=== PATIENT | male | born 1940 | race Caucasian/White ===

== ENCOUNTER 2019-10-05 10:28 | Outpatient (CLI) | payer MEDICARE, SELFPAY ==
--- NOTE | ~2019-10-05 | CT_ITS ---
EXAMINATION: CT soft tissue neck w con DATE: 10/05/2019 11:12 INDICATION: Sialoadenitis and acute pharyngitis. TECHNIQUE: Computed tomography (CT) of the neck was performed with 75 mL Omnipaque-350 intravenous co ntrast. Automated exposure control and iterative reconstruction technique were employed. The dose-ivan gth product was 602.58 mGy-cm. COMPARISON: None FINDINGS: Thyroid gland is unremarkable. There is a small lobule of the right parotid which extends anteriorly over the right masseter muscle which is unchanged since brain MR dated 12/23/2008. Submandibular and p arotid glands are otherwise symmetric. The deep spaces of the neck including the parapharyngeal soft tissues appear normal and symmetric. No abscess. There are scattered normal-sized lymph nodes in the neck, no lymphadenopathy. No masses identified. Atherosclerotic calcifications without hemodynamical ly significant stenosis at the left carotid bulb. Left internal carotid arteries are tortuous. Left v ertebral artery is dominant. Mastoid air cells and visualized paranasal sinuses are clear. Airway is unremarkable. Calcified pleural plaques along small portions of the visualized posterior left hemitho rax. Ectatic ascending thoracic aorta measuring up to 4.4 x 4.3 cm. Visualized superior mediastinum i s otherwise unremarkable. Severe cervical spondylosis. Partially visualized thoracic dextroscoliosis. IMPRESSION: 1. The salivary glands, prior pharyngeal soft tissues and other deep spaces of the neck are unremarka ble. No abscess. Reviewed, dictated and finalized at location A. IMPRESSION: 1. The salivary glands, prior pharyngeal soft tissues and other deep spaces of the neck are unremarkable. No abscess.
[2019-10-05 11:04] LABS: Estimated Glomerular Filt Rate > 60
[2019-10-05 11:38] LABS: Hemoglobin A1C 5.3 % (<5.7)
[2019-10-05 11:40] LABS: Blood Urea Nitrogen 13 mg/dL (9-20); Calcium 8.7 mg/dL (8.4-10.2); Carbon Dioxide 28 mmol/L (22-30); Chloride 105 mmol/L (98-107); Cholesterol 117 mg/dL (0-200); Estimated Glomerular Filt Rate > 60; Glucose 96 mg/dL (75-110); HDL Direct 46 mg/dL; Potassium 4.6 mmol/L (3.4-5.0); Sodium 135 mmol/L (137-145); Triglycerides 71 mg/dL (<150)
[2019-10-05 11:51] LABS: LDL Cholesterol Direct 57 mg/dL
[2019-10-05 12:00] LABS: Basophils Absolute Auto 0.1 K/mm3 (0.0-0.1); Basophils Percent Auto 1.2 % (0.2-1.2); Eosinophils Absolute Auto 0.3 K/mm3 (0-0.3); Eosinophils Percent Auto 3.6 % (0-4.4); Hematocrit 37.6 % (42.0-52.0); Hemoglobin 12.4 g/dL (14.0-18.0); Immature Granulocyte Absolute 0.02 K/mm3 (0.00-0.031); Immature Granulocyte Percent A 0.3 % (0-0.5); Lymphocytes Absolute Auto 1.27 K/mm3 (0.9-3.2); Lymphocytes Percent Auto 16.9 % (18.3-44.2); Mean Corpuscular Hemoglobin 32.1 pg (26-34); Mean Corpuscular Volume 97.4 fl (80-100); Mean Platelet Volume 12.2 fl (7.4-10.4); Monocytes Absolute Auto 0.9 K/mm3 (0.1-0.6); Monocytes Percent Auto 12.5 % (2.6-8.5); Neutrophils Absolute Auto 4.9 K/mm3 (1.3-6.7); Neutrophils Percent Auto 65.5 % (45.5-73.1); Platelet Count Result 128 k/mm3 (150-375); Red Blood Count 3.86 M/mm3 (4.6-6.20); Red Cell Distribution Width 12.8 % (11.5-14.5); White Blood Count 7.5 K/mm3 (4.5-10.0)
[2019-10-06 18:34] LABS: Homocysteine 8.6 umol/L (<11.4)
== END 2019-10-05 10:29 | disposition home or self-care (01) ==
PROVIDERS: PCP Internal Medicine; Visit Provider Internal Medicine
DX: J02.9 Acute pharyngitis, unspecified (principal); K11.20 Sialoadenitis, unspecified; Z79.899 Other long term (current) drug therapy; R79.89 Other specified abnormal findings of blood chemistry; E78.2 Mixed hyperlipidemia
CPT/HCPCS: 36415; 70491; 80048; 80061; 83036; 83090; 85025; Q9967

== ENCOUNTER → 2020-02-23 10:45 | Outpatient (CLI) | payer MEDICARE, SELFPAY ==
--- NOTE | ~2020-02-23 | MR_ITS ---
EXAMINATION: MR lumbar spine wo con DATE: 02/23/2020 11:40 INDICATION: Low back pain. TECHNIQUE: Magnetic resonance imaging (MRI) of the lumbar spine was performed without intravenous con trast. Sequences included sagittal T2-weighted FSE, sagittal T2-weighted FS FSE, sagittal T1-weighted FSE, and axial T2-weighted FSE. COMPARISON: Lumbar spine MRI 09/01/2018 FINDINGS: There is 11 degrees dextroscoliosis of thoracolumbar spine. There is a chronic burst fractu re of L3 with 2/5 loss of height and retropulsion of bone 2 mm into central spinal canal. Interverteb ral disc heights are normal. The distal spinal cord signal intensity is normal. The conus medullaris is at L1. There are cysts in the kidneys measuring up to 3.4 cm on the right. The following disc leve ls are specifically discussed: L1-L2: The disc is bulging. There is severe bilateral facet joint osteoarthritis. There is mild later al neural foraminal stenosis. There is mild central canal stenosis. L2-L3: The disc is bulging. There is severe bilateral facet joint osteoarthritis. There is hypertroph y of the ligamentum flavum. There is mild bilateral neural foraminal stenosis. There is mild central canal stenosis. L3-L4: The disc is bulging. There is severe bilateral facet joint osteoarthritis. There is hypertroph y of the ligamentum flavum. There is mild bilateral neural foraminal stenosis. There is mild central canal stenosis. L4-L5: The disc is bulging and has an annular fissure. There is severe bilateral facet joint osteoart hritis. There is hypertrophy of the ligamentum flavum. There is mild bilateral neural foraminal steno sis. There is mild central canal stenosis. L5-S1: The disc is bulging and has an annular fissure. There is severe right and moderate left facet joint osteoarthritis. There is mild right neural foraminal stenosis. There is mild central canal sten osis. IMPRESSION: 1. Mild lumbar spondylosis, stable from 09/01/2018. 2. Thoracolumbar dextroscoliosis. Reviewed, dictated and finalized at location B.
== END ==
PROVIDERS: PCP Internal Medicine; Visit Provider Nurse Practitioner Family
DX: M47.896 Other spondylosis, lumbar region (principal)
CPT/HCPCS: 72148

== ENCOUNTER 2020-05-03 12:19 | Outpatient (CLI) | payer MEDICARE, SELFPAY ==
--- NOTE | ~2020-05-03 | XR_ITS ---
EXAMINATION: XR shoulder RT min 2V DATE: 05/03/2020 13:29 INDICATION: Right shoulder pain. TECHNIQUE: 4 views of right shoulder were obtained. COMPARISON: Right shoulder radiographs 07/08/2014 FINDINGS: Bone alignment is normal. No fracture. There is mild osteoarthritis of glenohumeral joint a nd moderate osteoarthritis of acromioclavicular joint. There are changes of heart valve replacement. IMPRESSION: 1. Polyarticular osteoarthritis. Reviewed, dictated and finalized at location A.
[2020-05-03 14:04] LABS: Basophils Absolute Auto 0.1 K/mm3 (0.0-0.1); Basophils Percent Auto 0.6 % (0.2-1.2); Eosinophils Percent Auto 0.4 % (0-4.4); Hematocrit 41.1 % (42.0-52.0); Hemoglobin 13.7 g/dL (14.0-18.0); Immature Granulocyte Absolute 0.04 K/mm3 (0.00-0.031); Immature Granulocyte Percent A 0.4 % (0-0.5); Lymphocytes Absolute Auto 1.12 K/mm3 (0.9-3.2); Lymphocytes Percent Auto 11.2 % (18.3-44.2); Mean Corpuscular HGB Conc 33.3 g/dl (32-36); Mean Corpuscular Hemoglobin 32.9 pg (26-34); Mean Corpuscular Volume 98.8 fl (80-100); Mean Platelet Volume 11.6 fl (7.4-10.4); Monocytes Absolute Auto 1.2 K/mm3 (0.1-0.6); Neutrophils Absolute Auto 7.5 K/mm3 (1.3-6.7); Neutrophils Percent Auto 75.4 % (45.5-73.1); Platelet Count Result 203 k/mm3 (150-375); Red Blood Count 4.16 M/mm3 (4.6-6.20); Red Cell Distribution Width 12.8 % (11.5-14.5)
[2020-05-03 14:05] LABS: Alanine Aminotransferase 9 U/L (4-50); Alkaline Phosphatase 99 U/L (38-126); Anion Gap 5 mmol/L (8-16); Aspartate Amino Transferase 21 U/L (17-59); Bilirubin,Total 2.1 mg/dL (0.2-1.3); Blood Urea Nitrogen 14 mg/dL (9-20); Carbon Dioxide 31 mmol/L (22-30); Chloride 104 mmol/L (98-107); Estimated Glomerular Filt Rate > 60; Glucose 103 mg/dL (75-110); Lactate Dehydrogenase 477 U/L (313-618); Potassium 5.3 mmol/L (3.4-5.0); Sodium 140 mmol/L (137-145)
[2020-05-03 14:08] LABS: Add Urine Microscopic? YES; Appearance Urine Clear (Clear); Bacteria Urine Trace /hpf; Bilirubin Urine Negative (Negative); Blood Urine Negative (Negative); Color Urine Yellow (Yellow); Glucose Urine UA Negative (Negative); Ketones Urine Trace mg/dL (Negative); Leukocyte Esterase Ur Negative LEU/UL (NEGATIVE); Mucus Urine Few /lpf; Nitrate Urine Negative (Negative); Protein Urine Negative (Negative); RBC Urine 0-2 /hpf (0-2); Specific Grav Ur 1.021 (1.001-1.035); WBC Urine 0-3 /hpf (0-3)
[2020-05-03 14:39] LABS: Free T4 Free Thyroxine 1.05 ng/mL (0.78-2.19)
[2020-05-03 14:46] LABS: Influenza Control Positive
== END 2020-05-03 12:20 | disposition home or self-care (01) ==
PROVIDERS: PCP Internal Medicine; Visit Provider Internal Medicine
DX: R53.83 Other fatigue (principal); R61 Generalized hyperhidrosis; R69 Illness, unspecified; M25.50 Pain in unspecified joint; M25.519 Pain in unspecified shoulder
CPT/HCPCS: 73030; 80053; 81001; 83615; 84439; 84443; 85025; 87086; 87804

== ENCOUNTER 2020-05-05 09:22 | Outpatient (CLI) | payer MEDICARE, SELFPAY ==
[2020-05-05 10:06] LABS: CRP 1.7 mg/dL (<1.0)
[2020-05-05 10:54] LABS: Erythrocyte Sedimentation Rate 23 mm/hr (0-20)
== END 2020-05-05 09:23 | disposition home or self-care (01) ==
PROVIDERS: PCP Internal Medicine; Visit Provider Internal Medicine
DX: M25.50 Pain in unspecified joint (principal)
CPT/HCPCS: 36415; 85652; 86140

== ENCOUNTER 2020-05-10 14:20 | Outpatient (CLI) | payer MEDICARE, SELFPAY ==
--- NOTE | ~2020-05-10 | CT_ITS ---
EXAMINATION: CT chest abdomen pelvis w con DATE: 05/10/2020 16:09 CDT INDICATION: Abnormal weight loss. TECHNIQUE: Computed tomography (CT) of the chest, abdomen, and pelvis was performed with 100 cc Omnip aque 350 intravenous contrast. The dose-length product was 761.07 mGy-cm. Automated exposure control and iterative reconstruction technique were employed. COMPARISON: CT dated 07/03/2018 FINDINGS: CHEST CT: Status post median sternotomy for CABG. Prosthetic aortic valve present. Cardiomegaly. No significant pleural or pericardial effusion. There is fusiform ascending thoracic aortic aneurysm measuring 4 cm . There is atherosclerosis of the aorta and coronary arteries. No thoracic lymphadenopathy. No endobr onchial lesions. No focal airspace consolidation. No suspicious pulmonary nodules or masses. ABDOMEN/PELVIS CT: Status post cholecystectomy with expected prominence of the bile ducts. There are calcified granuloma s in the spleen. There is mild pancreatic ductal dilation. The adrenal glands are unremarkable. There are bilateral renal cysts. There is bilateral renal cortical thinning. No evidence for abdominal aor tic aneurysm. No lymphadenopathy. No free air or free fluid. Nonobstructive bowel gas pattern. There is a surgical anastomotic site in the distal colon. Mild prostate enlargement. Stable sclerotic lesio n left ilium, likely bone islands. There are vertebroplasty changes at L3. Moderate thoracic spondylo sis. IMPRESSION: 1. Fusiform ascending thoracic aortic aneurysm measuring 4 cm. 2: Cardiomegaly. Status post median sternotomy for CABG. Prosthetic aortic valve present. 3: Status post cholecystectomy with expected prominence of the bile ducts and pancreatic duct. Reviewed, dictated and finalized at location A. IMPRESSION: 1. Fusiform ascending thoracic aortic aneurysm measuring 4 cm. 2: Cardiomegaly. Status post median sternotomy for CABG. Prosthetic aortic valv e present. 3: Status post cholecystectomy with expected prominence of the bile ducts and p ancreatic duct.
== END 2020-05-10 14:21 | disposition home or self-care (01) ==
PROVIDERS: PCP Internal Medicine; Visit Provider Internal Medicine
DX: R63.4 Abnormal weight loss (principal); I71.2 Thoracic aortic aneurysm, without rupture; Z90.49 Acquired absence of other specified parts of digestive tract; I51.7 Cardiomegaly
CPT/HCPCS: 71260; 74177; Q9967

== ENCOUNTER 2020-06-30 08:15 | Outpatient (CLI) | payer MEDICARE, SELFPAY ==
[2020-06-30 08:36] LABS: Basophils Absolute Auto 0.1 K/mm3 (0.0-0.1); Basophils Percent Auto 0.4 % (0.2-1.2); Eosinophils Absolute Auto 0.1 K/mm3 (0-0.3); Eosinophils Percent Auto 0.9 % (0-4.4); Hemoglobin 13.5 g/dL (14.0-18.0); Immature Granulocyte Percent A 2.1 % (0-0.5); Immature Platelet Fraction Pct 4.7 % (0.9-11.2); Lymphocytes Percent Auto 3.6 % (18.3-44.2); Mean Corpuscular HGB Conc 33.8 g/dl (32-36); Mean Corpuscular Hemoglobin 34.4 pg (26-34); Mean Platelet Volume 10.5 fl (7.4-10.4); Monocytes Absolute Auto 1.3 K/mm3 (0.1-0.6); Monocytes Percent Auto 9.1 % (2.6-8.5); Neutrophils Absolute Auto 11.8 K/mm3 (1.3-6.7); Neutrophils Percent Auto 83.9 % (45.5-73.1); Platelet Count Result 139 k/mm3 (150-375); Red Blood Count 3.92 M/mm3 (4.6-6.20); Red Cell Distribution Width 15.1 % (11.5-14.5)
[2020-06-30 08:47] LABS: Alanine Aminotransferase 17 U/L (4-50); Albumin Level 3.3 g/dL (3.5-5.1); Alkaline Phosphatase 57 U/L (38-126); Anion Gap 3 mmol/L (8-16); Aspartate Amino Transferase 24 U/L (17-59); Bilirubin,Total 1.8 mg/dL (0.2-1.3); Blood Urea Nitrogen 19 mg/dL (9-20); CRP 1.2 mg/dL (<1.0); Calcium 8.8 mg/dL (8.4-10.2); Carbon Dioxide 31 mmol/L (22-30); Chloride 101 mmol/L (98-107); Cholesterol 161 mg/dL (0-200); Estimated Glomerular Filt Rate > 60; Glucose 96 mg/dL (75-110); HDL Direct 73 mg/dL; Potassium 4.5 mmol/L (3.4-5.0); Sodium 135 mmol/L (137-145); Triglycerides 105 mg/dL (<150)
[2020-06-30 08:56] LABS: LDL Cholesterol Direct 64 mg/dL
[2020-06-30 09:16] LABS: Erythrocyte Sedimentation Rate 6 mm/hr (0-20)
[2020-06-30 09:19] LABS: Free T4 Free Thyroxine 0.95 ng/mL (0.78-2.19)
[2020-06-30 09:55] LABS: Folic Acid > 20.0 ng/mL (2.76->20)
== END 2020-06-30 08:16 | disposition home or self-care (01) ==
PROVIDERS: PCP Internal Medicine; Visit Provider Internal Medicine
DX: M35.3 Polymyalgia rheumatica (principal); Z79.899 Other long term (current) drug therapy; E53.8 Deficiency of other specified B group vitamins; E78.2 Mixed hyperlipidemia
CPT/HCPCS: 36415; 80053; 80061; 82607; 82746; 84439; 84443; 85025; 85055; 85652; 86140

== ENCOUNTER 2020-07-17 09:13 | Emergency (ER) | payer MEDICARE, SELFPAY ==
--- NOTE | ~2020-07-17 | XR_ITS ---
XR lumbar spine min 4V 07/17/2020 10:48 Indication: Low back pain after fall Procedure: 5 views lumbar spine Comparison: 09/01/2018 Findings: There is a chronic superior plate compression fracture treated with vertebroplasty. There i s extruded methacrylate in the disc space at L2-3. There is disc narrowing at the remainder of the clem mbar levels. There is moderate multilevel facet hypertrophy. No acute fracture or traumatic malalignm ent. Pedicles intact. There is dextrocurvature of the thoracolumbar spine. Impression: 1: Moderate lumbar spondylosis with dextrocurvature of the thoracolumbar spine. Reviewed, dictated and finalized at location A. [employer] Impression: 1: Moderate lumbar spondylosis with dextrocurvature of the thoracolumbar spine.
[2020-07-17 09:22] VITALS: BP 144/73; PULSE 74; RESP 18; TEMP 36.3; O2SAT 100
--- NOTE | 2020-07-17 10:02 | ED.FALL ---
HPI - Fall General Chief Complaint: Fall Stated Complaint: Fall - LEFT side pain Time Seen by Provider: 07/17/20 09:52 History of Present Illness HPI Narrative: Patient is a 79-year-old male with history of chronic low back pain who comes emergency room today complaining of worsening low back pain after a fall. Patient reports that he was just coming home from walking his dog when it felt like his left leg gave out and he fell down. He landed on his left knee and then caught himself with his hands. He did not hit his head or hit his abdomen or hit his back. reports that this made his back pain worse. Reports similar history of back pain in the past but not quite this severe. The pain is nonradiating. There is no numbness or tingling. No bowel or bladder incontinence. No fevers. Pain seems to be worse when he lies down. Able to ambulate without assistance which does not exacerbate his pain. He is already on Jeff and prednisone and meloxicam at home for his chronic back pain. He also gets injections for his chronic pain. Related Data Home Medications Medication Instructions Recorded Confirmed aspirin 81 mg tablet,delayed 81 mg PO DAILY 06/04/19 07/03/20 release carvedilol 3.125 mg tablet 3.125 mg PO Q12H 06/04/19 07/03/20 hydrocodone 5 mg-acetaminophen 325 1 tablet PO Q6H PRN 06/04/19 07/03/20 mg tablet niacin 500 mg tablet 500 mg PO DAILY 06/04/19 07/03/20 spironolactone 25 mg tablet 25 mg PO DAILY 06/04/19 07/03/20 lisinopril 2.5 mg tablet 2.5 mg PO DAILY 10/06/19 07/03/20 Allergies Allergy/AdvReac Type Severity Reaction Status Date / Time No Known Allergies Allergy Verified 07/17/20 09:25 Review of Systems Review of Systems: All systems reviewed & are unremarkable except as noted in HPI and below [facility] Past Medical History Medical History (Updated 07/17/20 @ 11:45 by Bebeto Mcgovern PA-C) AB (asthmatic bronchitis) ASHD (arteriosclerotic heart disease) BMI 22.0-22.9, adult BMI 23.0-23.9, adult BMI 24.0-24.9, adult Bradycardia Bronchitis CAD (coronary artery disease) Chronic low back pain Cognitive dysfunction Depressed mood Elevated homocysteine Encounter for Medicare annual wellness exam Encounter for routine adult health examination without abnormal findings GERD (gastroesophageal reflux disease) Hearing loss History of hemochromatosis Hyperlipidemia Illness Multiple joint pain On group home drug therapy Parotiditis Pulmonary granuloma Sore throat Unexplained weight loss URI (upper respiratory infection) Ventricular bigeminy Surgical History Surgical History History of colon resection S/P AVR (aortic valve replacement) Family History Family History Sibling Hypertension Family history of malignant neoplasm of bone Father Family history of emphysema Family history of tuberculosis Family history of malignant neoplasm Mother Hypertension Family history of Parkinson's disease Social History Social History Smoking status: Never smoker Alcohol intake: never Exam Const: General: no acute distress and alert Orientation/consciousness: patient oriented x3 Other: Pleasant, no distress, cooperative HENMT: Head: normal to inspection Eyes: Conjunctivae: conjunctivae normal Pupils: Equal, round and reactive pupils present Neck: Neck: normal visual inspection Chest: Chest palpation & inspection: normal inspection of the chest Resp: Effort & Inspection: normal respiratory effort Auscultation: clear to auscultation bilaterally Cardio: Rate: regular rate Rhythm: regular rhythm GI: Inspection: non-distended GI Palp: Yes Soft to palpation and No Tenderness to palpation present (GI) Back/Spine/Pelvis: Other: Tender to palpate diffusely over lumbar spinous processes and left-sided lumbar musculature.
[2020-07-17] MEDS: oxyCODONE/ACETAMINOPHEN (*CRX) 5-325 MG TABLET 1 TABLET PO (10:32)
[2020-07-17 12:15] VITALS: BP 162/100; PULSE 63; RESP 16; O2SAT 100
== END 2020-07-17 12:20 | disposition home or self-care (01) ==
PROVIDERS: Emergency Provider Emergency Medicine; PCP Internal Medicine
DX: M54.5 Low back pain (principal); G89.29 Other chronic pain; I25.10 Atherosclerotic heart disease of native coronary artery without angina pectoris; J45.909 Unspecified asthma, uncomplicated; K21.9 Gastro-esophageal reflux disease without esophagitis; E78.5 Hyperlipidemia, unspecified; Z95.2 Presence of prosthetic heart valve; Z90.49 Acquired absence of other specified parts of digestive tract; Z79.82 Long term (current) use of aspirin
CPT/HCPCS: 72110; 99283; A9270

== ENCOUNTER 2020-07-31 09:49 | Outpatient (CLI) | payer MEDICARE, SELFPAY ==
[2020-07-31 10:00] LABS: Basophils Absolute Auto 0.1 K/mm3 (0.0-0.1); Basophils Percent Auto 0.6 % (0.2-1.2); Eosinophils Percent Auto 0.1 % (0-4.4); Hematocrit 44.4 % (42.0-52.0); Immature Granulocyte Absolute 0.35 K/mm3 (0.00-0.031); Immature Granulocyte Percent A 2.2 % (0-0.5); Lymphocytes Percent Auto 5.1 % (18.3-44.2); Mean Corpuscular HGB Conc 33.8 g/dl (32-36); Mean Corpuscular Hemoglobin 33.9 pg (26-34); Mean Corpuscular Volume 100.2 fl (80-100); Mean Platelet Volume 10.3 fl (7.4-10.4); Monocytes Absolute Auto 0.8 K/mm3 (0.1-0.6); Neutrophils Absolute Auto 13.7 K/mm3 (1.3-6.7); Platelet Count Result 166 k/mm3 (150-375); Red Blood Count 4.43 M/mm3 (4.6-6.20); Red Cell Distribution Width 13.7 % (11.5-14.5); White Blood Count 15.7 K/mm3 (4.5-10.0)
[2020-07-31 10:17] LABS: Anion Gap 2 mmol/L (8-16); Blood Urea Nitrogen 23 mg/dL (9-20); CRP < 0.5 mg/dL (<1.0); Calcium 9.5 mg/dL (8.4-10.2); Carbon Dioxide 33 mmol/L (22-30); Chloride 99 mmol/L (98-107); Estimated Glomerular Filt Rate 59; Glucose 118 mg/dL (75-110); Potassium 5.1 mmol/L (3.4-5.0); Sodium 134 mmol/L (137-145)
[2020-07-31 10:31] LABS: Erythrocyte Sedimentation Rate 1 mm/hr (0-20)
== END 2020-07-31 09:50 | disposition home or self-care (01) ==
LOC: ANHLAB 09:50
PROVIDERS: PCP Internal Medicine; Visit Provider Internal Medicine
DX: M35.3 Polymyalgia rheumatica (principal); Z79.899 Other long term (current) drug therapy
CPT/HCPCS: 36415; 80048; 85025; 85652; 86140

== ENCOUNTER 2020-09-22 10:23 | Outpatient (CLI) | payer MEDICARE, SELFPAY ==
[2020-09-22 11:00] LABS: Basophils Absolute Auto 0.1 K/mm3 (0.0-0.1); Basophils Percent Auto 0.4 % (0.2-1.2); Eosinophils Percent Auto 0.3 % (0-4.4); Hematocrit 41.4 % (42.0-52.0); Immature Granulocyte Absolute 0.11 K/mm3 (0.00-0.031); Immature Granulocyte Percent A 0.9 % (0-0.5); Lymphocytes Percent Auto 8.3 % (18.3-44.2); Mean Corpuscular HGB Conc 33.8 g/dl (32-36); Mean Corpuscular Hemoglobin 33.8 pg (26-34); Mean Platelet Volume 10.8 fl (7.4-10.4); Monocytes Absolute Auto 1.2 K/mm3 (0.1-0.6); Neutrophils Absolute Auto 9.7 K/mm3 (1.3-6.7); Neutrophils Percent Auto 80.1 % (45.5-73.1); Platelet Count Result 198 k/mm3 (150-375); Red Blood Count 4.14 M/mm3 (4.6-6.20); Red Cell Distribution Width 12.3 % (11.5-14.5); White Blood Count 12.1 K/mm3 (4.5-10.0)
[2020-09-22 11:14] LABS: Anion Gap 1 mmol/L (8-16); Blood Urea Nitrogen 16 mg/dL (9-20); CRP < 0.5 mg/dL (<1.0); Calcium 9.4 mg/dL (8.4-10.2); Carbon Dioxide 32 mmol/L (22-30); Chloride 107 mmol/L (98-107); Estimated Glomerular Filt Rate > 60; Glucose 103 mg/dL (75-110); Potassium 4.3 mmol/L (3.4-5.0); Sodium 140 mmol/L (137-145)
[2020-09-22 11:45] LABS: Erythrocyte Sedimentation Rate 6 mm/hr (0-20)
== END 2020-09-22 10:24 | disposition home or self-care (01) ==
PROVIDERS: PCP Internal Medicine; Visit Provider Internal Medicine
DX: Z79.899 Other long term (current) drug therapy (principal); M35.3 Polymyalgia rheumatica
CPT/HCPCS: 36415; 80048; 85025; 85652; 86140

== ENCOUNTER 2020-09-27 10:17 | Emergency (ER) | payer MEDICARE, SELFPAY ==
--- NOTE | ~2020-09-27 | XR_ITS ---
EXAMINATION: XR lumbar spine 2-3V DATE: 09/27/2020 12:56 INDICATION: Low back pain TECHNIQUE: Anteroposterior and lateral views of the lumbar spine, and cone-down lateral view of the l umbosacral junction were obtained. COMPARISON: Lumbar spine radiographs dated 07/17/[address] abdomen and pelvis dated 05/10/2020 FINDINGS: Mild lumbar dextrocurvature. Sagittal alignment is normal.. Again seen is a mild L3 compression fract ure with change of prior vertebroplasty with extension of some methylmethacrylate into the widened L2 -L3 disc space. Remaining lumbar vertebral body heights are normal. Mild disc height loss at L3-L4 an d L5-S1. Multilevel moderate to severe lumbar facet osteoarthritis. Cholecystectomy clips in right up per quadrant. Median sternotomy wires and changes of prior aortic valve repair. Sigmoid colon anastom otic suture line. IMPRESSION: 1. Mild lumbar dextrocurvature with moderate spondylosis. 2. Chronic mild L3 compression fracture with prior vertebroplasty. Reviewed, dictated and finalized at location B.
[2020-09-27 10:13] VITALS: BP 154/51; PULSE 47; RESP 16; TEMP 36.7; O2SAT 100
[2020-09-27] MEDS: HYDROcodone/acetaminophen (*CRX) 5-325 MG TABLET 1 TAB PO (10:58)
[2020-09-27 11:53] LABS: Basophils Absolute Auto 0.1 K/mm3 (0.0-0.1); Basophils Percent Auto 0.4 % (0.2-1.2); Eosinophils Percent Auto 0.3 % (0-4.4); Hematocrit 40.5 % (42.0-52.0); Hemoglobin 14.2 g/dL (14.0-18.0); Immature Granulocyte Absolute 0.12 K/mm3 (0.00-0.031); Immature Granulocyte Percent A 0.8 % (0-0.5); Lymphocytes Absolute Auto 0.94 K/mm3 (0.9-3.2); Lymphocytes Percent Auto 6.1 % (18.3-44.2); Mean Corpuscular HGB Conc 35.1 g/dl (32-36); Mean Corpuscular Hemoglobin 34.7 pg (26-34); Mean Platelet Volume 10.8 fl (7.4-10.4); Monocytes Absolute Auto 1.2 K/mm3 (0.1-0.6); Monocytes Percent Auto 7.9 % (2.6-8.5); Neutrophils Percent Auto 84.5 % (45.5-73.1); Platelet Count Result 156 k/mm3 (150-375); Red Blood Count 4.09 M/mm3 (4.6-6.20); Red Cell Distribution Width 12.3 % (11.5-14.5); White Blood Count 15.4 K/mm3 (4.5-10.0)
[2020-09-27 12:07] LABS: Anion Gap 4 mmol/L (8-16); Blood Urea Nitrogen 17 mg/dL (9-20); CRP 0.6 mg/dL (<1.0); Calcium 9.2 mg/dL (8.4-10.2); Carbon Dioxide 30 mmol/L (22-30); Chloride 104 mmol/L (98-107); Estimated CRCL calculation 46 ml/min; Estimated Glomerular Filt Rate 54; Glucose 102 mg/dL (75-110); Potassium 4.2 mmol/L (3.4-5.0); Sodium 138 mmol/L (137-145)
[2020-09-27 12:34] LABS: Erythrocyte Sedimentation Rate 9 mm/hr (0-20)
--- NOTE | 2020-09-27 12:54 | PC.NURSE ---
Patient walked without difficulty and in no distress up and down shirley at this time, EDP aware
--- NOTE | 2020-09-27 13:13 | ED.BACK ---
HPI - Back Pain/Injury General Chief Complaint: Back Pain/Injury Stated Complaint: BACK PAIN History of Present Illness HPI Narrative: Patient is a 79-year-old male who presents ER with low back pain ongoing for about a month. Reports he went to pain management other day and is unsure what they did. He is scheduled follow-up with his PCP tomorrow in regards to this. Reports he occasionally takes some ibuprofen to help with his pain. Denies fevers or chills or sweats. No lower extremity weakness. Reports pain sometimes goes into his thighs but no numbness or tingling in the legs or saddle anesthesia. No difficulty with urination or walking. Related Data Home Medications Medication Instructions Recorded Confirmed aspirin 81 mg tablet,delayed 81 mg PO DAILY 06/04/19 07/31/20 release carvedilol 3.125 mg tablet 3.125 mg PO Q12H 06/04/19 07/31/20 hydrocodone 5 mg-acetaminophen 325 1 tablet PO Q6H PRN 06/04/19 07/31/20 mg tablet niacin 500 mg tablet 500 mg PO DAILY 06/04/19 07/31/20 spironolactone 25 mg tablet 25 mg PO DAILY 06/04/19 07/31/20 lisinopril 2.5 mg tablet 2.5 mg PO DAILY 10/06/19 07/31/20 Allergies Allergy/AdvReac Type Severity Reaction Status Date / Time No Known Allergies Allergy Verified 09/27/20 10:19 Review of Systems Review of Systems: All systems reviewed & are unremarkable except as noted in HPI and below Constitutional: Constitutional: Denies chills, Denies fever(s) and Denies weakness Musculoskeletal: Musculoskeletal: Reports back pain and Denies muscle cramps Neurologic: Denies headache(s), Denies focal weakness and Denies numbness [facility] Past Medical History Medical History (Updated 09/27/20 @ 13:47 by Jaime Burroughs MD) AB (asthmatic bronchitis) ASHD (arteriosclerotic heart disease) BMI 22.0-22.9, adult BMI 23.0-23.9, adult BMI 24.0-24.9, adult Bradycardia Bronchitis CAD (coronary artery disease) Chronic low back pain Cognitive dysfunction Depressed mood Elevated homocysteine Encounter for Medicare annual wellness exam Encounter for routine adult health examination without abnormal findings Fall Follow up GERD (gastroesophageal reflux disease) Hearing loss History of hemochromatosis Hyperlipidemia Illness Multiple joint pain On financial systems administrator drug therapy Parotiditis Pulmonary granuloma Sore throat Unexplained weight loss URI (upper respiratory infection) Ventricular bigeminy Surgical History Surgical History (Reviewed 07/31/20 @ 09:20 by Aurora Gonsalves [facility]) History of colon resection S/P AVR (aortic valve replacement) Family History Family History (Reviewed 07/31/20 @ 09:20 by Aurora Gonsalves [facility]) Sibling Hypertension Family history of malignant neoplasm of bone Father Family history of emphysema Family history of tuberculosis Family history of malignant neoplasm Mother Hypertension Family history of Parkinson's disease Social History Social History (Reviewed 07/31/20 @ 09:20 by Aurora Gonsalves [facility]) Smoking status: Never smoker Alcohol intake: never Exam Narrative: Exam Narrative: GENERAL: Well-appearing, well-nourished, and in no acute distress. HEAD: Normocephalic, atraumatic. ENT: Mucous membranes moist. CHEST: Clear to auscultation. No respiratory distress. HEART: Regular rate and rhythm. Normal peripheral pulses. ABDOMEN: Soft, nontender, nondistended. Back: No midline tenderness of thoracic or lumbar spine. Patient reports modest discomfort in the sacral region over the glutes. No visual evidence of trauma. EXTREMITIES: Normal range of motion. Ambulates with a steady gait. No edema. SKIN: Warm, dry, no rash. NEURO: Alert and oriented x3. Course Course Emergency Course: Patient's pain improved with Levan. Ambulates with a steady gait. Has close follow-up with PCP. Discharge home. Vital Signs Vital signs: Vital Signs Temperature 98.0 F 09/27/20 10:13 Pulse Rate 47 L 09/27/20 10:13 Respiratory Rate 16
[2020-09-27 14:01] VITALS: BP 148/76; PULSE 52; RESP 18; O2SAT 100
== END 2020-09-27 14:02 | disposition home or self-care (01) ==
PROVIDERS: Emergency Provider Emergency Medicine; PCP Internal Medicine
DX: M54.5 Low back pain (principal); G89.29 Other chronic pain; Z79.82 Long term (current) use of aspirin; J45.909 Unspecified asthma, uncomplicated; I25.10 Atherosclerotic heart disease of native coronary artery without angina pectoris; K21.9 Gastro-esophageal reflux disease without esophagitis; E78.5 Hyperlipidemia, unspecified; Z90.49 Acquired absence of other specified parts of digestive tract; Z95.2 Presence of prosthetic heart valve; M47.816 Spondylosis without myelopathy or radiculopathy, lumbar region
CPT/HCPCS: 36415; 72100; 80048; 85025; 85652; 86140; 99283; A9270

== ENCOUNTER 2020-10-23 13:17 | Outpatient (CLI) | payer MEDICARE, SELFPAY | END 2020-10-23 13:18 | disposition home or self-care (01) | LOC: ANHCOVIDVC 13:17 | PROVIDERS: PCP Internal Medicine | DX: Z23 Encounter for immunization (principal) | CPT/HCPCS: 0001A; 91300 ==

== ENCOUNTER 2020-11-02 10:00 | Outpatient (RCR) | payer MEDICARE, SELFPAY ==
--- NOTE | 2020-10-11 14:55 | PTOPEVAL ---
PHYSICAL THERAPY EVALUATION AND PLAN OF CARE 10-11-20 Thank you for referring Marcel Awad to [facility].? He is scheduled to be seen for therapy? 2 x/week for 3 weeks. Please review, sign, date and return this plan of care GUILHERME. I agree with and certify that the following plan of care is medically necessary. Referring Physician Date Referring Provider: Marcus Childs MD PT Outpatient Evaluation Document 10/11/20 13:50 FIDEL (Rec: 10/11/20 14:55 FIDEL [id number]) Outpatient Past Medical History Past Medical History Source of Past Medical History Recalled from Previous Visit, Confirmed with Patient/Family Neurological History Hx Neurological Disorders No Significant History Cardiovascular History Hx Cardiac Surgery Yes: valve replacement Hx Chest Pain Yes Hx Hypertension Yes: meds Respiratory History Hx Respiratory Disorders No Significant History Gastrointestinal History Hx Gastrointestinal Disorders No Significant History Musculoskeletal History Hx Back Injury Yes: knee and back pain s/p fall Hx Back Pain Yes: follow with pain managment for LBP Endocrine History Hx Endocrine Disorders No Significant History HEENT History Hx HEENT Disorders No Significant History Other History Hx Other Medical Conditions Yes: dementia Evaluation Information Problem Diagnosis decreased mobility Onset Aug 14, 2020 Subjective Information fell in Fe, walked into home, Query Text:As Reported By Patient/ after taking dog for walk, Family knee gave out, fell forward and landed onto L knee; back and L knee pain; went to ER; had PT at another facility for back pain; to ER about 2 weeks ago due to increased pain in back, unable to get out of shower seat with bathing, had to call ambulance; x rays negative; Previous Treatments Previous Treatments For This Problem recently at another facility for LBP; no PT for balance/ walking Prior Level of Function Activity Level (Last 3 Months) Occupation retired Activity of Daily Living Ability Independent Indoor/Home Mobility Independent Community Mobility Independent Stairs Ability Independent Functional Cognition (Planning, Shopping Independent , Taking Medications) Cooking
--- NOTE | 2020-10-24 13:38 | PCPTNOTE ---
Patient called & cancelled scheduled appointment this date due to not feeling well.
--- NOTE | 2020-11-02 10:19 | PTOPEVAL ---
PHYSICAL THERAPY DISCHARGE 11-02-20 Refer to the clinical summary below for his status today, compared to the initial evaluation. He achieved all of the goals, except he is not able to perform sit/stand transfer without use of UE's. Thank you for referring Marcel wAad to [facility] Please review, sign, date and return this Discharge GUILHERME. I agree with and certify that the following plan of care is medically necessary. Referring Physician Date Referring Provider: Marcus Childs MD Document 11/02/20 09:50 FIDEL (Rec: 11/02/20 10:19 FIDEL [id number]) Assessment Status Discharge Subjective Information Marcel reports: balance is Query Text:As Reported By Patient/ sometime shaky due to bad Family back; is walking is dog without any problems, about 25 -30 min, 2x/day; is doing yard work and home chores; take breaks when back hurts; doing exercises from therapy at home; agree to discharge from PT services. Pain Assessment Timing of Pain Assessment Timing of Pain Assessment Assessment Pain Scale Pain Scale Used Numeric (1 - 10) Self Report Pain Assessment Bilateral Back Reported Pain Level 5 Pain Frequency Chronic Other Pain Description stiff and hurting this morning Pain Score Pain Score 5: Self Report Interventions Used Interventions Used By Clinicians Education Lower Extremity Muscle Strength Testing General Lower Extremity Strength Gross Lower Extremity Strength functional strength testing: supine SLR R 13/ L 14 reps; bridge 23 reps; side lying hip abduction R 20/ L 20 reps Transfer Assessment Chair Transfer Assessment Sit to Stand Chair Transfer Ability Independent Stand to Sit Chair Transfer Ability Independent Chair Transfer Comments sit to stand requires use of 1 UE from 18 seat Balance Assessment Time Up Go (TUG) Timed Up and Go Test (TUG) (Seconds) 8 Assistive Devices None 5 Time Sit to Stand Time in Seconds 16 5 Time Sit to Stand Comments use of B UEs Query Text:Normative Data: If Greater Than 15 Seconds, 74% Increase Risk for Recurrent Falls Gait Assessment 2 Minute Walk Total Distance Walked (feet) 525 2 Minute Walk Gait Speed Score (feet/ 4.37 second) Number of Breaks Required 0 Rehab Teaching Rehab Teaching Teaching Topic Rehab Teaching Topic Components Home Program As Pertains To Plan of Care Discussion
== END 2020-11-03 10:33 | disposition home or self-care (01) ==
LOC: ANHPT 10:00
PROVIDERS: PCP Internal Medicine; Referring Provider Internal Medicine; Visit Provider Internal Medicine
DX: M35.3 Polymyalgia rheumatica (principal); R53.81 Other malaise; Z74.09 Other reduced mobility
CPT/HCPCS: 97110; 97112; 97161

== ENCOUNTER 2020-11-13 13:05 | Outpatient (CLI) | payer MEDICARE, SELFPAY | END 2020-11-13 13:06 | disposition home or self-care (01) | LOC: ANHCOVIDVC 13:05 | PROVIDERS: PCP Internal Medicine | DX: Z23 Encounter for immunization (principal) | CPT/HCPCS: 0002A; 91300 ==

== ENCOUNTER 2020-12-08 11:17 | Outpatient (CLI) | payer MEDICARE, SELFPAY ==
[2020-12-08 12:28] LABS: Basophils Absolute Auto 0.1 K/mm3 (0.0-0.1); Basophils Percent Auto 0.8 % (0.2-1.2); Eosinophils Absolute Auto 0.1 K/mm3 (0-0.3); Eosinophils Percent Auto 1.1 % (0-4.4); Hematocrit 37.8 % (42.0-52.0); Hemoglobin 12.4 g/dL (14.0-18.0); Immature Granulocyte Absolute 0.03 K/mm3 (0.00-0.031); Immature Granulocyte Percent A 0.3 % (0-0.5); Lymphocytes Absolute Auto 1.18 K/mm3 (0.9-3.2); Lymphocytes Percent Auto 13.4 % (18.3-44.2); Mean Corpuscular HGB Conc 32.8 g/dl (32-36); Mean Corpuscular Hemoglobin 32.8 pg (26-34); Mean Platelet Volume 11.3 fl (7.4-10.4); Monocytes Absolute Auto 1.1 K/mm3 (0.1-0.6); Monocytes Percent Auto 12.3 % (2.6-8.5); Neutrophils Absolute Auto 6.4 K/mm3 (1.3-6.7); Neutrophils Percent Auto 72.1 % (45.5-73.1); Platelet Count Result 179 k/mm3 (150-375); Red Blood Count 3.78 M/mm3 (4.6-6.20); Red Cell Distribution Width 12.6 % (11.5-14.5); White Blood Count 8.8 K/mm3 (4.5-10.0)
[2020-12-08 12:37] LABS: Alanine Aminotransferase 8 U/L (4-50); Albumin Level 3.6 g/dL (3.5-5.1); Alkaline Phosphatase 85 U/L (38-126); Anion Gap 4 mmol/L (8-16); Aspartate Amino Transferase 21 U/L (17-59); Bilirubin,Total 1.2 mg/dL (0.2-1.3); Blood Urea Nitrogen 15 mg/dL (9-20); CRP 0.8 mg/dL (<1.0); Calcium 9.3 mg/dL (8.4-10.2); Carbon Dioxide 29 mmol/L (22-30); Chloride 106 mmol/L (98-107); Cholesterol 129 mg/dL (0-200); Estimated Glomerular Filt Rate > 60; Glucose 93 mg/dL (75-110); HDL Direct 56 mg/dL; Potassium 4.3 mmol/L (3.4-5.0); Sodium 139 mmol/L (137-145); Triglycerides 52 mg/dL (<150)
[2020-12-08 12:48] LABS: LDL Cholesterol Direct 48 mg/dL
[2020-12-08 13:07] LABS: Erythrocyte Sedimentation Rate 16 mm/hr (0-20)
[2020-12-12 12:01] LABS: Vitamin D 1,25 (OH)2 Total 36 pg/mL (18-72); Vitamin D2 1,25 (OH)2 <8 pg/mL; Vitamin D3 1,25 (OH)2 36 pg/mL
== END 2020-12-08 11:18 | disposition home or self-care (01) ==
PROVIDERS: PCP Internal Medicine; Visit Provider Internal Medicine
DX: M35.3 Polymyalgia rheumatica (principal); Z79.899 Other long term (current) drug therapy; E78.2 Mixed hyperlipidemia; E55.9 Vitamin D deficiency, unspecified
CPT/HCPCS: 36415; 80053; 80061; 82652; 85025; 85652; 86140

== ENCOUNTER 2020-12-15 08:13 | Outpatient (CLI) | payer MEDICARE, SELFPAY ==
[2020-12-15 09:24] LABS: Iron 106 ug/dL (49-181)
[2020-12-15 09:35] LABS: Percent Iron Saturation 49 % (20-50)
== END 2020-12-15 08:14 | disposition home or self-care (01) ==
PROVIDERS: PCP Internal Medicine; Visit Provider Internal Medicine
DX: D64.9 Anemia, unspecified (principal)
CPT/HCPCS: 36415; 82728; 83540; 83550

== ENCOUNTER 2020-12-19 11:15 | Emergency (ER) | payer MEDICARE, SELFPAY ==
[2020-12-19] VITALS (11 sets, daily range): BP systolic 123–175; BP diastolic 84–114; PULSE 72–102; RESP 18; O2SAT 98
--- NOTE | ~2020-12-19 | XR_ITS ---
EXAMINATION: XR chest 2V EXAM DATE: 12/19/2020 12:01 INDICATION: Fell, near syncope. TECHNIQUE: Frontal and lateral projections of the chest obtained and reviewed. Comparison is made to prior examination from 05/03/2011. FINDINGS: Sternotomy wires are present without findings to suggest sternal dehiscence. Some chronic h yperinflation. Aortic valve replacement. Cardiomediastinal silhouette is normal. No confluent consoli dation, pneumothorax or pleural effusion suspected. Patient has diffuse idiopathic skeletal hyperosto sis (DISH). IMPRESSION: No acute cardiopulmonary findings. Reviewed, dictated and finalized at location A.
--- NOTE | 2020-12-19 11:25 | ECG_ITS ---
Measurements Intervals [place] Rate: 70 P: OR: 0 QRS: -27 QRSD: 93 T: 16 QT: 416 QTc: 451 Interpretive Statements SINUS RHYTHM VENTRICULAR PREMATURE COMPLEXES AND FREQUENT ATRIAL PREMATURE COMPLEXES DELAYED PRECORDIAL R/S TRANSITION VOLTAGE CRITERIA FOR LVH BASELINE ARTIFACT- II, III, AVR, AVF, V3-V6 ABNORMAL ECG Electronically Signed On 12-19-2020 12:11:06 CDT by Aldo Linton D.O.
[2020-12-19] MEDS: SODIUM CHLORIDE 0.9% IV 1,000 ML 999 ML IV CONT (11:38)
[2020-12-19 11:55] LABS: Basophils Absolute Auto 0.1 K/mm3 (0.0-0.1); Basophils Percent Auto 0.4 % (0.2-1.2); Eosinophils Percent Auto 0.2 % (0-4.4); Hematocrit 41.2 % (42.0-52.0); Hemoglobin 13.6 g/dL (14.0-18.0); Immature Granulocyte Absolute 0.05 K/mm3 (0.00-0.031); Immature Granulocyte Percent A 0.4 % (0-0.5); Lymphocytes Absolute Auto 0.65 K/mm3 (0.9-3.2); Lymphocytes Percent Auto 5.4 % (18.3-44.2); Mean Corpuscular Hemoglobin 32.9 pg (26-34); Mean Corpuscular Volume 99.5 fl (80-100); Mean Platelet Volume 10.9 fl (7.4-10.4); Monocytes Absolute Auto 1.5 K/mm3 (0.1-0.6); Monocytes Percent Auto 12.5 % (2.6-8.5); Neutrophils Absolute Auto 9.8 K/mm3 (1.3-6.7); Neutrophils Percent Auto 81.1 % (45.5-73.1); Platelet Count Result 174 k/mm3 (150-375); Red Blood Count 4.14 M/mm3 (4.6-6.20); Red Cell Distribution Width 12.7 % (11.5-14.5)
[2020-12-19 12:06] LABS: Anion Gap 6 mmol/L (8-16); Blood Urea Nitrogen 12 mg/dL (9-20); Calcium 9.5 mg/dL (8.4-10.2); Carbon Dioxide 28 mmol/L (22-30); Chloride 102 mmol/L (98-107); Estimated CRCL calculation 55 ml/min; Estimated Glomerular Filt Rate > 60; Glucose 111 mg/dL (75-110); Potassium 4.6 mmol/L (3.4-5.0); Sodium 136 mmol/L (137-145)
[2020-12-19 12:06] LABS: Add Urine Microscopic? YES; Appearance Urine Clear (Clear); Bilirubin Urine Negative (Negative); Blood Urine Negative (Negative); Color Urine Yellow (Yellow); Glucose Urine UA Negative (Negative); Ketones Urine Negative (Negative); Leukocyte Esterase Ur Negative LEU/UL (Negative); Mucus Urine Rare /lpf; Nitrate Urine Negative (Negative); Protein Urine 2+ mg/dL (Negative); RBC Urine 0-2 /hpf (0-2); Specific Grav Ur 1.019 (1.001-1.035); WBC Urine 0-3 /hpf
[2020-12-19 12:17] LABS: Troponin I < 0.012 ng/mL (0.000-0.034)
--- NOTE | 2020-12-19 14:01 | ED.GENADULT ---
HPI - General Adult General Chief complaint: Syncope Stated complaint: Dizzy, nausea, near syncope Time Seen by Provider: 12/19/20 11:27 History of Present Illness HPI narrative: Patient is a 79-year-old male who presents ER with near syncope. Patient was getting his haircut when he began to feel nauseated. She then started having abdominal cramping and felt he needed use restroom. He stood up he got lightheaded and he was eased to the ground by the doty and his . He had no actual loss consciousness. No chest pain or chest pressure. No longer having dizziness or abdominal discomfort. He has been eating and drinking without issue over the last few days. No additional complaints. He never had any chest pain or chest pressure or racing the heart. No slurred speech or focal weakness. Related Data Home Medications Medication Instructions Recorded Confirmed aspirin 81 mg tablet,delayed 81 mg PO DAILY 06/04/19 12/08/20 release carvedilol 3.125 mg tablet 3.125 mg PO Q12H 06/04/19 12/08/20 hydrocodone 5 mg-acetaminophen 325 1 tablet PO Q6H PRN 06/04/19 12/08/20 mg tablet niacin 500 mg tablet 500 mg PO DAILY 06/04/19 12/08/20 spironolactone 25 mg tablet 25 mg PO DAILY 06/04/19 12/08/20 lisinopril 2.5 mg tablet 2.5 mg PO DAILY 10/06/19 12/08/20 Allergies Allergy/AdvReac Type Severity Reaction Status Date / Time No Known Allergies Allergy Verified 12/08/20 10:29 Review of Systems Review of Systems: All systems reviewed & are unremarkable except as noted in HPI and below Constitutional: Constitutional: Denies chills, Denies fever(s) and Denies weakness ENT: Denies nasal congestion and Denies sore throat Cardiovascular: Cardiovascular: Denies chest pain and Denies rapid heart rate Gastrointestinal: Gastrointestinal: Reports abdominal pain, Denies constipation, Denies diarrhea, Reports nausea and Denies vomiting Neurologic: Denies syncope, Denies focal weakness and Denies numbness PMFSH Past Medical History Medical History (Updated 12/19/20 @ 15:18 by Jaime Burroughs MD) AB (asthmatic bronchitis) Anemia ASHD (arteriosclerotic heart disease) BMI 21.0-21.9, adult BMI 22.0-22.9, adult BMI 23.0-23.9, adult BMI 24.0-24.9, adult Bradycardia Bronchitis CAD (coronary artery disease) Chronic low back pain Cognitive dysfunction Debility Depressed mood Elevated homocysteine Encounter for Medicare annual wellness exam Encounter for routine adult health examination without abnormal findings Fall Follow up GERD (gastroesophageal reflux disease) Hearing loss History of hemochromatosis Hyperlipidemia Illness Impaired functional mobility, balance, gait, and endurance Multiple joint pain On exterminator termite drug therapy Parotiditis Pulmonary granuloma Sore throat Unexplained weight loss URI (upper respiratory infection) Ventricular bigeminy Surgical History Surgical History History of colon resection S/P AVR (aortic valve replacement) Family History Family History Sibling Hypertension Family history of malignant neoplasm of bone Father Family history of emphysema Family history of tuberculosis Family history of malignant neoplasm Mother Hypertension Family history of Parkinson's disease Social History Social History Smoking status: Never smoker Alcohol intake: never Exam Narrative: Exam Narrative: GENERAL: Well-appearing, well-nourished, and in no acute distress. HEAD: Normocephalic, atraumatic. ENT: Mucous membranes moist. CHEST: Clear to auscultation. No respiratory distress. HEART: Regular rate with occasional dropped beat due to PVCs. Normal peripheral pulses. ABDOMEN: Soft, nontender, nondistended EXTREMITIES: Normal range of motion. No edema. SKIN: Warm, dry, no rash. NEURO: Alert and oriented x3. PSYCH: Paula
[2020-12-19] MEDS: SODIUM CHLORIDE 0.9% IV 500 ML 999 ML IV CONT (14:12)
== END 2020-12-19 15:37 | disposition home or self-care (01) ==
PROVIDERS: Emergency Provider Emergency Medicine; PCP Internal Medicine
DX: R55 Syncope and collapse (principal); D64.9 Anemia, unspecified; I25.10 Atherosclerotic heart disease of native coronary artery without angina pectoris; K21.9 Gastro-esophageal reflux disease without esophagitis; E78.5 Hyperlipidemia, unspecified
CPT/HCPCS: 36415; 71046; 80048; 81001; 84484; 85025; 93005; 96360; 99284; J7030; J7040

== ENCOUNTER 2020-12-31 10:05 | Inpatient (IN) | payer MEDICARE, SELFPAY ==
[2020-12-31] VITALS (12 sets, daily range): BP systolic 120–167; BP diastolic 63–86; PULSE 66–110; RESP 16–23; TEMP 36.3–37.1; O2SAT 95–99; BMI 19.5
--- NOTE | ~2020-12-31 | XR_ITS ---
EXAMINATION: XR chest 2V DATE: 12/31/2020 11:00 INDICATION: Weakness and low back pain TECHNIQUE: AP and lateral views of the chest are obtained. COMPARISON: 12/19/2020, 05/10/2020 FINDINGS: The lungs are free of acute opacities. Calcifications projecting over the left hemithorax a re consistent with pleural plaques seen on comparison CT.. There is no pleural effusion or pneumothor ax. The heart size is normal. There are changes of prior cardiac valve surgery. There are bridging os teophytes at multiple levels in the spine, consistent with diffuse idiopathic skeletal hyperostosis ( DISH). Vertebroplasty change is noted in the lumbar spine. Surgical clips in the right upper quadrant are likely from prior cholecystectomy. IMPRESSION: 1. No acute cardiopulmonary abnormality. Reviewed, dictated and finalized at location A.
--- NOTE | ~2020-12-31 | MR_ITS ---
EXAMINATION: MR brain/brain stem wo con DATE: 01/02/2021 10:48 INDICATION: Lower extremity weakness TECHNIQUE: Magnetic resonance imaging (MRI) of the brain and brainstem was performed without intraven ous contrast. Sequences included sagittal and axial T1-weighted SE, axial diffusion-weighted FS SE, a xial T2*-weighted GRE, axial T2-weighted FLAIR, and axial T2-weighted FSE. Apparent diffusion coeffic ient (ADC) maps were created. COMPARISON: Brain MR dated 10/05/2014 FINDINGS: There are no areas of restricted diffusion to suggest acute infarction. No intracranial hemorrhage or abnormal intracranial mass lesion. There are scattered areas of nonspecific increased T2-weighted si gnal intensity in the cerebral white matter, predominantly involving the deep and periventricular whi te matter. There are no intraparenchymal signal abnormalities seen on the other pulse sequences. Symm etric prominence of the sulci and ventricles consistent with mild age-appropriate diffuse cerebral vo lume loss. There are no abnormal extra-axial fluid collections. Flow voids are seen in the cerebral a rteries on the T2-weighted sequences consistent with their expected patency. Changes of bilateral int raocular lens replacement. Mild mucosal thickening the bilateral ethmoid sinuses. Visualized orbits a nd soft tissues are unremarkable. IMPRESSION: 1. Normal aging brain. No acute intracranial process. Reviewed, dictated and finalized at location A.
--- NOTE | ~2020-12-31 | XR_ITS ---
XR knee RT 2V DATE: 12/31/2020 20:57 INDICATION: Right knee pain. No recent injury. Anterior swelling. TECHNIQUE: AP and cross table lateral views COMPARISON: None FINDINGS: There is suprapatellar moderate joint effusion. Diffuse osteopenia. There is chondrocalcinosis. There is osteoarthritis of medial and patellofemoral compartments. No fracture or dislocation, periosteal reaction or bone destruction. IMPRESSION: Knee joint effusion Osteopenia Chondrocalcinosis Osteoarthritis of medial and patellofemoral compartments Reviewed, dictated and finalized at location A.
--- NOTE | ~2020-12-31 | US_ITS ---
EXAMINATION:US venous doppler LE BI INDICATION:Leg pain TECHNIQUE: Multiple grayscale, color flow and Doppler images of the right and left lower extremity de ep venous systems were obtained and reviewed. COMPARISON:No prior studies for comparison. FINDINGS: The common femoral, superficial femoral and popliteal veins demonstrate normal respiratory variation, augmentation and compressibility. Color flow is also seen within the posterior tibial, pe roneal, greater saphenous and profunda veins. IMPRESSION: 1: No lower extremity deep venous thrombosis. Reviewed, dictated and finalized at location B.
--- NOTE | ~2020-12-31 | CT_ITS ---
EXAMINATION: CT brain wo con INDICATION: Right lower limb weakness COMPARISON: 10/21/2017 TECHNIQUE: Standard unenhanced head CT. The dose-length product (DLP) was 354.92 mGy-cm. The mA was a djusted according to patient size. Iterative reconstruction technique was employed. FINDINGS: There is no acute intraparenchymal hemorrhage. No evidence of mass lesion. No evidence of a cute infarction. There is mild periventricular and subcortical hypodensity probably related to small vessel ischemic disease. There is mild prominence of the sulci and ventricles related to cerebral atr ophy. Intracranial calcified cerebral atherosclerosis is noted. There are no extra-axial collections. There is no mass effect or midline shift. Changes in the globes are likely from ocular lens surgery. The visualized sinuses and mastoid air cells are well aerated. IMPRESSION: 1. No acute intracranial abnormality. 2. Age related findings. Reviewed, dictated and finalized at location A.
--- NOTE | ~2020-12-31 | XR_ITS ---
EXAMINATION: XR foot RT min 3V DATE: 12/31/2020 12:02 INDICATION: Right foot pain TECHNIQUE: Dorsoplantar, lateral, and 2 oblique views of the right foot were obtained. COMPARISON: None. FINDINGS: There is no fracture, dislocation, or subluxation. Mild to moderate osteoarthritis is noted in the first metatarsophalangeal joint and multiple interphalangeal joints. Mild osteoarthritis is a lso noted in the midfoot. A plantar calcaneal enthesophyte is noted. IMPRESSION: 1. No acute osseous abnormality. Reviewed, dictated and finalized at location A.
--- NOTE | ~2020-12-31 | MR_ITS ---
EXAMINATION: MR lumbar spine wo con DATE: 01/02/2021 11:05 INDICATION: Lower limb weakness TECHNIQUE: Magnetic resonance imaging (MRI) of the lumbar spine was performed without intravenous con trast. Sequences included sagittal T2-weighted FSE, sagittal T2-weighted FS FSE, sagittal T1-weighted FSE, and axial T2-weighted FSE. COMPARISON: Lumbar spine MR dated 02/23/2020, CT chest, abdomen and pelvis dated 05/10/2020 and lumbar spine radiographs dated 09/27/2020 FINDINGS: 10 degrees lumbar dextroscoliosis. Sagittal alignment is normal. Chronic L3 burst fracture with depre ssion of the superior endplate resulting in 50% central vertebral body height loss. Remaining vertebr al body heights are normal. Normal marrow signal. There is also a 2 mm retropulsion of the central as pect of the cephalad posterior wall. Low signal intensity methylmethacrylate consistent with prior at tempted vertebroplasty, a small portion of which is in the anterior aspect of the vertebral body and the majority of which has extravasated into the inferior aspect of the L2-L3 disc space. There is dis c desiccation throughout the lumbar spine. Mild disc height loss at L2-L3 and L3-L4. There are annula r fissures at L2-L3 through L5-S1. Bilateral T2 hyperintense renal cysts. Woods's disease with dege nerative change at the contacting the superior and inferior margins of the spinous processes. The con us medullaris terminates at L1. There is normal signal in the caudal spinal cord. Paravertebral soft tissues are unremarkable. The following disc levels are specifically discussed: T12-L1: The disc does not extend beyond the endplate margin. There is moderate bilateral facet joint osteoarthritis. There is no neural foraminal stenosis. There is no central canal stenosis. L1-L2: Disc is mildly bulging. There is severe bilateral facet joint osteoarthritis. There is mild bi lateral neural foraminal stenosis. There is mild central canal stenosis. L2-L3: Disc is mildly bulging with superimposed left paracentral to foraminal zone disc extrusion wit h disc material extending couple millimeters cephalad and caudal to the level of the endplates. There is hypertrophy of the ligamentum flavum. There is severe bilateral facet joint osteoarthritis. There is mild right and mild to moderate left neural foraminal stenosis. There is mild central canal steno sis along with narrowing at the left lateral recess. L3-L4: Broad-based disc extrusion extending from foraminal zone to foraminal zone with disc material extending a few millimeters cephalad and caudal to the level of the endplates. There is hypertrophy o f the ligamentum flavum. There is severe bilateral facet joint osteoarthritis. There is mild to moder ate bilateral neural foraminal stenosis. There is moderate central canal stenosis with narrowing of t he left and right lateral recesses. L4-L5: Disc is bulging. There is hypertrophy of the ligamentum flavum. There is severe bilateral face t joint osteoarthritis. There is mild left and mild to moderate right neural foraminal stenosis. Ther e is mild central canal stenosis. There is narrowing of the lateral recesses, right greater than left . L5-S1: Broad-based disc extrusion extending from foraminal zone to foraminal zone with disc material extending a few millimeters cephalad and caudal to the level of the endplates. There is hypertrophy o f the ligamentum flavum. There is severe bilateral facet joint osteoarthritis. There is mild left and moderate right neural foraminal stenosis. There is mild central canal stenosis along with narrowing of the right lateral recess. IMPRESSION: 1. Mild lumbar dextroscoliosis with interval progression of moderate spondylosis. Reviewed, dictated and finalized at location A. IMP
--- NOTE | 2020-12-31 10:17 | ECG_ITS ---
Measurements Intervals [place] Rate: 80 P: ID: 0 QRS: -33 QRSD: 96 T: -33 QT: 386 QTc: 447 Interpretive Statements SINUS RHYTHM ATRIAL COUPLET, ATRIAL AND VENTRICULAR PREMATURE COMPLEXES LEFT AXIS DEVIATION VOLTAGE CRITERIA FOR LVH BORDERLINE T WAVE ABNORMALITY- INFERIOR LEADS BASELINE ARTIFACT- II, III, AVR, AVF, V1-V6 ABNORMAL ECG Electronically Signed On 12-31-2020 12:25:20 CDT by Aldo Linton D.O.
[2020-12-31 10:58] LABS: Basophils Absolute Auto 0.1 K/mm3 (0.0-0.1); Basophils Percent Auto 0.4 % (0.2-1.2); Eosinophils Percent Auto 0.1 % (0-4.4); Hematocrit 39.9 % (42.0-52.0); Hemoglobin 13.1 g/dL (14.0-18.0); Immature Granulocyte Absolute 0.07 K/mm3 (0.00-0.031); Immature Granulocyte Percent A 0.6 % (0-0.5); Lymphocytes Absolute Auto 0.84 K/mm3 (0.9-3.2); Lymphocytes Percent Auto 6.7 % (18.3-44.2); Mean Corpuscular HGB Conc 32.8 g/dl (32-36); Mean Corpuscular Hemoglobin 32.2 pg (26-34); Mean Platelet Volume 10.1 fl (7.4-10.4); Monocytes Percent Auto 15.7 % (2.6-8.5); Neutrophils Absolute Auto 9.6 K/mm3 (1.3-6.7); Neutrophils Percent Auto 76.5 % (45.5-73.1); Platelet Count Result 283 k/mm3 (150-375); Red Blood Count 4.07 M/mm3 (4.6-6.20); White Blood Count 12.6 K/mm3 (4.5-10.0)
[2020-12-31 11:04] LABS: Add Urine Microscopic? YES; Appearance Urine Clear (Clear); Bilirubin Urine 1+ (Negative); Blood Urine Negative (Negative); Color Urine Amber (Yellow); Glucose Urine UA Negative (Negative); Ketones Urine Negative (Negative); Leukocyte Esterase Ur Negative LEU/UL (Negative); Mucus Urine Heavy /lpf; Nitrate Urine Negative (Negative); Protein Urine 2+ mg/dL (Negative); RBC Urine 0-2 /hpf (0-2); Squamous Epithelial Cell Urine Rare /hpf (Few); WBC Urine 0-3 /hpf
[2020-12-31 11:08] LABS: Alanine Aminotransferase 8 U/L (4-50); Albumin Level 3.4 g/dL (3.5-5.1); Alkaline Phosphatase 78 U/L (38-126); Anion Gap 6 mmol/L (8-16); Aspartate Amino Transferase 17 U/L (17-59); Blood Urea Nitrogen 10 mg/dL (9-20); Calcium 9.5 mg/dL (8.4-10.2); Carbon Dioxide 28 mmol/L (22-30); Chloride 103 mmol/L (98-107); Estimated CRCL calculation 61 ml/min; Estimated Glomerular Filt Rate > 60; Glucose 109 mg/dL (75-110); Potassium 3.4 mmol/L (3.4-5.0); Sodium 137 mmol/L (137-145)
--- NOTE | 2020-12-31 11:50 | ED.GENADULT ---
HPI - General Adult General Chief complaint: Weakness Stated complaint: weakness Time Seen by Provider: 12/31/20 10:40 Source: patient History of Present Illness HPI narrative: Patient is a 80 y/o male complaining of mild to moderate right leg weakness for last 3 days. He state that he has been having difficulty walking due to right leg weakness. There is no known alleviating or exacerbating factor. He also has some left knee pain and right foot pain. Related Data Home Medications Medication Instructions Recorded Confirmed aspirin 81 mg tablet,delayed 81 mg PO DAILY 06/04/19 12/08/20 release carvedilol 3.125 mg tablet 3.125 mg PO DAILY 06/04/19 12/08/20 spironolactone 25 mg tablet 25 mg PO DAILY 06/04/19 12/08/20 lisinopril 2.5 mg tablet 2.5 mg PO DAILY 10/06/19 12/08/20 citalopram 12/31/20 Allergies Allergy/AdvReac Type Severity Reaction Status Date / Time No Known Allergies Allergy Verified 12/31/20 15:44 Review of Systems Constitutional: Constitutional: Denies chills, Denies fever(s), Denies headache(s) and Reports weakness Eyes: Eyes: Denies blurry vision ENT: Denies headache(s) and Denies neck pain Cardiovascular: Cardiovascular: Denies chest pain and Denies dyspnea Respiratory: Respiratory: Denies cough and Denies dyspnea Gastrointestinal: Gastrointestinal: Denies abdominal pain, Denies diarrhea, Denies nausea and Denies vomiting Genitourinary: Genitourinary: Denies hematuria and Denies dysuria Musculoskeletal: Musculoskeletal: Denies back pain, Reports arthralgias (left knee pain) and Denies neck pain Neurologic: Denies headache(s), Reports focal weakness (right leg weakness) and Reports weakness PMFSH Past Medical History Medical History AB (asthmatic bronchitis) Anemia ASHD (arteriosclerotic heart disease) BMI 21.0-21.9, adult BMI 22.0-22.9, adult BMI 23.0-23.9, adult BMI 24.0-24.9, adult Bradycardia Bronchitis CAD (coronary artery disease) Chronic low back pain Cognitive dysfunction Debility Depressed mood Elevated homocysteine Encounter for Medicare annual wellness exam Encounter for routine adult health examination without abnormal findings Fall Follow up GERD (gastroesophageal reflux disease) Hearing loss History of hemochromatosis Hyperlipidemia Illness Impaired functional mobility, balance, gait, and endurance Multiple joint pain On retirement drug therapy Parotiditis Pulmonary granuloma Sore throat Unexplained weight loss URI (upper respiratory infection) Ventricular bigeminy Surgical History Surgical History History of colon resection S/P AVR (aortic valve replacement) Family History Family History Sibling Hypertension Family history of malignant neoplasm of bone Father Family history of emphysema Family history of tuberculosis Family history of malignant neoplasm Mother Hypertension Family history of Parkinson's disease Social History Social History Smoking status: Never smoker Alcohol intake: never Substance use: never Gender identity (if verbalized by the patient): Male Spiritual care concerns: No Exam Const: General: no acute distress and well developed Orientation/consciousness: oriented to person and oriented to place HENMT: Head: normocephalic Ears: external ears normal General nose exam: Normal external nose present Eyes: General: appearance normal, both eyes and all related structures Conjunctivae: conjunctivae normal Neck: Neck: normal visual inspection and full ROM Chest: Chest palpation & inspection: normal inspection of the chest and no tenderness Resp: Effort & Inspection: normal respiratory effort Auscultation: clear to auscultation bilaterally Cardio: Rate: regular rate Rhythm: regular rhythm GI:
--- NOTE | 2020-12-31 12:31 | PC.NURSE ---
called lab talked to Ellie elise on a Uric at [id number]
[2020-12-31 13:14] LABS: Uric Acid 5.5 mg/dL (3.5-8.5)
--- NOTE | 2020-12-31 16:28 | PC.NURSE ---
This patient, Marcel Awad, was admitted to 3 [facility] Surg Room 322-01. Patient/family oriented to hospital policies and general routines including ID bracelet, bed and alarms, visiting hours, pain management, procedures, bathroom and other care routines, personal items, smoking policy, room service/diet, and visiting hours. Report received from Madalyn JUAN Information on how to activate the Rapid Response Team has been discussed. Patient/Family are encouraged to report perceived risks to care and to ask questions if they do not understand what they are told or what they should do.
--- NOTE | 2020-12-31 20:25 | PM.IMHP ---
H&P: HPI History of Present Illness Date/Time: 12/31/20 20:25 this is a 80-year-old male patient who came in complaining of right leg weakness for the last 3 days. However after reviewing his records the patient was seen in the office by Dr. baeza on 12/08/2020 for complaints of weakness he is complaining of shoulder, elbows, hips, and knees. Was some achiness. The patient has been through physical therapy, with the patient doing home physical therapy on his own as well. He also has a history of bradycardia according to his physician's notes. The patient was complaining of some tenderness on the plantar surface of the right foot. When I palpated the area. He also complained some right knee pain. Patient has a history of having some gait instability. The patient also stated that she was told that he has arthritis in his right knee. Patient has psoriasis on the right knee perhaps he has psoriatic arthritis. The patient's foot x-ray today showed no acute osseous abnormality. Head CT was read as no acute intracranial abnormality. Age-related findings. Chest x-ray was read as no acute cardiopulmonary abnormalities. No medications were given in the ER. Patient does not complain of any back pain. To do straight leg raises without difficulty on both legs. His no speech difficulty. He has no focal weakness. The patient does have some short-term memory issues but no other neurological symptoms are noted. The patient has a buttocks alarm on and is constantly trying to get out of bed. The patient is agitated that he needed to stay in the hospital overnight. The patient stated that he wants to go home as soon as possible tomorrow. He would like to be released after he is evaluated by physical therapy tomorrow. Patient's white counts 12.6. His H&H is 13.1 and 39.9 which is his baseline. The patient was admitted to observation status on the date of service of 12/31/2020 Chief Complaint: Right leg weakness Review of Systems Review of Systems: All systems reviewed & are unremarkable except as noted in HPI and below Constitutional: Constitutional: Reports as per HPI and Reports no additional constitutional complaints Eyes: Eyes: Reports as per HPI and Reports no additional eye complaints ENT: Reports system reviewed and no additional complaints, except as documented and Reports Normal hearing present Cardiovascular: Cardiovascular: Reports no additional cardiovascular complaints Respiratory: Respiratory: Reports no additional respiratory complaints and Reports no additional respiratory complaints Gastrointestinal: Gastrointestinal: Reports as per HPI and Reports no additional gastrointestinal complaints Musculoskeletal: Musculoskeletal: Reports no additional musculoskeletal complaints Integumentary/Breasts: Skin/Breast: Reports system reviewed and no additional complaints, except as docu and Reports as per HPI Neurologic: Reports system reviewed and no additional complaints, except as documented, Reports as per HPI and Reports Normal hearing present Psychiatric: Psychiatric: Reports no additional psychiatric complaints and Reports as per HPI Endocrine: Endocrine: Reports no additional endocrine complaints Hematologic/Lymphatic: Hematologic/Lymphatic: Reports no additional hematologic/lymphatic complaints Allergic/Immunologic: Allergic/Immunologic: Reports no additional allergic/immunologic complaints [facility] Past Medical History Medical History (Updated 12/31/20 @ 20:55 by Peyton Biggs NP) AB (asthmatic bronchitis) Anemia ASHD (arteriosclerotic heart disease) BMI 21.0-21.9, adult Bradycardia Bronchitis CAD (coronary artery disease) Chronic low back pain Cognitive dysfunction Debility Depressed mood Elevated homocysteine Fall Follow up GERD (gastroesophageal reflux disease) Hearing loss History of hemochromatosis HTN (hypertension), malignant Hyperlipidemia Illness Impaired functional mobility, balance, gait, and enduranc
[2020-12-31] MEDS: DULoxetine HCL 20 MG CAPSULE.DR PO (21:37)
[2020-12-31] MEDS: carvediloL 3.125 MG TABLET PO (21:37)
[2020-12-31] MEDS: PANTOPRAZOLE 40 MG TABLET PO (21:38)
[2020-12-31] MEDS: OLANZapine 10 MG INJ VIAL 5 MG IM (21:49)
[2021-01-01] VITALS (8 sets, daily range): BP systolic 116–118; BP diastolic 69–89; PULSE 51–109; RESP 16–18; TEMP 34.5–36.7; O2SAT 92–100
[2021-01-01 06:23] LABS: Basophils Absolute Auto 0.1 K/mm3 (0.0-0.1); Basophils Percent Auto 0.4 % (0.2-1.2); Eosinophils Percent Auto 0.1 % (0-4.4); Hematocrit 38.7 % (42.0-52.0); Immature Granulocyte Absolute 0.09 K/mm3 (0.00-0.031); Immature Granulocyte Percent A 0.6 % (0-0.5); Lymphocytes Absolute Auto 0.95 K/mm3 (0.9-3.2); Lymphocytes Percent Auto 6.9 % (18.3-44.2); Mean Corpuscular HGB Conc 33.6 g/dl (32-36); Mean Corpuscular Hemoglobin 32.3 pg (26-34); Mean Platelet Volume 10.6 fl (7.4-10.4); Monocytes Absolute Auto 2.1 K/mm3 (0.1-0.6); Monocytes Percent Auto 14.9 % (2.6-8.5); Neutrophils Absolute Auto 10.7 K/mm3 (1.3-6.7); Neutrophils Percent Auto 77.1 % (45.5-73.1); Platelet Count Result 272 k/mm3 (150-375); Red Blood Count 4.03 M/mm3 (4.6-6.20); Red Cell Distribution Width 12.1 % (11.5-14.5); White Blood Count 13.9 K/mm3 (4.5-10.0)
[2021-01-01 06:43] LABS: Alanine Aminotransferase 8 U/L (4-50); Albumin Level 3.3 g/dL (3.5-5.1); Alkaline Phosphatase 76 U/L (38-126); Anion Gap 7 mmol/L (8-16); Aspartate Amino Transferase 17 U/L (17-59); Bilirubin,Total 1.9 mg/dL (0.2-1.3); Blood Urea Nitrogen 12 mg/dL (9-20); Calcium 9.6 mg/dL (8.4-10.2); Carbon Dioxide 24 mmol/L (22-30); Chloride 106 mmol/L (98-107); Estimated CRCL calculation 58 ml/min; Estimated Glomerular Filt Rate > 60; Glucose 105 mg/dL (75-110); Magnesium 0.8 mg/dL (1.6-2.3); Potassium 3.6 mmol/L (3.4-5.0); Sodium 137 mmol/L (137-145)
[2021-01-01 06:46] LABS: CRP 14.9 mg/dL (<1.0)
--- NOTE | 2021-01-01 07:14 | PC.NURSE ---
Patient made multiple attempts to get out of bed through the night. He was pleasantly confused and redirect-able most of the time though he got up about every 5-15 minutes while awake. He pulled out his IV at 0030, setting it on his tray table. A one time order of Zyprexa was given with good results, patient appeared to be laying calmly about 30 minutes after med was received and appeared to be sleeping from approximately 0045 until 0730.
[2021-01-01 07:25] LABS: Erythrocyte Sedimentation Rate 118 mm/hr (0-20)
[2021-01-01 07:40] LABS: Thyroid Stimulating Hormone Reflex 0.666 uIU/mL (0.465-4.68)
[2021-01-01] MEDS: DONEPEZIL HCL 10 MG TABLET PO (09:49)
[2021-01-01] MEDS: PANTOPRAZOLE 40 MG TABLET PO ×2 (09:49→21:33)
[2021-01-01] MEDS: CITALOPRAM HYDROBROMIDE 20 MG TABLET PO (09:49)
[2021-01-01] MEDS: carvediloL 3.125 MG TABLET PO ×2 (09:49→21:33)
[2021-01-01] MEDS: SPIRONOLACTONE 25 MG TABLET PO (09:49)
[2021-01-01] MEDS: lisinopriL 2.5 MG TABLET PO (09:50)
[2021-01-01] MEDS: ASPIRIN 81 MG ENTERIC TABLET PO (09:50)
[2021-01-01] MEDS: ATORVASTATIN 40 MG TABLET PO (09:50)
[2021-01-01] MEDS: FOLIC ACID 1 MG TABLET PO (09:50)
--- NOTE | 2021-01-01 10:01 | ECG_ITS ---
Measurements Intervals [place] Rate: 114 P: DE: 0 QRS: -24 QRSD: 91 T: 79 QT: 328 QTc: 453 Interpretive Statements SINUS OR ECTOPIC ATRIAL TACHYCARDIA FREQUENT ATRIAL PREMATURE COMPLEXES AND VENTRICULAR PREMATURE COMPLEXES DELAYED PRECORDIAL R/S TRANSITION LEFT VENTRICULAR HYPERTROPHY WITH ST-T CHANGE BASELINE ARTIFACT- II, III, AVF ABNORMAL ECG Electronically Signed On 01-01-2021 12:25:37 CDT by Aldo Linton D.O.
[2021-01-01] MEDS: MAGNESIUM SULF 4 GM/WATER100ML 4 GM/100 ML BAG IVPB (11:50)
[2021-01-01] MEDS: predniSONE 20 MG TABLET 40 MG PO (11:55)
[2021-01-01] MEDS: POTASSIUM CHLORIDE 20 MEQ TABLET PO (11:58)
--- NOTE | 2021-01-01 16:00 | PM.IMHP ---
H&P: HPI History of Present Illness Date/Time: 01/01/21 16:00 Chief Complaint: Right knee pain weakness Narrative: 80-year-old male admitted to the hospital with right lower extremity weakness. Orthopedic consult requested for right knee pain. Patient is somewhat of a poor historian however he reports chronic right knee pain and right foot pain. He denies new injuries. Per his medical record, he has been seeing his primary care physician with multiple reports of muscle weakness and joint pain and was diagnosed with poly myalgia rheumatica. He has been treated with steroid dose packs in the past. He also has undergone a course of formal physical therapy with improvement in strength in the upper and lower extremities. He also sees [facility] for chronic lumbar spine pain and pain management. Radiographs obtained of the right knee reveal a suprapatellar moderate joint effusion, diffuse osteopenia, chondrocalcinosis and osteoarthritis of medial and patellofemoral compartments. No fracture or dislocation, periosteal reaction or bone destruction. Orthopedic consult requested by hospitalist service. Review of Systems Constitutional: Constitutional: Reports no additional constitutional complaints, Denies excessive sweating, Denies fever(s) and Denies weight gain Eyes: Eyes: Reports no additional eye complaints and Denies change in vision ENT: Reports system reviewed and no additional complaints, except as documented and Reports Normal hearing present Cardiovascular: Cardiovascular: Denies chest pain, Denies diaphoresis, Denies leg ulcers and Denies dyspnea on exertion Respiratory: Respiratory: Reports no additional respiratory complaints, Denies cough and Denies dyspnea on exertion Gastrointestinal: Gastrointestinal: Reports no additional gastrointestinal complaints, Denies abdominal pain, Denies constipation, Denies nausea and Denies vomiting Genitourinary: Genitourinary: Reports no additional male genitourinary complaints, Denies hematuria and Denies urinary frequency Musculoskeletal: Musculoskeletal: Reports as per HPI, Reports arthralgias and Reports muscle weakness Integumentary/Breasts: Skin/Breast: Reports change in pigmentation ( anterior knee) Neurologic: Reports Normal hearing present Psychiatric: Psychiatric: Reports memory loss and Reports other ( some dementia) Endocrine: Endocrine: Reports no additional endocrine complaints, Denies change in body appearance, Denies excessive sweating, Denies polyphagia, Denies polydipsia and Denies polyuria [facility] Past Medical History Medical History (Updated 01/01/21 @ 16:15 by PORTER Shirley) AB (asthmatic bronchitis) Anemia ASHD (arteriosclerotic heart disease) BMI 21.0-21.9, adult Bradycardia Bronchitis CAD (coronary artery disease) Chronic low back pain Cognitive dysfunction Debility Depressed mood Effusion, right knee Elevated homocysteine Fall Follow up GERD (gastroesophageal reflux disease) Hearing loss History of hemochromatosis HTN (hypertension), malignant Hyperlipidemia Illness Impaired functional mobility, balance, gait, and endurance Multiple joint pain Plantar fasciitis Pulmonary granuloma Unexplained weight loss URI (upper respiratory infection) Ventricular bigeminy Surgical History Surgical History History of colon resection S/P AVR (aortic valve replacement) Family History Family History Sibling Hypertension Family history of malignant neoplasm of bone Father Family history of emphysema Family history of tuberculosis Family history of malignant neoplasm Mother Hypertension Family history of Parkinson's disease Social History Social History (Updated 01/01/21 @ 16:07 by PORTER Shirley) Social History: The patient stated that he is and has 2 children. The patient stated that he is a full code. And he has a male friend
--- NOTE | 2021-01-01 19:17 | PM.IMPN ---
Progress Note: A&P Assessment and Plan (1) Right leg weakness: Code(s): R29.898 - Other symptoms and signs involving the musculoskeletal system Status: Acute Assessment and Plan: Pt has swelling to the right knee with pain and resistence on flexion and extension -He does have a birthmark on his right knee that is unchanged according to the girlfriend and does not represent inflammatory or infection process. -ESR and CRP elevated. Concerning with joint effusion and weakness. Recommend tap. No other sings of infection (UA and CXR okay). No fevers. -Ortho consulted -Continue steroids for possible PMR -Continue PT/OT -Stroke less likely but given his quick decline, will check brain and lumbar spine MRI. Pt has a biosprostetic valvue. Mag also replaced. (2) Impaired functional mobility, balance, gait, and endurance: Code(s): Z74.09 - Other reduced mobility Status: Acute Assessment and Plan: PT and OT evaluation (3) Anemia: Code(s): D64.9 - Anemia, unspecified Status: Acute Assessment and Plan: Patient is at his baseline. No sings of bleeding (4) PMR (polymyalgia rheumatica): Code(s): M35.3 - Polymyalgia rheumatica Status: Acute Assessment and Plan: Spoke with Dr. Childs who states he has a hx of this and was off steroids and had a normal CRP and ESR at that time -Continue steroids (5) Depressed mood: Code(s): R45.89 - Other symptoms and signs involving emotional state Status: Acute Assessment and Plan: Continue with his Celexa. -no signs or symptoms of acute issues (6) Hyperlipidemia: Qualifiers: Hyperlipidemia type: mixed hyperlipidemia Qualified Code(s): E78.2 - Mixed hyperlipidemia Code(s): E78.5 - Hyperlipidemia, unspecified Status: Acute Assessment and Plan: Continue with atorvastatin -check CK in the AM (7) HTN (hypertension), malignant: Code(s): I10 - Essential (primary) hypertension Status: Chronic Assessment and Plan: Last bp 118/69 -Continue with current medications . Time Spent With Patient Time with patient: 25 - 35 minutes Subjective Date/time seen: 01/01/21 19:17 Interval history: Pt is a 80 y/o male here for weakness. Pt was seen today with his girlfriend by his side. She states prior to 3 days ago the patient was up walking around doing yard work without issue. Since about a few days ago, the pt has been having trouble getting around and needed assistance by his girlfriend to do any walking. Pt states he originally had left knee pain and swelling but now the right one hurts more. He thinks it is more swollen and the erythema to his knee is a birthmark and it is unchanged. She denies dysuria, abdominal pain, nausea, vomiting, fevers, chills CP or SOB. He has no numbness or tingling to any one part of his body. GF reports no changes in symmetry or slurred speech. Review of Systems Review of Systems: All systems reviewed & are unremarkable except as noted in HPI and below Exam Narrative: Exam Narrative: General: Well developed well nourished patient in NAD HEENT: normocephalic Neck: supple Neuro: Alert and oriented x4. CN 2-12 intact. Strength 5/5 in UE and LE. no neurological deficits CV:RRR with slight murmur Resp:CTA Abd: Soft, non distended. No pain to palpation. Positive bowel sounds Extremities: Right knee with birthmark but somem swelling. He had pain and rigidity with flexion and extension of the knee. Left knee had more smooth movement with no problems with flexion or extension. pulses intact. no signs of DVT Objective Data Vital Signs Vital Signs: Vital Signs - 24 hr 12/31/20 21:37 12/31/20 22:00 01/01/21 06:00 Temperature 98.7 F 97.9 F Pulse Rate 97 78 51 L Respiratory Rate 16 16 Blood Pressure 135/77 116/84 Pulse Oximetry 99 93 01/01/21 08:00 01/01/21 09:49 01/01/21 11:58 Temperature
[2021-01-01] MEDS: MELATONIN 5 MG TABLET PO (21:33)
[2021-01-01] MEDS: DULoxetine HCL 20 MG CAPSULE.DR PO (21:33)
[2021-01-01 22:55] LABS: Glucose Point of Care 138 mg/dl (65-105)
[2021-01-02] VITALS (10 sets, daily range): BP systolic 114–122; BP diastolic 84–90; PULSE 51–89; RESP 18–20; TEMP 35.9–36.7; O2SAT 95–100
[2021-01-02 06:40] LABS: Anion Gap 5 mmol/L (8-16); Blood Urea Nitrogen 19 mg/dL (9-20); Calcium 9.8 mg/dL (8.4-10.2); Carbon Dioxide 29 mmol/L (22-30); Chloride 105 mmol/L (98-107); Estimated CRCL calculation 48 ml/min; Estimated Glomerular Filt Rate > 60; Glucose 127 mg/dL (75-110); Magnesium 1.7 mg/dL (1.6-2.3); Potassium 4.6 mmol/L (3.4-5.0); Sodium 139 mmol/L (137-145)
[2021-01-02 06:43] LABS: Hematocrit 39.4 % (42.0-52.0); Hemoglobin 13.4 g/dL (14.0-18.0); Mean Corpuscular Hemoglobin 32.8 pg (26-34); Mean Corpuscular Volume 96.3 fl (80-100); Mean Platelet Volume 10.9 fl (7.4-10.4); Platelet Count Result 297 k/mm3 (150-375); Red Blood Count 4.09 M/mm3 (4.6-6.20); Red Cell Distribution Width 11.9 % (11.5-14.5)
[2021-01-02 06:44] LABS: Creatine Kinase 34 U/L (55-170)
[2021-01-02] MEDS: lisinopriL 2.5 MG TABLET PO (08:17)
[2021-01-02] MEDS: CITALOPRAM HYDROBROMIDE 20 MG TABLET PO (08:17)
[2021-01-02] MEDS: DONEPEZIL HCL 10 MG TABLET PO (08:17)
[2021-01-02] MEDS: FOLIC ACID 1 MG TABLET PO (08:17)
[2021-01-02] MEDS: ATORVASTATIN 40 MG TABLET PO (08:17)
[2021-01-02] MEDS: SPIRONOLACTONE 25 MG TABLET PO (08:17)
[2021-01-02] MEDS: PANTOPRAZOLE 40 MG TABLET PO ×2 (08:17→22:27)
[2021-01-02] MEDS: ASPIRIN 81 MG ENTERIC TABLET PO (08:17)
[2021-01-02] MEDS: carvediloL 3.125 MG TABLET PO ×2 (08:18→22:26)
--- NOTE | 2021-01-02 10:01 | PM.PNORT ---
Progress Note: A&P Assessment and Plan (1) Effusion, right knee: Code(s): M25.461 - Effusion, right knee Status: Acute Assessment and Plan: Re-evaluation of right knee pain performed today at the bedside. Patient continues to have difficulty with flexion extension of the right knee due to a moderate knee joint effusion. Previous radiographs reveal moderate to severe DJD. Patient reports improvement in pain from yesterday. Recommended proceeding with aspiration of the right knee today under sterile conditions. 35 mL of serosanguineous fluid aspirated from the right knee. No injection performed. Synovial fluid sent for a robotic and anaerobic culture, Gram stain, cell count, protein, crystals. Right knee without redness, warmth. Anterior rash now reported to be a chronic birthmark. Patient may continue to be weight-bearing as tolerated of the right lower extremity. Continue PT and OT. Ice recommended to the knee for pain control. (2) Degenerative joint disease of knee: Qualifiers: Osteoarthritis type: primary Laterality: right Qualified Code(s): M17.11 - Unilateral primary osteoarthritis, right knee Code(s): M17.10 - Unilateral primary osteoarthritis, unspecified knee Status: Acute Assessment and Plan: Pending synovial fluid culture results, patient may benefit from a cortisone injection to the right knee for moderate to severe right knee DJD. Aspiration performed today, see above. We will await results prior to determining further conservative treatment plan. Subjective Subjective Date/Time Seen: 01/02/21 10:01 Interval history: Patient with continued complaints of right knee pain. Mild improvement from last night. He is sitting up in the chair eating breakfast at the time of exam. No new concerns. Anxious to be discharged home. Review of Systems Constitutional: Constitutional: Reports no additional constitutional complaints, Denies excessive sweating, Denies fever(s) and Denies weight gain Eyes: Eyes: Reports no additional eye complaints and Denies change in vision ENT: Reports system reviewed and no additional complaints, except as documented and Reports Normal hearing present Cardiovascular: Cardiovascular: Denies chest pain, Denies diaphoresis, Denies leg ulcers and Denies dyspnea on exertion Respiratory: Respiratory: Reports no additional respiratory complaints, Denies cough and Denies dyspnea on exertion Gastrointestinal: Gastrointestinal: Reports no additional gastrointestinal complaints, Denies abdominal pain, Denies constipation, Denies nausea and Denies vomiting Genitourinary: Genitourinary: Reports no additional male genitourinary complaints, Denies hematuria and Denies urinary frequency Musculoskeletal: Musculoskeletal: Reports as per HPI, Reports arthralgias and Reports muscle weakness Integumentary/Breasts: Skin/Breast: Reports change in pigmentation ( anterior knee) Neurologic: Reports Normal hearing present Psychiatric: Psychiatric: Reports memory loss and Reports other ( some dementia) Endocrine: Endocrine: Reports no additional endocrine complaints, Denies change in body appearance, Denies excessive sweating, Denies polyphagia, Denies polydipsia and Denies polyuria Exam Const: General: cooperative and comfortable Nutritional Appearance: average body habitus Orientation/consciousness: patient oriented x3 Limitations: no limitations HENMT: Head: normal to inspection Ears: hearing grossly normal bilaterally General nose exam: Normal external nose present Face and sinus: normal facial exam Mouth: Yes moist mucous membranes Teeth and gingiva: dentition normal Eyes: General: appearance normal, both eyes and all related structures Pupils: Equal, round and reactive pupils present EOM: EOMs intact bilaterally Neck: Neck: normal visual inspection Chest: Chest palpation & inspection: normal inspection of the chest Resp: Effort & Inspection: galileo
[2021-01-02 11:06] LABS: Appearance Synovial Fluid Cloudy (Clear); Color Synovial Fluid Yellow (Colorless); Source Synovial Fluid Synovial fluid
[2021-01-02 11:08] LABS: Lymphocytes Synovial Fluid 13 %; Macrophages Synovial Fluid 15 %; Neutrophils Synovial Fluid 69 % (0-25); Other Cells Synovial Fluid 3 %
[2021-01-02] MEDS: predniSONE 20 MG TABLET 40 MG PO (11:13)
--- NOTE | 2021-01-02 13:46 | PM.IMPN ---
Progress Note: A&P Assessment and Plan (1) Right leg weakness: Code(s): R29.898 - Other symptoms and signs involving the musculoskeletal system Status: Acute Assessment and Plan: Pt has swelling to the right knee with pain and resistance on flexion and extension -He does have a birthmark on his right knee that is unchanged according to the girlfriend and does not represent inflammatory or infection process. -Joint tap was cloudy with some neutrophils. No organisms on the gram stain. No infection suspected initially but will monitor cx results -No other sings of infection (UA and CXR okay). No fevers. -Ortho consulted and spoke with Anna LAZAR -Continue steroids for PMR since it is improving -Continue PT/OT -MRI of lumbar spine and brain without acute pathology (2) Impaired functional mobility, balance, gait, and endurance: Code(s): Z74.09 - Other reduced mobility Status: Acute Assessment and Plan: PT and OT evaluation (3) Anemia: Code(s): D64.9 - Anemia, unspecified Status: Acute Assessment and Plan: Patient is at his baseline. No sings of bleeding (4) PMR (polymyalgia rheumatica): Code(s): M35.3 - Polymyalgia rheumatica Status: Acute Assessment and Plan: Spoke with Dr. Childs who states he has a hx of this and was off steroids and had a normal CRP and ESR at that time -Continue steroids (5) Depressed mood: Code(s): R45.89 - Other symptoms and signs involving emotional state Status: Acute Assessment and Plan: Continue with his Celexa. -no signs or symptoms of acute issues (6) Hyperlipidemia: Qualifiers: Hyperlipidemia type: mixed hyperlipidemia Qualified Code(s): E78.2 - Mixed hyperlipidemia Code(s): E78.5 - Hyperlipidemia, unspecified Status: Acute Assessment and Plan: Continue with atorvastatin -CK normal (7) HTN (hypertension), malignant: Code(s): I10 - Essential (primary) hypertension Status: Chronic Assessment and Plan: Last bp 122/90 -Continue with coreg, linsiopril and spironolactone . Subjective Date/time seen: 01/02/21 13:46 Interval history: Pt is a 80 y/o male here for weakness. Pt was seen today with his girlfriend by his side. He is doing much better today compared to yesterday. He has been up with PT and feels stronger today. He is still having some pain in the right knee. Pt denies nausea, vomiting, fevers, chills, constipation, diarrhea, chest pain, sob, or abdominal pain. Exam Narrative: Exam Narrative: General: Well developed well nourished patient in NAD HEENT: normocephalic Neck: supple Neuro: Alert and oriented x4. CN 2-12 intact. Strength 5/5 in UE and LE. no neurological deficits CV:RRR with slight murmur Resp:CTA Abd: Soft, non distended. No pain to palpation. Positive bowel sounds Extremities: Right knee with birthmark but some swelling. He had pain and rigidity with flexion and extension of the knee. Left knee had more smooth movement with no problems with flexion or extension. pulses intact. no signs of DVT Objective Data Vital Signs Vital Signs: Vital Signs - 24 hr 01/01/21 14:00 01/01/21 16:00 01/01/21 20:00 Temperature 98.1 F Pulse Rate 53 L 72 69 Respiratory Rate 16 Blood Pressure 118/69 Pulse Oximetry 100 01/01/21 22:00 01/02/21 00:00 01/02/21 04:00 Temperature 94.1 F L Pulse Rate 69 62 67 Respiratory Rate 18 Blood Pressure 117/89 Pulse Oximetry 94 01/02/21 06:00 01/02/21 08:18 Temperature 96.7 F L Pulse Rate 89 79 Respiratory Rate 20 Blood Pressure 122/90 Pulse Oximetry 95 Intake/Output Intake/Output: Intake & Output 12/30/20 12/31/20 01/01/21 01/02/21 23:59 23:59 23:59 23:59 Intake Total 390 1250 240 Output Total 150 0 Balance 390 1100 240 Meds/Results Medications: Active Medications Generic Name Dose Route Start Last Ad
[2021-01-02] MEDS: DULoxetine HCL 20 MG CAPSULE.DR PO (22:27)
[2021-01-02] MEDS: MELATONIN 5 MG TABLET PO (22:27)
[2021-01-03 06:00] VITALS: BP 156/92; PULSE 73; RESP 18; TEMP 36.4; O2SAT 100
[2021-01-03 06:21] LABS: Basophils Percent Auto 0.1 % (0.2-1.2); Eosinophils Percent Auto 0.1 % (0-4.4); Hematocrit 40.8 % (42.0-52.0); Hemoglobin 13.6 g/dL (14.0-18.0); Immature Granulocyte Absolute 0.09 K/mm3 (0.00-0.031); Immature Granulocyte Percent A 0.6 % (0-0.5); Lymphocytes Absolute Auto 1.02 K/mm3 (0.9-3.2); Lymphocytes Percent Auto 6.8 % (18.3-44.2); Mean Corpuscular HGB Conc 33.3 g/dl (32-36); Mean Corpuscular Hemoglobin 32.5 pg (26-34); Mean Corpuscular Volume 97.4 fl (80-100); Mean Platelet Volume 10.6 fl (7.4-10.4); Monocytes Absolute Auto 1.2 K/mm3 (0.1-0.6); Monocytes Percent Auto 7.8 % (2.6-8.5); Neutrophils Absolute Auto 12.7 K/mm3 (1.3-6.7); Neutrophils Percent Auto 84.6 % (45.5-73.1); Platelet Count Result 352 k/mm3 (150-375); Red Blood Count 4.19 M/mm3 (4.6-6.20)
[2021-01-03 06:39] LABS: Anion Gap 7 mmol/L (8-16); Blood Urea Nitrogen 23 mg/dL (9-20); CRP 4.3 mg/dL (<1.0); Calcium 10.3 mg/dL (8.4-10.2); Carbon Dioxide 28 mmol/L (22-30); Chloride 102 mmol/L (98-107); Estimated CRCL calculation 53 ml/min; Estimated Glomerular Filt Rate > 60; Glucose 113 mg/dL (75-110); Magnesium 1.4 mg/dL (1.6-2.3); Potassium 4.1 mmol/L (3.4-5.0); Sodium 137 mmol/L (137-145)
--- NOTE | 2021-01-03 08:09 | PM.IMPN ---
Progress Note: A&P Assessment and Plan (1) Effusion, right knee: Code(s): M25.461 - Effusion, right knee Status: Acute Assessment and Plan: -Xray showing moderate joint effusion that was aspirated 01/02/21 showing yellow cloudy fluid with 69% neutrophils -Gram stain neg for organisms but shows WBC -infx initially seemed unlikely (no erythema or warmth) -Pt became confused today and leukocytosis worsening (could be due to steroids). -Will cover with ceftriaxone and vanc for the meantime while we let the Cx grow. Obtain blood cultures (2) Right leg weakness: Code(s): R29.898 - Other symptoms and signs involving the musculoskeletal system Status: Acute Assessment and Plan: Pt has swelling to the right knee with pain and resistance on flexion and extension -He does have a birthmark on his right knee that is unchanged according to the girlfriend and does not represent inflammatory or infection process. -Joint tap was cloudy with increased neutrophils. No organisms on the gram stain. -No other sings of infection (UA and CXR okay). No fevers. -Ortho consulted and spoke with Anna LAZAR -Continue steroids for PMR since it is improving -Continue PT/OT -MRI of lumbar spine and brain without acute pathology (3) Impaired functional mobility, balance, gait, and endurance: Code(s): Z74.09 - Other reduced mobility Status: Acute Assessment and Plan: PT and OT evaluation (4) Anemia: Code(s): D64.9 - Anemia, unspecified Status: Acute Assessment and Plan: Patient is at his baseline. No sings of bleeding (5) PMR (polymyalgia rheumatica): Code(s): M35.3 - Polymyalgia rheumatica Status: Acute Assessment and Plan: Spoke with Dr. Childs who states he has a hx of this and was off steroids and had a normal CRP and ESR at that time -Continue steroids (6) Depressed mood: Code(s): R45.89 - Other symptoms and signs involving emotional state Status: Acute Assessment and Plan: Continue with his Celexa. -no signs or symptoms of acute issues (7) Hyperlipidemia: Qualifiers: Hyperlipidemia type: mixed hyperlipidemia Qualified Code(s): E78.2 - Mixed hyperlipidemia Code(s): E78.5 - Hyperlipidemia, unspecified Status: Acute Assessment and Plan: Continue with atorvastatin -CK normal (8) HTN (hypertension), malignant: Code(s): I10 - Essential (primary) hypertension Status: Chronic Assessment and Plan: Last bp 156/92 -Continue with coreg, linsiopril and spironolactone . (9) Acute metabolic encephalopathy: Code(s): G93.41 - Metabolic encephalopathy Status: Acute Assessment and Plan: Pt did not sleep overnight and I believe this may be hospital delirum -abx started as stated above while we await culture -No signs of stroke today. MRI 01/02/21 showed no acute stroke -UA and CXR neg on admission and no changes since admission -Monitor Subjective Date/time seen: 01/03/21 08:09 Interval history: Pt is a 80 y/o male here for weakness. Patient was seen today and was very restless and hyper. Patient was constantly looking for his wallet during my exam and I had to redirect him many times. Nursing staff states he did not sleep very well last night. Patient states he is in no pain and wants to go home although he does not even know where he has. He says his knee is feeling better and his range of motion has improved. He denies chest pain, shortness of breath, fevers, chills, nausea, vomiting, diarrhea, constipation, changes in vision, hallucinations or delusions. I spoke with his girlfriend who states that he gets like this at times but not near this bad. She said this is not really like him. He has been on steroids in the past and he she states this did not affect him like this. Exam Narrative: Exam Narrative: General: Well develop
[2021-01-03] MEDS: predniSONE 20 MG TABLET 40 MG PO (09:36)
[2021-01-03 09:37] VITALS: PULSE 73
[2021-01-03] MEDS: DONEPEZIL HCL 10 MG TABLET PO (09:37)
[2021-01-03] MEDS: FOLIC ACID 1 MG TABLET PO (09:37)
[2021-01-03] MEDS: ATORVASTATIN 40 MG TABLET PO (09:37)
[2021-01-03] MEDS: lisinopriL 2.5 MG TABLET PO (09:37)
[2021-01-03] MEDS: carvediloL 3.125 MG TABLET PO ×2 (09:37→23:47)
[2021-01-03] MEDS: SPIRONOLACTONE 25 MG TABLET PO (09:37)
[2021-01-03] MEDS: PANTOPRAZOLE 40 MG TABLET PO (09:37)
[2021-01-03] MEDS: ASPIRIN 81 MG ENTERIC TABLET PO (09:37)
[2021-01-03] MEDS: CITALOPRAM HYDROBROMIDE 20 MG TABLET PO (09:37)
[2021-01-03] MEDS: MAGNESIUM SULF 2 GM/WATER 50ML 2 GM/50 ML BAG IVPB (09:38)
[2021-01-03 14:00] VITALS: BP 124/75; PULSE 59; RESP 18; TEMP 36.7; O2SAT 98
[2021-01-03] MEDS: LORazepam INJ (*CRX) 2 MG/ML VIAL 0.5 MG IV PUSH (15:17)
[2021-01-03 19:37] VITALS: O2SAT 98
[2021-01-03 23:47] VITALS: PULSE 72
[2021-01-03] MEDS: DULoxetine HCL 20 MG CAPSULE.DR PO (23:47)
[2021-01-03] MEDS: QUEtiapine FUMARATE 12.5 MG TABLET PO (23:47)
[2021-01-04 03:00] VITALS: BP 136/95; PULSE 65; RESP 18; TEMP 36.6; O2SAT 100
[2021-01-04 08:12] LABS: Basophils Percent Auto 0.2 % (0.2-1.2); Eosinophils Percent Auto 0.1 % (0-4.4); Hematocrit 39.3 % (42.0-52.0); Hemoglobin 13.2 g/dL (14.0-18.0); Immature Granulocyte Absolute 0.08 K/mm3 (0.00-0.031); Immature Granulocyte Percent A 0.7 % (0-0.5); Lymphocytes Absolute Auto 1.19 K/mm3 (0.9-3.2); Lymphocytes Percent Auto 10.7 % (18.3-44.2); Mean Corpuscular HGB Conc 33.6 g/dl (32-36); Mean Corpuscular Hemoglobin 32.1 pg (26-34); Mean Corpuscular Volume 95.6 fl (80-100); Mean Platelet Volume 10.7 fl (7.4-10.4); Monocytes Absolute Auto 0.9 K/mm3 (0.1-0.6); Monocytes Percent Auto 8.3 % (2.6-8.5); Neutrophils Absolute Auto 8.9 K/mm3 (1.3-6.7); Platelet Count Result 299 k/mm3 (150-375); Red Blood Count 4.11 M/mm3 (4.6-6.20); White Blood Count 11.2 K/mm3 (4.5-10.0)
[2021-01-04 08:21] LABS: Anion Gap 4 mmol/L (8-16); Blood Urea Nitrogen 22 mg/dL (9-20); Calcium 9.9 mg/dL (8.4-10.2); Carbon Dioxide 29 mmol/L (22-30); Chloride 104 mmol/L (98-107); Estimated CRCL calculation 53 ml/min; Estimated Glomerular Filt Rate > 60; Glucose 88 mg/dL (75-110); Magnesium 1.5 mg/dL (1.6-2.3); Potassium 4.3 mmol/L (3.4-5.0); Sodium 137 mmol/L (137-145)
[2021-01-04] MEDS: predniSONE 10 MG TABLET 30 MG PO (08:59)
[2021-01-04 09:00] VITALS: PULSE 68
[2021-01-04] MEDS: SPIRONOLACTONE 25 MG TABLET PO (09:00)
[2021-01-04] MEDS: FOLIC ACID 1 MG TABLET PO (09:00)
[2021-01-04] MEDS: carvediloL 3.125 MG TABLET PO (09:00)
[2021-01-04] MEDS: CITALOPRAM HYDROBROMIDE 20 MG TABLET PO (09:00)
[2021-01-04] MEDS: ATORVASTATIN 40 MG TABLET PO (09:00)
[2021-01-04] MEDS: ASPIRIN 81 MG ENTERIC TABLET PO (09:00)
[2021-01-04] MEDS: lisinopriL 2.5 MG TABLET PO (09:00)
[2021-01-04 09:28] LABS: Folic Acid 18.7 ng/mL (2.76->20)
--- NOTE | 2021-01-04 11:32 | PM.DS ---
DS: Admitting Diagnosis Admitting Diagnosis Admitting Diagnosis: weakness DS: Discharge Diagnosis Discharge Diagnosis (1) Effusion, right knee: Code(s): M25.461 - Effusion, right knee Status: Acute Assessment and Plan: -Xray showing moderate joint effusion that was aspirated 01/02/21 showing yellow cloudy fluid with 69% neutrophils wit rare msu crystals -Gram stain neg for organisms but shows WBC. no growth on cx -infx initially seemed unlikely (no erythema or warmth). Leukocytosis likely d/t steroids. abx stopped (2) Right leg weakness: Code(s): R29.898 - Other symptoms and signs involving the musculoskeletal system Status: Acute Assessment and Plan: Pt had swelling to the right knee with pain and resistance on flexion and extension which was resolved at d/c -He does have a birthmark on his right knee that is unchanged according to the girlfriend and does not represent inflammatory or infection process. -Joint tap was cloudy with increased neutrophils. No organisms on the gram stain and no growth so far on cx -No other sings of infection (UA and CXR okay). No fevers. -Continue steroids for PMR since it is improving -MRI of lumbar spine and brain without acute pathology (3) Impaired functional mobility, balance, gait, and endurance: Code(s): Z74.09 - Other reduced mobility Status: Acute Assessment and Plan: resolved. Pt walking without issue day of discharge (4) Anemia: Code(s): D64.9 - Anemia, unspecified Status: Acute Assessment and Plan: Patient is at his baseline. No sings of bleeding (5) PMR (polymyalgia rheumatica): Code(s): M35.3 - Polymyalgia rheumatica Status: Acute Assessment and Plan: Spoke with Dr. Childs who states he has a hx of this and was off steroids and had a normal CRP and ESR at that time -Pt improved with steroids and will f/u with Dr. Childs who will ronaldo his steroids. (6) Depressed mood: Code(s): R45.89 - Other symptoms and signs involving emotional state Status: Acute Assessment and Plan: Continue with his Celexa. -no signs or symptoms of acute issues (7) Hyperlipidemia: Qualifiers: Hyperlipidemia type: mixed hyperlipidemia Qualified Code(s): E78.2 - Mixed hyperlipidemia Code(s): E78.5 - Hyperlipidemia, unspecified Status: Acute Assessment and Plan: Continue with atorvastatin -CK normal (8) HTN (hypertension), malignant: Code(s): I10 - Essential (primary) hypertension Status: Chronic Assessment and Plan: Last bp 136/95 -Continue with coreg, linsiopril and spironolactone . (9) Acute metabolic encephalopathy: Code(s): G93.41 - Metabolic encephalopathy Status: Acute Assessment and Plan: Pt had hospital delirum due to lack of sleep 01/03/21 which was completely resolved day of discharge -He did get ativan and seroquel during his confusion. Neither of them were continued at d/c -No signs of stroke. MRI 01/02/21 showed no acute stroke -UA and CXR neg on admission and no changes since admission DS: Summary Hospital Course Hospital Course: Patient is a 80-year-old male who presented emergency room for moderate right knee pain with weakness and difficulty walking after being completely independent at baseline. Vitals in the ER were temperature 36.3? C, pulse 97, respiratory rate 23, blood pressure 122/86, pulse ox 98 on room air. Initial white blood cell count 12.6, hemoglobin 13.1, hematocrit 39.9, platelets 283. BMP within normal limits. Uric acid 5.5. No evidence of infection on UA. Chest x-ray and head CT were negative. Knee x-ray showed moderate suprapatellar joint effusion with osteoarthritis and chondrocalcinosis. Foot x-ray negative. U/s neg for DVT. Patient was admitted to the hospitalist service and observed. The patient continued to have weakness due to the
[2021-01-04] MEDS: MAGNESIUM OXIDE 400 MG TABLET PO (11:38)
[2021-01-04 19:27] LABS: Glucose Synovial Fluid 74 mg/dL
--- NOTE | 2021-01-17 10:28 | PC.NURSE ---
Blood cx are negative.
--- NOTE | 2021-01-23 08:35 | PC.NURSE ---
Knee cx are negative.
== END 2021-01-04 13:31 | disposition home health service (06) | DRG 554 ==
LOC: ANHED 10:39 → ANH3MEDSUR 14:33
PROVIDERS: Nurse Practitioner; Nurse Practitioner Family; Physician Assistant; Admitting Provider Family Medicine; Emergency Provider Emergency Medicine; PCP Internal Medicine; Visit Provider Internal Medicine
DX: M11.261 Other chondrocalcinosis, right knee (principal); F05 Delirium due to known physiological condition; M25.461 Effusion, right knee; M17.11 Unilateral primary osteoarthritis, right knee; D64.9 Anemia, unspecified; M35.3 Polymyalgia rheumatica; E78.2 Mixed hyperlipidemia; I10 Essential (primary) hypertension; I25.10 Atherosclerotic heart disease of native coronary artery without angina pectoris; K21.9 Gastro-esophageal reflux disease without esophagitis; F32.9 Major depressive disorder, single episode, unspecified; F03.90 Unspecified dementia, unspecified severity, without behavioral disturbance, psychotic disturbance, mood disturbance, and anxiety; M85.80 Other specified disorders of bone density and structure, unspecified site; Z74.09 Other reduced mobility; D72.828 Other elevated white blood cell count; T38.0X5A Adverse effect of glucocorticoids and synthetic analogues, initial encounter; Z95.2 Presence of prosthetic heart valve
CPT/HCPCS: 36415; 70450; 70551; 71046; 72148; 73560; 73630; 80048; 80053; 81001; 82550; 82607; 82746; 82945; 82948; 83735; 84157; 84443; 84550; 85025; 85027; 85652; 86140; 87040; 87070; 87075; 87205; 88108; 89051; 89060; 93005; 93970; 96365; 96366; 96367; 96372; 96375; 97110; 97116; 97161; 97165; 97530; 97535; 99285; A9270; G0378; J0696; J2060; J3370; J3475; J7512

== ENCOUNTER 2021-01-29 02:21 | Day surgery (SDC) | payer MEDICARE, SELFPAY ==
[2021-01-16 14:05] VITALS: BMI 21.5
[2021-01-29 06:21] VITALS: BP 146/84; PULSE 72; RESP 18; TEMP 36.1; O2SAT 97
[2021-01-29] MEDS: LACTATED RINGERS 1,000 ML 150 ML IV CONT (06:32)
--- NOTE | 2021-01-29 07:06 | WPDANESEPPF ---
Anes - Initial Pre Proc Eval Procedure: Operation Date: 01/29/21 07:30 Proposed Procedures p Esophagogastroduodenoscopy & Colonoscopy - Sheng Banerjee MD Date/Time: 01/29/21 07:06 Surgeon: Sheng Banerjee MD Pre Op Diagnosis: anemia Patient Data Age: 80 Gender: M Height: 1.85 m Weight: 72 kg Last Vital Signs Temp 97.0 F L 01/29/21 06:21 Pulse 72 01/29/21 06:21 Resp 18 01/29/21 06:21 BP 146/84 H 01/29/21 06:21 Pulse Ox 97 01/29/21 06:21 Allergies Allergy/AdvReac Type Severity Reaction Status Date / Time No Known Allergies Allergy Verified 01/29/21 06:19 Home Medications Medication Instructions Recorded Confirmed Type aspirin 81 mg tablet,delayed 81 mg PO DAILY 06/04/19 01/16/21 History release carvedilol 3.125 mg tablet 3.125 mg PO Q12H 06/04/19 01/29/21 History spironolactone 25 mg tablet 25 mg PO DAILY 06/04/19 01/16/21 History atorvastatin 40 mg PO DAILY 12/31/20 01/16/21 History citalopram 20 mg PO DAILY 12/31/20 01/16/21 History donepezil 10 mg PO DAILY 12/31/20 01/16/21 History duloxetine 20 mg PO HS 12/31/20 01/16/21 History folic acid 1 mg PO DAILY 12/31/20 01/16/21 History magnesium oxide 400 mg PO DAILY #30 tablet 01/04/21 01/16/21 Rx prednisone 20 mg tablet 20 mg PO DAILY #100 tablet 01/11/21 01/16/21 Rx lisinopril 2.5 mg tablet 2.5 mg PO DAILY #90 tablet 01/22/21 01/29/21 Rx rabeprazole 20 mg tablet,delayed 20 mg PO DAILY #90 tablet 01/22/21 01/29/21 Rx release Patient hx anesthesia problems: none Family hx anesthesia problems: none PMFSH Past Medical History Medical History (Updated 01/11/21 @ 15:48 by Aurora Gonsalves [facility]) AB (asthmatic bronchitis) Anemia ASHD (arteriosclerotic heart disease) BMI 20.0-20.9, adult BMI 21.0-21.9, adult Bradycardia Bronchitis CAD (coronary artery disease) Chronic low back pain Cognitive dysfunction Debility Depressed mood Effusion, right knee Elevated homocysteine Fall Follow up GERD (gastroesophageal reflux disease) Hearing loss History of hemochromatosis HTN (hypertension), malignant Hyperlipidemia Hypomagnesemia Illness Impaired functional mobility, balance, gait, and endurance Multiple joint pain Plantar fasciitis Pulmonary granuloma Unexplained weight loss URI (upper respiratory infection) Ventricular bigeminy Surgical History Surgical History History of colon resection S/P AVR (aortic valve replacement) Family History Family History Sibling Hypertension Family history of malignant neoplasm of bone Father Family history of emphysema Family history of tuberculosis Family history of malignant neoplasm Mother Hypertension Family history of Parkinson's disease Social History Social History Social History: The patient stated that he is and has 2 children. The patient stated that he is a full code. And he has a male friend that is does needed to be a durable power [place] attorney but could remember same at this point. The patient stated that he lives with a female friend. 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 The patient stated he is a lifelong nonsmoker. He does not drink or use marijuana or illicit drugs. Smoking status: Never smoker Alcohol intake: never Substance use: never Living arrangements: with family Additional living arrangements comments: [place] Gender identity (if verbalized by the patient): Male Spiritual care concerns: No Anes - Eval Final PreProcedure Day of Procedure 01/29/21 07:06 Patient weight: normal Heart: bradycardia Lungs: clear to auscultation Airway: Mallampati scale class III Neurological: alert and oriented Last oral intake: >/= 8 hours ASA classification: III Emergent: no Anesthetic plan: proceed Anesthesia type and monitoring: general GIVS and standard
--- NOTE | 2021-01-29 07:23 | PM.HPGS ---
History of Present Illness History of Present Illness Consent: Risks, benefits, and alternatives have been discussed and questions answered. Patient agrees to proceed with procedure. Chief complaint: anemia Narrative: Marcel Awad is a 80 year old male Who has been found to be anemic. He does not see blood in his stools. He tends to bruise easily. He denies abdominal pain nausea vomiting. He has lost a little weight but he attributes this to being very active. He has a very good appetite. His bowels are regular. He had a polyp removed several years ago. He suffers from polymyalgia rheumatica, is his last significant flare-up about 5 or 6 months ago. He states that he is not on anticoagulants except for his aspirin tab Review of Systems Review of Systems: All systems reviewed & are unremarkable except as noted in HPI and below PMFSH Past Medical History Medical History AB (asthmatic bronchitis) Anemia ASHD (arteriosclerotic heart disease) BMI 20.0-20.9, adult BMI 21.0-21.9, adult Bradycardia Bronchitis CAD (coronary artery disease) Chronic low back pain Cognitive dysfunction Debility Depressed mood Effusion, right knee Elevated homocysteine Fall Follow up GERD (gastroesophageal reflux disease) Hearing loss History of hemochromatosis HTN (hypertension), malignant Hyperlipidemia Hypomagnesemia Illness Impaired functional mobility, balance, gait, and endurance Multiple joint pain Plantar fasciitis Pulmonary granuloma Unexplained weight loss URI (upper respiratory infection) Ventricular bigeminy Surgical History Surgical History History of colon resection S/P AVR (aortic valve replacement) Family History Family History Sibling Hypertension Family history of malignant neoplasm of bone Father Family history of emphysema Family history of tuberculosis Family history of malignant neoplasm Mother Hypertension Family history of Parkinson's disease Social History Social History Social History: The patient stated that he is and has 2 children. The patient stated that he is a full code. And he has a male friend that is does needed to be a durable power disability attorney but could remember same at this point. The patient stated that he lives with a female friend. 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 The patient stated he is a lifelong nonsmoker. He does not drink or use marijuana or illicit drugs. Smoking status: Never smoker Alcohol intake: never Substance use: never Living arrangements: with family Additional living arrangements comments: [place] Gender identity (if verbalized by the patient): Male Spiritual care concerns: No Meds Home Medications and Allergies Home Medications Medication Instructions Recorded Confirmed Type aspirin 81 mg tablet,delayed 81 mg PO DAILY 06/04/19 01/16/21 History release carvedilol 3.125 mg tablet 3.125 mg PO Q12H 06/04/19 01/29/21 History spironolactone 25 mg tablet 25 mg PO DAILY 06/04/19 01/16/21 History atorvastatin 40 mg PO DAILY 12/31/20 01/16/21 History citalopram 20 mg PO DAILY 12/31/20 01/16/21 History donepezil 10 mg PO DAILY 12/31/20 01/16/21 History duloxetine 20 mg PO HS 12/31/20 01/16/21 History folic acid 1 mg PO DAILY 12/31/20 01/16/21 History magnesium oxide 400 mg PO DAILY #30 tablet 01/04/21 01/16/21 Rx prednisone 20 mg tablet 20 mg PO DAILY #100 tablet 01/11/21 01/16/21 Rx lisinopril 2.5 mg tablet 2.5 mg PO DAILY #90 tablet 01/22/21 01/29/21 Rx rabeprazole 20 mg tablet,delayed 20 mg PO DAILY #90 tablet 01/22/21 01/29/21 Rx release Allergies Allergy/AdvReac Type Severity Reaction Status Date / Time No Known Allergies Allergy Verified 01/29/21 06:19 Vital Signs Vital Signs - 24 hr
[2021-01-29] MEDS: GENTAMICIN 80MG/SOD CHL 50 ML 80 MG/50 ML BAG 100 MG IVPB (07:36)
[2021-01-29] MEDS: AMPICILLIN 2 GM/NS 100 ML 2 GM/100 ML BAG IVPB (07:59)
[2021-01-29 08:33] VITALS: BP 102/73; PULSE 57; RESP 16; O2SAT 96
[2021-01-29 08:43] VITALS: BP 147/83; PULSE 60; RESP 18; O2SAT 98
[2021-01-29 08:53] VITALS: BP 169/103; PULSE 59; RESP 17; O2SAT 98
== END 2021-01-29 09:07 | disposition home or self-care (01) ==
PROVIDERS: PCP Internal Medicine; Visit Provider Internal Medicine Gastroenterology
PROC: 0DJ08ZZ Inspection of Upper Intestinal Tract, Via Natural or Artificial Opening Endoscopic (ICD-10-PCS; CPT 43235; principal; 2021-01-29 07:30)
DX: D64.9 Anemia, unspecified (principal); K44.9 Diaphragmatic hernia without obstruction or gangrene; K57.30 Diverticulosis of large intestine without perforation or abscess without bleeding; K64.8 Other hemorrhoids; I25.10 Atherosclerotic heart disease of native coronary artery without angina pectoris; I10 Essential (primary) hypertension; M35.3 Polymyalgia rheumatica; K21.9 Gastro-esophageal reflux disease without esophagitis; E83.119 Hemochromatosis, unspecified; E78.5 Hyperlipidemia, unspecified; J84.10 Pulmonary fibrosis, unspecified; J45.909 Unspecified asthma, uncomplicated; M54.5 Low back pain; G89.29 Other chronic pain; R63.4 Abnormal weight loss; F32.9 Major depressive disorder, single episode, unspecified; Z79.82 Long term (current) use of aspirin; Z86.010 Personal history of colon polyps; Z95.2 Presence of prosthetic heart valve; Z90.49 Acquired absence of other specified parts of digestive tract
CPT/HCPCS: 43239; 45378; 87081; J0290; J1580; J2704; J7120

== ENCOUNTER 2021-02-18 09:27 | Emergency (ER) | payer MEDICARE, SELFPAY ==
[2021-02-18 09:31] VITALS: BP 133/94; PULSE 78; RESP 16; TEMP 36.4; O2SAT 99
--- NOTE | 2021-02-18 10:37 | ED.SKABFB ---
HPI - Skin/Abscess/Foreign Bdy General Chief complaint: Skin/Abscess/Foreign Body Stated complaint: rash Time Seen by Provider: 02/18/21 10:26 Source: patient Mode of arrival: ambulatory Limitations: no limitations History of Present Illness HPI narrative: This is a 80-year-old male that presents to the emergency department for a rash noted to his back and abdomen over the last week. Reports yesterday he noticed the rash to be spreading around to his abdomen. The rash is painful and a little bit itchy. Denies fevers. Related Data Home Medications Medication Instructions Recorded Confirmed aspirin 81 mg tablet,delayed 81 mg PO DAILY 06/04/19 01/16/21 release carvedilol 3.125 mg tablet 3.125 mg PO Q12H 06/04/19 01/29/21 spironolactone 25 mg tablet 25 mg PO DAILY 06/04/19 01/16/21 atorvastatin 40 mg PO DAILY 12/31/20 01/16/21 citalopram 20 mg PO DAILY 12/31/20 01/16/21 donepezil 10 mg PO DAILY 12/31/20 01/16/21 duloxetine 20 mg PO HS 12/31/20 01/16/21 folic acid 1 mg PO DAILY 12/31/20 01/16/21 Allergies Allergy/AdvReac Type Severity Reaction Status Date / Time No Known Allergies Allergy Verified 02/18/21 09:36 Review of Systems Review of Systems: CONSTITUTIONAL: Denies fever SKIN: Reports rash and itching. All systems reviewed & are unremarkable except as noted in HPI and below PMFSH Past Medical History Medical History AB (asthmatic bronchitis) Anemia ASHD (arteriosclerotic heart disease) BMI 20.0-20.9, adult BMI 21.0-21.9, adult Bradycardia Bronchitis CAD (coronary artery disease) Chronic low back pain Cognitive dysfunction Debility Depressed mood Effusion, right knee Elevated homocysteine Fall Follow up GERD (gastroesophageal reflux disease) Hearing loss History of hemochromatosis HTN (hypertension), malignant Hyperlipidemia Hypomagnesemia Illness Impaired functional mobility, balance, gait, and endurance Multiple joint pain Plantar fasciitis Pulmonary granuloma Unexplained weight loss URI (upper respiratory infection) Ventricular bigeminy Surgical History Surgical History History of colon resection S/P AVR (aortic valve replacement) Family History Family History Sibling Hypertension Family history of malignant neoplasm of bone Father Family history of emphysema Family history of tuberculosis Family history of malignant neoplasm Mother Hypertension Family history of Parkinson's disease Social History Social History Social History: The patient stated that he is and has 2 children. The patient stated that he is a full code. And he has a male friend that is does needed to be a durable power claims attorney but could remember same at this point. The patient stated that he lives with a female friend. 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 The patient stated he is a lifelong nonsmoker. He does not drink or use marijuana or illicit drugs. Smoking status: Never smoker Alcohol intake: never Substance use: never Additional living arrangements comments: [place] Gender identity (if verbalized by the patient): Male Spiritual care concerns: No Exam Narrative: GENERAL: Well-appearing, well-nourished, and in no acute distress. HEAD: Normocephalic, atraumatic. EYES: EOMI. EXTREMITIES: Normal range of motion. No edema. SKIN: Warm, dry, no rash. Vesicles present on an erythematous base in a dermatomal pattern over the right lower back radiating to the groin NEURO: No focal deficits. Alert and oriented x3. PSYCH: Normal mood and affect Course Vital Signs Vital signs: Vital Signs Temperature 97.5 F L 02/18/21 09:31 Pulse Rate 78 02/18/21 09:31 Respiratory Rate 16 02/18/21 09:31 Blood Pressure 133/94 H 02/18/21 09:31 Pulse Oximet
[2021-02-18] MEDS: valACYclovir HCL 500 MG TABLET 1000 MG PO (11:16)
[2021-02-18 11:20] VITALS: BP 138/80; PULSE 80; RESP 20; O2SAT 99
== END 2021-02-18 11:21 | disposition home or self-care (01) ==
PROVIDERS: Emergency Provider Emergency Medicine; PCP Internal Medicine
DX: B02.9 Zoster without complications (principal); D64.9 Anemia, unspecified; I25.10 Atherosclerotic heart disease of native coronary artery without angina pectoris; K21.9 Gastro-esophageal reflux disease without esophagitis; I10 Essential (primary) hypertension
CPT/HCPCS: 99283; A9270

== ENCOUNTER 2021-04-13 12:29 | Outpatient (CLI) | payer MEDICARE, SELFPAY ==
[2021-04-13 13:00] LABS: Alanine Aminotransferase 24 U/L (4-50); Alkaline Phosphatase 78 U/L (38-126); Anion Gap 5 mmol/L (8-16); Aspartate Amino Transferase 26 U/L (17-59); Bilirubin,Total 2.4 mg/dL (0.2-1.3); Blood Urea Nitrogen 16 mg/dL (9-20); CRP < 0.5 mg/dL (<1.0); Calcium 9.6 mg/dL (8.4-10.2); Carbon Dioxide 28 mmol/L (22-30); Chloride 103 mmol/L (98-107); Cholesterol 124 mg/dL (0-200); Estimated Glomerular Filt Rate > 60; Glucose 117 mg/dL (65-110); HDL Direct 53 mg/dL; Magnesium 1.1 mg/dL (1.6-2.3); Potassium 4.2 mmol/L (3.4-5.0); Sodium 136 mmol/L (137-145); Triglycerides 82 mg/dL (<150)
[2021-04-13 13:09] LABS: Erythrocyte Sedimentation Rate 1 mm/hr (0-20); LDL Cholesterol Direct 56 mg/dL; Prealbumin 25.8 mg/dL (17.6-36.0)
[2021-04-13 13:11] LABS: Hemoglobin A1C 5.4 % (<5.7)
[2021-04-13 13:31] LABS: Vitamin D 25 Hydroxy 43.5 ng/mL
== END 2021-04-13 12:30 | disposition home or self-care (01) ==
PROVIDERS: PCP Internal Medicine; Visit Provider Internal Medicine
DX: M35.3 Polymyalgia rheumatica (principal); Z79.899 Other long term (current) drug therapy; E55.9 Vitamin D deficiency, unspecified; E83.42 Hypomagnesemia; E78.2 Mixed hyperlipidemia
CPT/HCPCS: 36415; 80053; 80061; 82306; 83036; 83735; 84134; 85652; 86140

== ENCOUNTER 2021-05-02 09:24 | Outpatient (CLI) | payer MEDICARE, SELFPAY ==
[2021-05-02 10:11] LABS: Hemoglobin A1C 5.5 % (<5.7)
[2021-05-02 10:23] LABS: Alanine Aminotransferase 16 U/L (4-50); Albumin Level 3.4 g/dL (3.5-5.1); Alkaline Phosphatase 61 U/L (38-126); Anion Gap 5 mmol/L (8-16); Aspartate Amino Transferase 21 U/L (17-59); Bilirubin,Total 1.3 mg/dL (0.2-1.3); Blood Urea Nitrogen 9 mg/dL (9-20); CRP < 0.5 mg/dL (<1.0); Calcium 9.3 mg/dL (8.4-10.2); Carbon Dioxide 28 mmol/L (22-30); Chloride 104 mmol/L (98-107); Cholesterol 136 mg/dL (0-200); Estimated Glomerular Filt Rate > 60; Glucose 138 mg/dL (65-110); HDL Direct 66 mg/dL; Potassium 4.1 mmol/L (3.4-5.0); Sodium 137 mmol/L (137-145); Triglycerides 86 mg/dL (<150)
[2021-05-02 10:32] LABS: LDL Cholesterol Direct 56 mg/dL
[2021-05-02 10:35] LABS: Erythrocyte Sedimentation Rate 1 mm/hr (0-20)
[2021-05-02 10:40] LABS: Free T4 Free Thyroxine 0.97 ng/mL (0.78-2.19)
[2021-05-05 20:58] LABS: Homocysteine 13.3 umol/L (<11.4)
[2021-05-07 11:08] LABS: Vitamin D 1,25 (OH)2 Total 43 pg/mL (18-72); Vitamin D2 1,25 (OH)2 <8 pg/mL; Vitamin D3 1,25 (OH)2 43 pg/mL
== END 2021-05-02 09:25 | disposition home or self-care (01) ==
PROVIDERS: PCP Internal Medicine; Visit Provider Internal Medicine
DX: Z79.899 Other long term (current) drug therapy (principal); E83.42 Hypomagnesemia; E78.2 Mixed hyperlipidemia; R79.89 Other specified abnormal findings of blood chemistry; M35.3 Polymyalgia rheumatica; E55.9 Vitamin D deficiency, unspecified
CPT/HCPCS: 36415; 80053; 80061; 82652; 83036; 83090; 83735; 84439; 84443; 85652; 86140

== ENCOUNTER 2021-05-28 08:48 | Outpatient (CLI) | payer MEDICARE, SELFPAY ==
[2021-05-28 09:51] LABS: Basophils Absolute Auto 0.1 K/mm3 (0.0-0.1); Basophils Percent Auto 0.8 % (0.2-1.2); Eosinophils Absolute Auto 0.1 K/mm3 (0-0.3); Eosinophils Percent Auto 0.5 % (0-4.4); Hematocrit 43.7 % (42.0-52.0); Hemoglobin 14.5 g/dL (14.0-18.0); Immature Granulocyte Absolute 0.12 K/mm3 (0.00-0.031); Immature Granulocyte Percent A 1.1 % (0-0.5); Lymphocytes Percent Auto 12.8 % (18.3-44.2); Mean Corpuscular HGB Conc 33.2 g/dl (32-36); Mean Corpuscular Hemoglobin 34.9 pg (26-34); Mean Corpuscular Volume 105.3 fl (80-100); Mean Platelet Volume 11.1 fl (7.4-10.4); Monocytes Absolute Auto 1.3 K/mm3 (0.1-0.6); Monocytes Percent Auto 12.2 % (2.6-8.5); Neutrophils Absolute Auto 7.9 K/mm3 (1.3-6.7); Neutrophils Percent Auto 72.6 % (45.5-73.1); Platelet Count Result 151 k/mm3 (150-375); Red Blood Count 4.15 M/mm3 (4.6-6.20); White Blood Count 10.9 K/mm3 (4.5-10.0)
[2021-05-28 09:57] LABS: CRP < 0.5 mg/dL (<1.0)
[2021-05-28 11:05] LABS: Folic Acid > 20.0 ng/mL (2.76->20)
[2021-05-28 14:27] LABS: Erythrocyte Sedimentation Rate 4 mm/hr (0-20)
== END 2021-05-28 08:49 | disposition home or self-care (01) ==
LOC: ANHLAB 08:54
PROVIDERS: PCP Internal Medicine; Visit Provider Internal Medicine
DX: M35.3 Polymyalgia rheumatica (principal); Z79.899 Other long term (current) drug therapy
CPT/HCPCS: 36415; 82607; 82746; 85025; 85652; 86140

== ENCOUNTER 2021-07-09 11:15 | Outpatient (CLI) | payer MEDICARE, SELFPAY ==
[2021-07-09 11:44] LABS: Anion Gap 5 mmol/L (8-16); Blood Urea Nitrogen 10 mg/dL (9-20); Calcium 9.8 mg/dL (8.4-10.2); Carbon Dioxide 29 mmol/L (22-30); Chloride 104 mmol/L (98-107); Estimated Glomerular Filt Rate 59; Glucose 106 mg/dL (65-110); Potassium 4.7 mmol/L (3.4-5.0); Sodium 138 mmol/L (137-145)
== END 2021-07-09 11:16 | disposition home or self-care (01) ==
LOC: ANHSURGERY 11:20
PROVIDERS: Anesthesiology; PCP Internal Medicine; Visit Provider Surgery
DX: Z01.818 Encounter for other preprocedural examination (principal); Z79.899 Other long term (current) drug therapy
CPT/HCPCS: 36415; 80048

== ENCOUNTER 2021-07-11 00:31 | Day surgery (SDC) | payer MEDICARE, SELFPAY ==
[2021-07-04 13:33] VITALS: BMI 21.8
--- NOTE | 2021-07-04 13:38 | PC.NURSE ---
Report to the Outpatient Waiting Room, entrance under the green pavilion located off [facility], at time _0600_ on date _07/11/21_. OR Time: _0900_. - You and your visitor will be asked a series of questions to screen for COVID 19 for your protection. - A mask is required within the hospital. - Only one visitor is allowed at this time. Patient visitors will be guided where to wait when not with patient. Preoperative COVID Testing Requirements: No COVID Test needed if: (proof is required; if not received patient will have Rapid Test prior to entry) - Patient has received COVID Vaccine at least 14 days prior to procedure date or - Patient has positive COVID test result within last 90 days of surgery date. COVID Test needed if above criteria is not met If not COVID vaccinated a COVID test must be conducted within 72 hours of surgery and patient is asked to isolate self from time of testing until procedure. You will go to the [facility] for your COVID testing. The [facility] is located at the corner of [address] [facility]. You will only be called if COVID results are positive and your surgeon may reschedule your elective surgery date. Patients may have clear liquids (water, carbonated beverages, clear teas, apple juice) until 3 hours prior to surgery (0600 AM) with a maximum of 20 ounces. - No food from midnight until time of surgery - Infants may have breast milk until 4 hours before surgery, formula 6 hours prior to surgery. - Children will be allowed to drink immediately following surgery. If applicable, please bring a bottle or sippy cup to assist with drinking. Juice, water, soda, and popsicles are readily available. For infants on formula, please bring formula the day of surgery. Pacifiers are allowed. Take the following medications with a SIP of water the morning of surgery: _CARVEDILOL, CITALOPRAM, DONEPEZIL, GABAPENTIN_ Medications to discontinue per DR. RDZ - _ASPIRIN OF TODAY 07/04/21,_ALL VITAMINS AND SUPPLEMENTS - 3 DAYS PRIOR TO SURGERY PER ANESTHESIA - Date to take last dose___07/07/21_ Please no make-up, nail serbian, hairspray, perfume, deodorant, or body powder the day of surgery. No jewelry (including any body piercings) or valuables the day of surgery, leave them at home. Please take a shower or bath the night before, or the morning of, surgery with an antibacterial soap. Wear comfortable, loose fitting clothing. Children are encouraged to wear pajamas. - Jewelry must be removed prior to entering the operating room. Rings and piercings that are not removed may be cut off. - The hospital will not accept responsibility for valuables. - Please leave all valuables, including medications, at home the day of surgery. If you are going home after surgery, a licensed crew car driver must drive you home. - NO public transportation without another adult. - We recommend that an adult stay with you for 24 hours following discharge. - We also recommend that you do not drive, make important decision, drink alcoholic beverages, or take any drugs that were not prescribed by your health care provider for at least 24 hours after your discharge time. For Pediatric surgeries, we recommend two adults accompany the child home (only one inside the building at this time). Follow any additional instructions given to you from your surgeon. [facility] AM OF SURGERY Telephone instructions given to __PT and asked if any additional questions and then verbalized understanding. Patient advised to call surgeon office or pre surgery nurse liaison [phone] if any additional questions.
--- NOTE | 2021-07-10 15:30 | PM.SD2 ---
Same Day Admit/Disch: HPI History of Present Illness Chief complaint: right inguinal hernia Narrative: Marcel Awad is a 80 year old male who was seen in the office for a right inguinal bulge. He noticed this 1st couple of months ago. When it bulges it is very uncomfortable for him. He is taken to surgery now for repair of right inguinal hernia. [facility] Past Medical History Medical History AB (asthmatic bronchitis) Abnormal thyroid function test Anemia Ascending aortic aneurysm ASHD (arteriosclerotic heart disease) BMI 20.0-20.9, adult BMI 21.0-21.9, adult BMI 22.0-22.9, adult Bradycardia Bronchitis CAD (coronary artery disease) Cardiac arrhythmia Chronic low back pain Cognitive dysfunction Debility Depressed mood Effusion, right knee Elevated homocysteine Fall Fatigue Follow up Follow up GERD (gastroesophageal reflux disease) Groin pain Hearing loss History of hemochromatosis HTN (hypertension), malignant Hyperlipidemia Hypomagnesemia Impaired functional mobility, balance, gait, and endurance Multiple joint pain Plantar fasciitis Post herpetic neuralgia Pulmonary granuloma Rhinorrhea Shingles Unexplained weight loss URI (upper respiratory infection) Ventricular bigeminy Surgical History Surgical History History of colon resection S/P AVR (aortic valve replacement) Family History Family History Sibling Hypertension Family history of malignant neoplasm of bone Father Family history of emphysema Family history of tuberculosis Family history of malignant neoplasm Mother Hypertension Family history of Parkinson's disease Social History Social History Social History: The patient stated that he is and has 2 children. The patient stated that he is a full code. And he has a male friend that is does needed to be a durable power document review attorney but could remember same at this point. The patient stated that he lives with a female friend. 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 The patient stated he is a lifelong nonsmoker. He does not drink or use marijuana or illicit drugs. Smoking status: Former smoker Tobacco type: cigarettes Second hand tobacco smoke exposure: Yes (STATES VERY RARELY) Additional smoking assessment comments: STATES SMOKED FOR SHORT TIME WHILE IN THE [employer] - UNABLE TO RECALL AMOUNT Alcohol intake: never Substance use: never Substance use type: does not use Living arrangements: with friend(s) Additional living arrangements comments: LIVES WITH SIGNIFICANT OTHER Gender identity (if verbalized by the patient): Male Spiritual care concerns: No Same Day Admit/Disch: Med Pre-admit Medications Home Medications Medication Instructions Recorded Confirmed Type carvedilol 3.125 mg tablet 3.125 mg PO Q12H 06/04/19 07/11/21 History spironolactone 25 mg tablet 25 mg PO DAILY 06/04/19 07/11/21 History atorvastatin 40 mg PO QAM 12/31/20 07/11/21 History donepezil 10 mg PO QAM 12/31/20 07/11/21 History duloxetine 20 mg PO HS 12/31/20 07/11/21 History gabapentin 100 mg capsule 100 mg PO TID #90 cap 04/12/21 07/11/21 Rx magnesium chloride 71.5 mg 71.5 mg PO BID #60 tablet 04/16/21 07/11/21 Rx (magnesium chloride) tablet,delayed release cyanocobalamin (vitamin B-12) 1,000 mcg PO DAILY 05/10/21 07/11/21 History 1,000 mcg tablet aspirin 81 mg tablet,delayed 81 mg PO QAM 06/19/21 07/11/21 History release citalopram 20 mg QAM 07/04/21 07/11/21 History folic acid 1 mg QAM 07/04/21 07/11/21 History lisinopril 2.5 mg PO QAM 07/04/21 07/11/21 History rabeprazole 20 mg PO QAM 07/04/21 07/11/21 History ibuprofen 600 mg PO Q6H PRN #14 tablet 07/11/21 Rx tramadol 50 mg PO Q6H PRN #10 tablet 07/11/21 Rx Exam Const: General: comfortabl
--- NOTE | 2021-07-11 07:03 | WPDHPUPDATE1 ---
History and Physical Update Update Date/Time: 07/11/21 07:03 History and Physical has been reviewed, including an updated exam of the patient. There are NO changes in the patient's condition. Risks, benefits, and alternatives have been discussed and questions answered. Patient agrees to proceed with procedure.
[2021-07-11 07:05] VITALS: BP 152/71; PULSE 46; RESP 18; TEMP 36.2; O2SAT 100
[2021-07-11] MEDS: ACETAMINOPHEN 500 MG TABLET 1000 MG PO (07:50)
[2021-07-11] MEDS: LACTATED RINGERS 1,000 ML 30 ML IV CONT (08:06)
[2021-07-11] MEDS: KETOROLAC 15 MG/ML VIAL (*BKC) IV PUSH (08:07)
--- NOTE | 2021-07-11 08:14 | WPDANESEPPF ---
Anes - Initial Pre Proc Eval Procedure: Operation Date: 07/11/21 09:00 Proposed Procedures p Right Inguinal Hernia Repair - Hunter Grubbs MD Date/Time: 07/11/21 08:14 Surgeon: Hunter Grubbs MD Pre Op Diagnosis: right inguinal hernia Patient Data Age: 80 Gender: M Height: 1.85 m Weight: 74.3 kg Last Vital Signs Temp 36.2 C L 07/11/21 07:05 Pulse 46 L 07/11/21 07:05 Resp 18 07/11/21 07:05 BP 152/71 H 07/11/21 07:05 Pulse Ox 100 07/11/21 07:05 Allergies Allergy/AdvReac Type Severity Reaction Status Date / Time No Known Allergies Allergy Verified 07/11/21 07:40 Home Medications Medication Instructions Recorded Confirmed Type carvedilol 3.125 mg tablet 3.125 mg PO Q12H 06/04/19 07/11/21 History spironolactone 25 mg tablet 25 mg PO DAILY 06/04/19 07/11/21 History atorvastatin 40 mg PO QAM 12/31/20 07/11/21 History donepezil 10 mg PO QAM 12/31/20 07/11/21 History duloxetine 20 mg PO HS 12/31/20 07/11/21 History gabapentin 100 mg capsule 100 mg PO TID #90 cap 04/12/21 07/11/21 Rx magnesium chloride 71.5 mg 71.5 mg PO BID #60 tablet 04/16/21 07/11/21 Rx (magnesium chloride) tablet,delayed release cyanocobalamin (vitamin B-12) 1,000 mcg PO DAILY 05/10/21 07/11/21 History 1,000 mcg tablet aspirin 81 mg tablet,delayed 81 mg PO QAM 06/19/21 07/11/21 History release citalopram 20 mg QAM 07/04/21 07/11/21 History folic acid 1 mg QAM 07/04/21 07/11/21 History lisinopril 2.5 mg PO QAM 07/04/21 07/11/21 History rabeprazole 20 mg PO QAM 07/04/21 07/11/21 History Patient hx anesthesia problems: none Family hx anesthesia problems: none Results Review: All pre-operative results and documents have been reviewed as part of the pre-operative evaluation. [facility] Past Medical History Medical History AB (asthmatic bronchitis) Abnormal thyroid function test Anemia Ascending aortic aneurysm ASHD (arteriosclerotic heart disease) BMI 20.0-20.9, adult BMI 21.0-21.9, adult BMI 22.0-22.9, adult Bradycardia Bronchitis CAD (coronary artery disease) Cardiac arrhythmia Chronic low back pain Cognitive dysfunction Debility Depressed mood Effusion, right knee Elevated homocysteine Fall Fatigue Follow up Follow up GERD (gastroesophageal reflux disease) Groin pain Hearing loss History of hemochromatosis HTN (hypertension), malignant Hyperlipidemia Hypomagnesemia Impaired functional mobility, balance, gait, and endurance Multiple joint pain Plantar fasciitis Post herpetic neuralgia Pulmonary granuloma Rhinorrhea Shingles Unexplained weight loss URI (upper respiratory infection) Ventricular bigeminy Surgical History Surgical History History of colon resection S/P AVR (aortic valve replacement) Family History Family History Sibling Hypertension Family history of malignant neoplasm of bone Father Family history of emphysema Family history of tuberculosis Family history of malignant neoplasm Mother Hypertension Family history of Parkinson's disease Social History Social History Social History: The patient stated that he is and has 2 children. The patient stated that he is a full code. And he has a male friend that is does needed to be a durable power employment law attorney but could remember same at this point. The patient stated that he lives with a female friend. 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 The patient stated he is a lifelong nonsmoker. He does not drink or use marijuana or illicit drugs. Smoking status: Former smoker Tobacco type: cigarettes Second hand tobacco smoke exposure: Yes (STATES VERY RARELY) Additional smoking assessment comments: STATES SMOKED FOR SHORT TIME WHILE IN THE [employer] - UNABLE TO RECALL AMOUNT Alcohol intake: never
[2021-07-11] MEDS: ceFAZolin 2 GM/D5W 50 ML 2 GM/50 ML BAG IVPB (08:35)
[2021-07-11] MEDS: BUPIVACAINE/EPINEPHRINE 0.5% 10 ML VIAL 40 ML INFILTRATE (08:51)
[2021-07-11 09:56] VITALS: BP 131/68; PULSE 60; RESP 16; O2SAT 99
[2021-07-11 10:10] VITALS: BP 114/80; PULSE 61; RESP 16; O2SAT 100
[2021-07-11 10:20] VITALS: BP 114/87; PULSE 58; RESP 16; O2SAT 100
[2021-07-11 10:35] VITALS: BP 142/99; PULSE 58; RESP 16; O2SAT 98
--- NOTE | 2021-07-11 12:35 | P.OP_ITS ---
Procedure Note - Detailed Date of Procedure 07/11/21 Pre-op Diagnosis right inguinal hernia Post-op Diagnosis same Procedure Performed Right inguinal hernia repair with 6 cm Parietex hernia mesh system Surgeon Hunter Grubbs MD Quarter Folder Maude BRAVO Anesthesia general (G IV S) and local (0.5% Marcaine with epinephrine, Xaracoll) Indications Patient has a bulge which is sometimes painful in the right groin. Exam showed a hernia. He is taken to surgery now for repair. Findings A moderate-sized direct inguinal hernia was noted. There was no indirect hernia. Description of Procedure Patient was taken to surgery and placed in a supine position. IV sedation was administered. The right groin and genitalia were prepped and draped. The proposed incision was marked on the skin. Local was infiltrated into the skin and the deeper subcutaneous tissues. Incision was made and dissection was carried down through the subcutaneous. Crossing veins were cauterized and divided. We continued our dissection through Janie's fascia and down to the external oblique aponeurosis. The aponeurosis was exposed as was the external ring. We then infiltrated additional local deep to the aponeurosis in the area of the inguinal canal and spermatic cord. The aponeurosis was then opened laterally and extended medially through the external ring. The leaves the aponeurosis were freed from the underlying inguinal canal contents. I then mobilized the spermatic cord medially on a [place] drain. We mobilized it back to the internal ring. The direct hernia was fairly easily seen. It was dissected free from the spermatic cord and then dissected from any additional attachments in the inguinal canal floor. I dissected some fatty tissue from the cord as well. We looked in the cord for any sign of an indirect hernia and no evidence of 1 was found. I then continued dissection of the direct hernia and eventually dissected it down to its neck. We divided the transversalis fascia circumferentially around the neck of the hernia sac. I then dunked the sac into the retroperitoneum. A 6 cm Parietex tolowa dee-ni' was chosen. It was folded deform a plug. It was placed in the defect and sutured there with interrupted 3 0 Vicryl suture. We then cut the patch to the appropriate size and laid over the inguinal canal floor. The lateral leaves were passed beyond the cord. I then started placing pieces of Xaracoll over the mesh. We closed the external oblique aponeurosis with interrupted 3 0 Vicryl suture. Additional Xaracoll was placed over the aponeurosis. Janie's fascia was closed with interrupted 3-0 Vicryl suture as well. Xaracoll was placed in the subcutaneous. We then closed the skin loosely with interrupted 4 0 Vicryl subcuticular suture. The skin was finally closed with a running 4-0 Monocryl skin suture. The wound was dressed with Exofin surgical adhesive. Patient was awakened and taken to recovery in good condition. Sponge and needle counts were correct x2. Implants 6 cm Parietex hernia mesh system, Xaracoll Estimated Blood Loss -5 Urine Output 50 Drains No Packing No Pathology none sent Complications No immediate complications Condition stable Disposition same day
== END 2021-07-11 11:00 | disposition home or self-care (01) ==
PROVIDERS: PCP Internal Medicine; Visit Provider Surgery
PROC: (CPT 49505; principal; 2021-07-11 09:00)
DX: K40.90 Unilateral inguinal hernia, without obstruction or gangrene, not specified as recurrent (principal); I10 Essential (primary) hypertension; I25.10 Atherosclerotic heart disease of native coronary artery without angina pectoris; E78.5 Hyperlipidemia, unspecified; D64.9 Anemia, unspecified; I71.4 Abdominal aortic aneurysm, without rupture; K21.9 Gastro-esophageal reflux disease without esophagitis; F32.9 Major depressive disorder, single episode, unspecified; Z90.49 Acquired absence of other specified parts of digestive tract; Z79.82 Long term (current) use of aspirin; Z95.4 Presence of other heart-valve replacement
CPT/HCPCS: 49505; 36415; 80048; A9270; C1781; J0690; J1885; J2370; J2704; J3010; J7120

== ENCOUNTER 2021-07-31 10:32 | Outpatient (CLI) | payer MEDICARE, SELFPAY ==
[2021-07-31 11:01] LABS: Basophils Absolute Auto 0.1 K/mm3 (0.0-0.1); Basophils Percent Auto 1.2 % (0.2-1.2); Eosinophils Absolute Auto 0.1 K/mm3 (0-0.3); Eosinophils Percent Auto 0.9 % (0-4.4); Hematocrit 43.5 % (42.0-52.0); Hemoglobin 14.9 g/dL (14.0-18.0); Immature Granulocyte Absolute 0.04 K/mm3 (0.00-0.031); Immature Granulocyte Percent A 0.4 % (0-0.5); Lymphocytes Absolute Auto 1.26 K/mm3 (0.9-3.2); Lymphocytes Percent Auto 12.1 % (18.3-44.2); Mean Corpuscular HGB Conc 34.3 g/dl (32-36); Mean Corpuscular Hemoglobin 33.6 pg (26-34); Mean Corpuscular Volume 98.2 fl (80-100); Mean Platelet Volume 11.1 fl (7.4-10.4); Monocytes Absolute Auto 1.1 K/mm3 (0.1-0.6); Monocytes Percent Auto 10.9 % (2.6-8.5); Neutrophils Absolute Auto 7.8 K/mm3 (1.3-6.7); Neutrophils Percent Auto 74.5 % (45.5-73.1); Platelet Count Result 221 k/mm3 (150-375); Red Blood Count 4.43 M/mm3 (4.6-6.20); Red Cell Distribution Width 12.3 % (11.5-14.5); White Blood Count 10.4 K/mm3 (4.5-10.0)
[2021-07-31 11:29] LABS: Erythrocyte Sedimentation Rate 13 mm/hr (0-20)
[2021-07-31 12:29] LABS: Free T4 Free Thyroxine 1.21 ng/mL (0.78-2.19)
[2021-07-31 14:29] LABS: Anion Gap 6 mmol/L (8-16); Blood Urea Nitrogen 13 mg/dL (9-20); CRP 0.6 mg/dL (<1.0); Calcium 10.1 mg/dL (8.4-10.2); Carbon Dioxide 30 mmol/L (22-30); Chloride 100 mmol/L (98-107); Estimated Glomerular Filt Rate 53; Glucose 114 mg/dL (65-110); Potassium 4.2 mmol/L (3.4-5.0); Sodium 136 mmol/L (137-145)
== END 2021-07-31 10:33 | disposition home or self-care (01) ==
PROVIDERS: PCP Internal Medicine; Visit Provider Internal Medicine
DX: M35.3 Polymyalgia rheumatica (principal); I10 Essential (primary) hypertension; Z79.899 Other long term (current) drug therapy; R94.6 Abnormal results of thyroid function studies
CPT/HCPCS: 36415; 80048; 84439; 84443; 85025; 85652; 86140

== ENCOUNTER 2021-07-31 11:10 | Observation (INO) | payer MEDICARE, SELFPAY ==
[2021-07-31] VITALS (11 sets, daily range): BP systolic 90–152; BP diastolic 72–101; PULSE 40–103; RESP 18–26; TEMP 36.3–37.1; O2SAT 95–100; BMI 21.9
--- NOTE | ~2021-07-31 | CT_ITS ---
EXAMINATION: CT brain wo con EXAM DATE: 07/31/2021 14:42 INDICATION: Syncope. Fall. TECHNIQUE: Spiral CT of the head was performed without contrast. Axial, coronal and sagittal images were reviewed. The dose-length product (DLP) for this examination was 681.00 mGy-cm. The exposure w as tailored according to patient size, and iterative reconstruction (ASIR) was used as additional dos e reduction technique. Comparison is made to prior examination from 12/31/2020. FINDINGS: There is no acute intraparenchymal hemorrhage. No evidence of intraparenchymal brain mass lesion. No evidence of acute infarction. Please note that initial head CT has limited sensitivity f or small or acute infarctions. There is mild periventricular and subcortical hypodensity, nonspecific but probably related to small vessel ischemic disease. There is moderate prominence of the sulci a nd ventricles related to cerebral atrophy. There is intracranial carotid arteriosclerosis. There a re no extra-axial collections. There is no mass effect or midline shift. Patient has had bilateral ocular lens surgery. Soft tissue is unremarkable. The visualized sinuses and mastoid air cells are well aerated. IMPRESSION: 1. No acute intracranial findings. 2. Chronic age related findings. Reviewed, dictated and finalized at location G. N RESOURCES DEPARTMENT SUPERVISOR
--- NOTE | ~2021-07-31 | XR_ITS ---
EXAMINATION: XR chest 1V portable EXAM DATE: 07/31/2021 15:49 INDICATION: Syncope At Hospital Visiting Dr, CAD, HTN, aortic Aneurysm. TECHNIQUE: Portable AP frontal chest x-ray was obtained. Comparison is made to prior examination from 12/31/2020. FINDINGS: Sternotomy wires are present without findings to suggest sternal dehiscence. Mild cardiomeg montrell. Mild hyperinflation. Small amount of right basilar airspace disease. Left upper lobe granulomas. No pneumothorax or pleural effusion. There are cholecystectomy clips. IMPRESSION: 1. Small amount of nonspecific right basilar pneumonitis or atelectasis. 2. Mild cardiomegaly. Reviewed, dictated and finalized at location G. WATCH
--- NOTE | 2021-07-31 11:40 | ECG_ITS ---
Measurements Intervals [place] Rate: 61 P: 46 NM: 205 QRS: -7 QRSD: 97 T: 64 QT: 349 QTc: 352 Interpretive Statements SINUS RHYTHM VENTRICULAR TRIGEMINY DELAYED PRECORDIAL R/S TRANSITION LEFT VENTRICULAR HYPERTROPHY WITH ST-T CHANGE BASELINE ARTIFACT- I, II, III, AVR ABNORMAL ECG Electronically Signed On 07-31-2021 11:52:39 BICYCLE MESSENGER by Aldo Linton D.O.
--- NOTE | 2021-07-31 13:45 | ECG_ITS ---
Measurements Intervals [place] Rate: 71 P: 2 UT: 163 QRS: -24 QRSD: 107 T: 58 QT: 436 QTc: 476 Interpretive Statements SINUS BRADYCARDIA SUPRAVENTRICULAR BIGEMINY AND VENTRICULAR PREMATURE COMPLEX LEFT VENTRICULAR HYPERTROPHY AND ST-T CHANGE BASELINE ARTIFACT- I, II, III, AVR, AVL, AVF ABNORMAL ECG Electronically Signed On 07-31-2021 14:03:08 COOK HELPER JUICE by Aldo Linton D.O.
[2021-07-31 14:11] LABS: Basophils Absolute Auto 0.1 K/mm3 (0.0-0.1); Basophils Percent Auto 0.8 % (0.2-1.2); Eosinophils Absolute Auto 0.1 K/mm3 (0-0.3); Eosinophils Percent Auto 0.4 % (0-4.4); Hematocrit 42.2 % (42.0-52.0); Hemoglobin 14.5 g/dL (14.0-18.0); Immature Granulocyte Absolute 0.05 K/mm3 (0.00-0.031); Immature Granulocyte Percent A 0.4 % (0-0.5); Lymphocytes Absolute Auto 1.04 K/mm3 (0.9-3.2); Lymphocytes Percent Auto 8.7 % (18.3-44.2); Mean Corpuscular HGB Conc 34.4 g/dl (32-36); Mean Corpuscular Hemoglobin 33.3 pg (26-34); Mean Corpuscular Volume 96.8 fl (80-100); Mean Platelet Volume 10.9 fl (7.4-10.4); Monocytes Absolute Auto 1.1 K/mm3 (0.1-0.6); Monocytes Percent Auto 9.5 % (2.6-8.5); Neutrophils Absolute Auto 9.6 K/mm3 (1.3-6.7); Neutrophils Percent Auto 80.2 % (45.5-73.1); Platelet Count Result 201 k/mm3 (150-375); Red Blood Count 4.36 M/mm3 (4.6-6.20); Red Cell Distribution Width 12.3 % (11.5-14.5)
[2021-07-31 14:20] LABS: Alanine Aminotransferase 12 U/L (4-50); Albumin Level 3.9 g/dL (3.5-5.1); Alkaline Phosphatase 122 U/L (38-126); Anion Gap 7 mmol/L (8-16); Aspartate Amino Transferase 23 U/L (17-59); Blood Urea Nitrogen 14 mg/dL (9-20); Calcium 9.9 mg/dL (8.4-10.2); Carbon Dioxide 25 mmol/L (22-30); Chloride 102 mmol/L (98-107); Estimated CRCL calculation 54 ml/min; Estimated Glomerular Filt Rate > 60; Glucose 107 mg/dL (65-110); Potassium 4.3 mmol/L (3.4-5.0); Sodium 134 mmol/L (137-145)
--- NOTE | 2021-07-31 14:32 | ED.GENADULT ---
HPI - General Adult General Chief complaint: Fall Stated complaint: fall Time Seen by Provider: 07/31/21 14:06 Source: patient and family Mode of arrival: ambulatory Limitations: no limitations History of Present Illness HPI narrative: Patient is 80 years old white male was wolking in the hospital with his going to his family physician office for regular checkup, developed generalized diaphoresis then fell to the ground unresponsive for few seconds patient was trying to break his fall by his right forearm. Patient denies any head injury, neck pain, chest pain, shortness of breath, palpitation or any other injuries. Patient is fully vaccinated COVID-19. Patient denies any urine or stool incontinence. Related Data Home Medications Medication Instructions Recorded Confirmed carvedilol 3.125 mg tablet 3.125 mg PO Q12H 06/04/19 07/26/21 spironolactone 25 mg tablet 25 mg PO DAILY 06/04/19 07/26/21 atorvastatin 40 mg PO QAM 12/31/20 07/26/21 donepezil 10 mg PO QAM 12/31/20 07/26/21 duloxetine 20 mg PO HS 12/31/20 07/26/21 cyanocobalamin (vitamin B-12) 1,000 mcg PO DAILY 05/10/21 07/26/21 1,000 mcg tablet aspirin 81 mg tablet,delayed 81 mg PO QAM 06/19/21 07/26/21 release citalopram 20 mg QAM 07/04/21 07/26/21 folic acid 1 mg QAM 07/04/21 07/26/21 lisinopril 2.5 mg PO QAM 07/04/21 07/26/21 rabeprazole 20 mg PO QAM 07/04/21 07/26/21 Allergies Allergy/AdvReac Type Severity Reaction Status Date / Time No Known Allergies Allergy Verified 07/26/21 09:44 Review of Systems Review of Systems: CONSTITUTIONAL: Denies fever, chills, or sweats. EYES: Denies visual changes, redness, or discharge. ENT: Denies rhinorrhea, congestion, sore throat, or otalgia. CARDIOVASCULAR: Denies chest pain, palpitations, or edema. RESPIRATORY: Denies cough or dyspnea. GASTROINTESTINAL: Denies abdominal pain, nausea, vomiting, or diarrhea. GENITOURINARY: Denies dysuria or hematuria. SKIN: Denies rash or itching. MUSCULOSKELETAL: Denies back pain, joint pain, or myalgia. NEUROLOGIC: Denies headache, numbness, or weakness. PSYCHIATRIC: Denies anxiety or depression. [facility] Past Medical History Medical History AB (asthmatic bronchitis) Abnormal thyroid function test Anemia Ascending aortic aneurysm ASHD (arteriosclerotic heart disease) BMI 20.0-20.9, adult BMI 21.0-21.9, adult BMI 22.0-22.9, adult Bradycardia Bronchitis CAD (coronary artery disease) Cardiac arrhythmia Chronic low back pain Cognitive dysfunction Debility Depressed mood Effusion, right knee Elevated homocysteine Fall Fatigue Follow up Follow up GERD (gastroesophageal reflux disease) Groin pain Hearing loss History of hemochromatosis HTN (hypertension), malignant Hyperlipidemia Hypomagnesemia Impaired functional mobility, balance, gait, and endurance Multiple joint pain Plantar fasciitis Post herpetic neuralgia Pulmonary granuloma Rhinorrhea Shingles Unexplained weight loss URI (upper respiratory infection) Ventricular bigeminy Surgical History Surgical History H/O right inguinal hernia repair 07/11/21 History of colon resection S/P AVR (aortic valve replacement) Family History Family History Sibling Hypertension Family history of malignant neoplasm of bone Father Family history of emphysema Family history of tuberculosis Family history of malignant neoplasm Mother Hypertension Family history of Parkinson's disease Social History Social History Social History: The patient stated that he is and has 2 children. The patient stated that he is a full code. And he has a male friend that is does needed to be a durable power staff attorney but could remember same at this point. The patient stated that he lives with a female friend. The patient tel
[2021-07-31 15:03] LABS: Add Urine Microscopic? YES; Appearance Urine Clear (Clear); Bilirubin Urine 2+ (Negative); Blood Urine Negative (Negative); Color Urine Amber (Yellow); Glucose Urine UA Negative (Negative); Ketones Urine 1+ mg/dL (Negative); Leukocyte Esterase Ur Negative LEU/UL (Negative); Nitrate Urine Negative (Negative); Protein Urine 2+ mg/dL (Negative); Specific Grav Ur >= 1.030 (1.001-1.035); Urobilinogen Urine 0.2 mg/dL (<2.0); pH Urine 5.5 (5.0-9.0)
[2021-07-31 15:32] LABS: Mucus Urine Heavy /lpf
[2021-07-31 15:52] LABS: Creatine Kinase 27 U/L (55-170)
--- NOTE | 2021-07-31 16:11 | ECG_ITS ---
Measurements Intervals [place] Rate: 79 P: [place]: 0 QRS: -28 QRSD: 96 T: 152 QT: 411 QTc: 472 Interpretive Statements SINUS RHYTHM VENTRICULAR COUPLET AND ATRIAL AND VENTRICULAR PREMATURE COMPLEXES LEFT VENTRICULAR HYPERTROPHY WITH ST-T CHANGE BASELINE ARTIFACT- I, II, III, AVL ABNORMAL ECG Electronically Signed On 07-31-2021 18:20:21 PAVING MACHINE OPERATOR by Aldo Linton D.O.
--- NOTE | 2021-07-31 19:57 | PM.IMHP ---
H&P: HPI History of Present Illness Date/Time: 07/31/21 19:57 Chief Complaint: Syncope Narrative: This is a 80-year-old male with past medical history significant for coronary artery disease, congestive heart failure, hypertension, GERD, COPD, ascending aortic aneurysm, chronic back pain, dementia. Patient was today visiting the hospital for a follow-up appointment with his doctor when he had a syncopal episode, patient states that he has been in his usual state of health, denies any chest pain, shortness of breath, cough, leg swelling, calves pain, no dizziness, no lightheadedness, no vertigo, no fevers, no rigors, no chills, no incontinence of bowel or bladder. Preliminary workup was significant for ECG with frequent PVCs. At the time of my visit patient denied any discomfort. A CT of the head did not show any acute intracranial abnormalities, a chest x-ray was clear. Decision has been made to place the patient in observation for further evaluation management and treatment. Review of Systems Review of Systems: Syncopal episode. Constitutional: Constitutional: Denies chills, Denies excessive sweating, Denies fatigue, Denies fever(s), Denies frequent falls, Denies lethargy, Denies malaise and Denies weakness Eyes: Eyes: Denies change in vision, Denies diplopia, Denies floaters, Denies loss of vision and Denies spots in vision ENT: Denies dysphagia, Denies vertigo, Denies dizziness, Denies nasal congestion, Denies nasal discharge, Denies nasal obstruction and Denies odynophagia Cardiovascular: Cardiovascular: Denies chest pain, Denies diaphoresis, Denies syncope, Denies pedal edema, Denies irregular heart rhythm, Denies claudication, Denies leg edema, Denies radiating jaw, neck or arm pain, Denies palpitations, Denies dyspnea, Denies dyspnea on exertion and Denies orthopnea Respiratory: Respiratory: Denies cough, Denies excessive phlegm production, Denies dyspnea and Denies wheezing Gastrointestinal: Gastrointestinal: Denies abdominal pain, Denies GI cramping, Denies dyspepsia, Denies heartburn, Denies diarrhea, Denies nausea and Denies vomiting Genitourinary: Genitourinary: Denies dysuria Musculoskeletal: Musculoskeletal: Reports back pain, Denies myalgias and Denies arthralgias Integumentary/Breasts: Skin/Breast: Denies rash Neurologic: Denies vertigo, Denies focal weakness and Denies Sensory deficit (Neuro) Psychiatric: Psychiatric: Reports no additional psychiatric complaints and Reports as per HPI Endocrine: Endocrine: Denies cold intolerance, Denies excessive sweating, Denies flushing, Denies heat intolerance, Denies polyphagia, Denies polydipsia, Denies polyuria and Denies palpitations Hematologic/Lymphatic: Hematologic/Lymphatic: Reports no additional hematologic/lymphatic complaints and Reports as per HPI Allergic/Immunologic: Allergic/Immunologic: Reports no additional allergic/immunologic complaints and Reports as per HPI PMFSH Past Medical History Medical History AB (asthmatic bronchitis) Abnormal thyroid function test Anemia Ascending aortic aneurysm ASHD (arteriosclerotic heart disease) BMI 20.0-20.9, adult BMI 21.0-21.9, adult BMI 22.0-22.9, adult Bradycardia Bronchitis CAD (coronary artery disease) Cardiac arrhythmia Chronic low back pain Cognitive dysfunction Debility Depressed mood Effusion, right knee Elevated homocysteine Fall Fatigue Follow up Follow up GERD (gastroesophageal reflux disease) Groin pain Hearing loss History of hemochromatosis HTN (hypertension), malignant Hyperlipidemia Hypomagnesemia Impaired functional mobility, balance, gait, and endurance Multiple joint pain Plantar fasciitis Post herpetic neuralgia Pulmonary granuloma Rhinorrhea Shingles Unexplained weight loss URI (upper respiratory infection) Ventricular bigeminy Surgical History Surgical History H/O right inguinal h
[2021-07-31 20:03] LABS: Troponin I < 0.012 ng/mL (0.000-0.034)
--- NOTE | 2021-07-31 20:43 | ADMGEN ---
This patient, Marcel Awad, was admitted to IMU Room 206-02 at 2034. Patient/family oriented to hospital policies and general routines including ID bracelet, bed and alarms, visiting hours, pain management, procedures, bathroom and other care routines, personal items, smoking policy, room service/diet, and visiting hours. Information on how to activate the Rapid Response Team has been discussed. Patient/Family are encouraged to report perceived risks to care and to ask questions if they do not understand what they are told or what they should do.
[2021-07-31 22:29] LABS: Troponin I 0.017 ng/mL (0.000-0.034)
[2021-08-01] VITALS (15 sets, daily range): BP systolic 89–133; BP diastolic 66–88; PULSE 62–99; RESP 16–18; TEMP 36.6–37.1; O2SAT 95–99
--- NOTE | 2021-08-01 | ECHO_ITS ---
Patient Info Name: Marcel Awad Age: 80 years : 1940 Gender: Male Ht: 74 in Wt: 170 lbs BSA: 2.00 m2 HR: 73 bpm BP: 133 / 66 mmHg Heart Rhythm: Sinus Rhythm Technical Quality: Fair Exam Date: 08/01/2021 8:24 AM Exam Location: [facility] Patient Status: Outpatient Admit Date: 07/31/2021 Staff Ordering Physician: Manuela Durand MD Geothermal Technician: Sabina Melo RDCS Attending Provider: Sharri Vargas MD Referring Physician: Kizzy ERIC; Exam Type: CA echo doppler color flow Study Info Indications - syncope Complete two-dimensional, color flow and Doppler transthoracic echocardiogram is performed. Summary 1. Complete two-dimensional, color flow and Doppler transthoracic echocardiogram is performed. 2. Left ventricular chamber dimension is normal. 3. Left ventricular systolic function is normal, estimated at 60-65%. 4. There is moderate asymmetric septal increased left ventricular wall thickness. 5. The left ventricular diastolic function is grade I diastolic dysfunction. 6. The basal inferior wall, mid inferior wall, basal inferolateral wall, and mid inferolateral wall are hypokinetic. 7. Left atrial chamber dimension is mildly enlarged. 8. There is severe aortic valve stenosis with a peak velocity of 315 cm/s, mean gradient of 17 mmHg, and aortic valve area of 0.8 cm2. 9. There is moderate aortic valve calcification. 10. The mitral valve has posterior prolapse. 11. There is mild to moderate mitral valve regurgitation. 12. There is mild tricuspid valve regurgitation. 13. The aortic root size at the sinus of Valsalva is moderately dilated. Left Ventricle Left ventricular chamber dimension is normal. Left ventricular systolic function is normal, estimated at 60-65%. There is moderate asymmetric septal increased left ventricular wall thickness. The left ventricular diastolic function is grade I diastolic dysfunction. The basal inferior wall, mid inferior wall, basal inferolateral wall, and mid inferolateral wall are hypokinetic. All other garza appear normal. Right Ventricle Right ventricular chamber dimension is normal. Right ventricular systolic function is normal. Left Atria Left atrial chamber dimension is mildly enlarged. Right Atria Right atrial chamber dimension is normal. Atrial Septum Intact interatrial septum visualized by color flow imaging. Aortic Valve The aortic valve is not well visualized. There is severe aortic valve stenosis with a peak velocity of 315 cm/s, mean gradient of 17 mmHg, and aortic valve area of 0.8 cm2. There is trace aortic valve regurgitation. There is moderate aortic valve calcification. Pulmonic Valve The pulmonic valve is normal. There is no pulmonic valve stenosis. There is trace pulmonic regurgitation. Mitral Valve The mitral valve has posterior prolapse. There is no mitral valve stenosis. There is mild to moderate mitral valve regurgitation. Tricuspid Valve The tricuspid valve leaflets are normal. There is no significant tricuspid valve stenosis. There is mild tricuspid valve regurgitation. No pulmonary hypertension, estimated pulmonary arterial systolic pressure is 33 mmHg. Pericardium/Pleural The pericardium appears normal. There is no pericardial effusion. Inferior Vena Cava Normal inferior vena cava with >50% collapse upon inspiration consistent with normal right atrial pressure, 8 mmHg. Aorta The aortic root size at the sinus of Valsalva is m
[2021-08-01] MEDS: carvediloL 3.125 MG TABLET PO ×2 (01:34→09:02)
[2021-08-01] MEDS: DULoxetine HCL 20 MG CAPSULE.DR PO ×2 (01:35→20:26)
[2021-08-01] MEDS: GABAPENTIN 100 MG CAPSULE PO ×3 (01:35→17:17)
[2021-08-01] MEDS: CITALOPRAM HYDROBROMIDE 20 MG TABLET BY MOUTH (09:02)
[2021-08-01] MEDS: ASPIRIN 81 MG ENTERIC TABLET PO (09:02)
[2021-08-01] MEDS: DONEPEZIL HCL 10 MG TABLET PO (09:02)
[2021-08-01] MEDS: PANTOPRAZOLE 40 MG TABLET PO (09:02)
[2021-08-01] MEDS: CYANOCOBALAMIN 1,000 MCG TABLET 1000 MCG PO (09:02)
[2021-08-01] MEDS: SPIRONOLACTONE 25 MG TABLET PO (09:02)
[2021-08-01] MEDS: AZELASTINE HCL NASAL 0.1% 137 MCG/SPR 30 ML BTL 1 SPRAY NASAL ×2 (09:02→20:21)
[2021-08-01] MEDS: ATORVASTATIN 40 MG TABLET PO (09:02)
[2021-08-01] MEDS: lisinopriL 2.5 MG TABLET PO (09:02)
[2021-08-01] MEDS: FOLIC ACID 1 MG TABLET BY MOUTH (09:02)
--- NOTE | 2021-08-01 10:11 | PM.IMPN ---
Progress Note: A&P Assessment and Plan (1) Syncope and collapse: Code(s): R55 - Syncope and collapse Status: Acute Assessment and Plan: Syncope and collapse, likely secondary to hypotension. Systolic blood pressure in the 90s at presentation improved after 1 L IV fluid administered. Patient is on a triple regimen with lisinopril, spironolactone and carvedilol that we will hold. On today vital signs blood pressure 107/85. Continue to hold blood pressure medication unless blood pressure is equal or higher than 130/80. Given the patient age a more conservative blood pressure goal could be some the lower blood pressure diet he can tolerate without having hypotensive symptoms. Patient denies recent nausea vomiting or diarrhea. He was orthostatic on admission. EKG shows atrial fibrillation with numerous PVCs. At the time of my encounter rate is relatively control in the 70-90 range. On telemetry reviewed, patient is in controlled atrial fibrillation with some aberrancy noted. Echocardiogram to be performed today. Cardiology was consulted. Appreciate their recommendations. Continue close telemetry monitoring. (2) Ventricular trigeminy: Code(s): I49.8 - Other specified cardiac arrhythmias Status: Acute Assessment and Plan: Hold beta-christiano Repeat BMP and Mag this morning. Continue to monitor (3) Hypertension: Code(s): I10 - Essential (primary) hypertension Status: Acute Assessment and Plan: Hold home meds Hold for systolic equal or less than 130. (4) S/P AVR (aortic valve replacement): Code(s): Z95.2 - Presence of prosthetic heart valve Status: Acute Assessment and Plan: Continue to monitor (5) CAD (coronary artery disease): Qualifiers: Associated angina: with unspecified angina Coronary Disease-Associated Artery/Lesion type: unspecified vessel or lesion type [place] vs. transplanted heart: [place] heart Qualified Code(s): I25.119 - Atherosclerotic heart disease of [place] coronary artery with unspecified angina pectoris Code(s): I25.10 - Atherosclerotic heart disease of [place] coronary artery without angina pectoris Status: Acute Assessment and Plan: Chest pain-free Continue atorvastatin Continue aspirin Hold cardioprotective medication in the setting of symptomatic hypotension. (6) Cognitive dysfunction: Code(s): F09 - Unspecified mental disorder due to known physiological condition Status: Acute Assessment and Plan: Mild cognitive decline versus early sign of dementia. Continue donepezil (7) Chronic low back pain: Qualifiers: Back pain laterality: unspecified Sciatica presence: unspecified whether sciatica present Qualified Code(s): M54.5 - Low back pain; G89.29 - Other chronic pain Code(s): M54.5 - Low back pain; G89.29 - Other chronic pain Status: Acute Assessment and Plan: Lidoderm patch p.r.n.. Tylenol p.r.n. (8) GERD (gastroesophageal reflux disease): Code(s): K21.9 - Gastro-esophageal reflux disease without esophagitis Status: Acute Assessment and Plan: Continue PPI Subjective Date/time seen: 08/01/21 10:11 S: Patient was seen and examined at the bedside. He is in very good spirits. He denies any complaints. Review of Systems Constitutional: Constitutional: Denies chills, Denies excessive sweating, Denies fatigue, Denies fever(s), Denies frequent falls, Denies lethargy, Denies malaise and Denies weakness Eyes: Eyes: Denies change in vision, Denies diplopia, Denies floaters, Denies loss of vision and Denies spots in vision ENT: Denies dysphagia, Denies vertigo, Denies dizziness, Denies nasal congestion, Denies nasal discharge, Denies nasal obstruction and Denies odynophagia Cardiovascular: Cardiovascular: Denies chest pain, Denies diaphoresis, Denies syncope, Denies pedal edema, Denies irregular heart rhythm, Denies claudicatio
[2021-08-01 11:06] LABS: Anion Gap 9 mmol/L (8-16); Blood Urea Nitrogen 13 mg/dL (9-20); Calcium 9.8 mg/dL (8.4-10.2); Carbon Dioxide 26 mmol/L (22-30); Chloride 102 mmol/L (98-107); Estimated CRCL calculation 54 ml/min; Estimated Glomerular Filt Rate > 60; Glucose 130 mg/dL (65-110); Magnesium 1.1 mg/dL (1.6-2.3); Potassium 3.8 mmol/L (3.4-5.0); Sodium 137 mmol/L (137-145)
[2021-08-01] MEDS: MAGNESIUM CHLORIDE 64 MG TABLET PO ×2 (12:28→17:17)
--- NOTE | 2021-08-01 12:41 | PM.CNCAR ---
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 He has a 29 mm magna pericardial valve that he had implanted in 2016. He had that done at the same time as he had his aortic root replaced. It is highly unlikely that this 5-year-old bioprosthetic valve is significantly stenotic however the Doppler information on today's echo suggests that it might be. I did look at the exam myself and in the parasternal short axis view it does appear that the leaflets exhibit fairly good excursion and the valve on physical exam does not down to stenotic. Most likely his episode of syncope was related to hypotension and orthostasis. For that reason I would recommend stopping his lisinopril carvedilol and spironolactone since his LV systolic function looks normal. I will replace them with a modest dose of metoprolol because of the ventricular ectopic activity. I would like to arrange for a transesophageal echo to be done tomorrow to complete the evaluation as to the functional status of his aortic valve bioprosthesis. Thank you for asking me to see this very nice man in consultation Reji Pierre MD [facility] History of Present Illness History of Present Illness Consult date/time: 08/01/21 12:41 Reason For Visit: syncope, ventricular trigeminy Narrative: This is a 80-year-old man who I know very well with a history of valvular heart disease and mild coronary disease admitted to the hospital yesterday after experiencing syncopal episode at home. The patient was in his usual state of fairly good health. He states he was here at the hospital yesterday having an appointment with his primary physician. He finished the appointment was walking through the [place] getting ready to leave and states that he had a syncopal episode in the hallway and fell to the floor. He remembers feeling a bit sweaty or diaphoretic before losing consciousness and falling to the floor but he does believe he briefly lost consciousness. He was brought to the emergency room evaluated and admitted to the hospital. On admission he was noted to be hypotensive and orthostatic. He had been on small doses of carvedilol lisinopril and spironolactone. He feels fine at this time and is asymptomatic. His ECGs and telemetry demonstrates sinus rhythm with PVCs commonly in a pattern of bigeminy also with some ventricular couplets occasionally. Previous to this event he has never had a syncopal episode. He has a history of very mild coronary disease according to my records he was known to have a a total occlusion of a small posterolateral our distal RV branch which has never resulted in any anginal symptomatology nor has it resulted in any abnormalities on nuclear stress testing in the past. Review of Systems Constitutional: Constitutional: Reports no additional constitutional complaints Eyes: Eyes: Reports no additional eye complaints ENT: Reports system reviewed and no additional complaints, except as documented Cardiovascular: Cardiovascular: Reports as per HPI Respiratory: Respiratory: Reports no additional respiratory complaints Gastrointestinal: Gastrointestinal: Reports no additional gastrointestinal complaints Musculoskeletal: Musculoskeletal: Reports no additional musculoskeletal complaints Neurologic: Reports as per HPI Endocrine: Endocrine: Reports no additional endocrine complaints Hematologic/Lymphatic: Hematologic/Lymphatic: Reports no additional hematologic/lymphatic complaints Allergic/Immunologic: Allergic/Immunologic: Reports no additional allergic/immunologic complaints [facility] Past Medical History Medical History AB (asthmatic bronchitis) Abnormal thyroid function test Anemia Ascending aortic aneurysm ASHD (arteriosclerotic heart disease) BMI 20.0-20.9, adult BMI 21.0-21.9, adult BMI 22.0-22.9, adult Bradycardia Bronchitis CAD (coronary artery dis
[2021-08-01] MEDS: traMADol HCL (*CRX) 50 MG TABLET PO (20:26)
[2021-08-02] VITALS (22 sets, daily range): BP systolic 116–171; BP diastolic 62–110; PULSE 56–92; RESP 16–22; TEMP 36.2–37.1; O2SAT 96–100
[2021-08-02] MEDS: AZELASTINE HCL NASAL 0.1% 137 MCG/SPR 30 ML BTL 1 SPRAY NASAL ×2 (08:49→20:30)
[2021-08-02] MEDS: ASPIRIN 81 MG ENTERIC TABLET PO (08:53)
[2021-08-02] MEDS: CITALOPRAM HYDROBROMIDE 20 MG TABLET BY MOUTH (08:53)
[2021-08-02] MEDS: DONEPEZIL HCL 10 MG TABLET PO (08:53)
[2021-08-02] MEDS: CYANOCOBALAMIN 1,000 MCG TABLET 1000 MCG PO (08:53)
[2021-08-02] MEDS: METOPROLOL SUCCINATE EXT REL 25 MG TABCR PO (08:53)
[2021-08-02] MEDS: MAGNESIUM CHLORIDE 64 MG TABLET PO ×2 (08:53→17:26)
[2021-08-02] MEDS: GABAPENTIN 100 MG CAPSULE PO ×3 (08:53→17:26)
[2021-08-02] MEDS: FOLIC ACID 1 MG TABLET BY MOUTH (08:53)
[2021-08-02] MEDS: PANTOPRAZOLE 40 MG TABLET PO (08:54)
[2021-08-02] MEDS: LIDOCAINE 5% PATCH 1 PATCH TRANSDERM (08:54)
[2021-08-02] MEDS: ATORVASTATIN 40 MG TABLET PO (08:54)
--- NOTE | 2021-08-02 09:49 | PM.IMPN ---
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 He underwent a 29 mm magna pericardial valve implantation in 2015. Echocardiogram reveals severe aortic stenosis of the bioprosthetic valve. There is severe aortic valve stenosis with a peak velocity of 315 cm/s, mean gradient of 17 mmHg, and aortic valve area of 0.8 cm2. Plan for LICO. Keep NPO after midnight. (2) Syncope and collapse: Code(s): R55 - Syncope and collapse Status: Acute Assessment and Plan: Syncope and collapse, likely secondary to hypotension. Systolic blood pressure in the 90s at presentation improved after 1 L IV fluid administered. Patient is on a triple regimen with lisinopril, spironolactone and carvedilol that was discontinued. He was started on a modest dose of metoprolol due to ventricular ectopy.. On today vital signs blood pressure is in the 124/90 8-120 7/87 range. Continue to hold blood pressure medication unless blood pressure is equal or higher than 130/80. Given the patient age a more conservative blood pressure goal could be some the lower blood pressure diet he can tolerate without having hypotensive symptoms. Patient denies recent dizziness or light headedness.. He was orthostatic on admission. EKG shows atrial fibrillation with bigeminy. At the time of my encounter rate is relatively control in the 70-90 range. On telemetry reviewed, patient is in controlled atrial fibrillation with some aberrancy noted. Plan for transesophageal echocardiogram. (3) Ventricular trigeminy: Code(s): I49.8 - Other specified cardiac arrhythmias Status: Acute Assessment and Plan: Continue metoprolol succinate 25 mg p.o. daily. Hypo magnesemia was supplemented. Repeat potassium and magnesium levels today. (4) Hypertension: Code(s): I10 - Essential (primary) hypertension Status: Acute Assessment and Plan: Hold home meds Hold for systolic equal or less than 130. (5) S/P AVR (aortic valve replacement): Code(s): Z95.2 - Presence of prosthetic heart valve Status: Acute Assessment and Plan: Currently diagnosed with severe aortic stenosis. Plan 40. Continue to monitor (6) CAD (coronary artery disease): Qualifiers: Coronary Disease-Associated Artery/Lesion type: unspecified vessel or lesion type [place] vs. transplanted heart: [place] heart Associated angina: with unspecified angina Qualified Code(s): I25.119 - Atherosclerotic heart disease of [place] coronary artery with unspecified angina pectoris Code(s): I25.10 - Atherosclerotic heart disease of [place] coronary artery without angina pectoris Status: Acute Assessment and Plan: Chest pain-free; there is no significant atherosclerotic burden per Cardiology note. Continue atorvastatin Continue aspirin Continue metoprolol succinate 25 mg p.o. daily. (7) Cognitive dysfunction: Code(s): F09 - Unspecified mental disorder due to known physiological condition Status: Acute Assessment and Plan: Mild cognitive decline versus early sign of dementia. Continue donepezil (8) Chronic low back pain: Qualifiers: Back pain laterality: unspecified Sciatica presence: unspecified whether sciatica present Qualified Code(s): M54.5 - Low back pain; G89.29 - Other chronic pain Code(s): M54.5 - Low back pain; G89.29 - Other chronic pain Status: Acute Assessment and Plan: Lidoderm patch p.r.n.. Tylenol p.r.n. (9) GERD (gastroesophageal reflux disease): Code(s): K21.9 - Gastro-esophageal reflux disease without esophagitis Status: Acute Assessment and Plan: Continue PPI Subjective Date/time seen: 08/02/21 09:49 Narrative: his is a 80-year-old male with
--- NOTE | 2021-08-02 10:14 | WPDHPUPDATE1 ---
History and Physical Update Update Date/Time: 08/02/21 10:14 History and Physical has been reviewed, including an updated exam of the patient. There are NO changes in the patient's condition. Risks, benefits, and alternatives have been discussed and questions answered. Patient agrees to proceed with procedure.
--- NOTE | 2021-08-02 10:14 | WPDMODSED ---
Moderate Sedation Note-Pt Data Patient Data Allergies Allergy/AdvReac Type Severity Reaction Status Date / Time No Known Allergies Allergy Verified 07/26/21 09:44 Home Medications Medication Instructions Recorded Confirmed Type carvedilol 3.125 mg tablet 3.125 mg PO Q12H 06/04/19 07/31/21 History spironolactone 25 mg tablet 25 mg PO DAILY 06/04/19 07/31/21 History atorvastatin 40 mg PO QAM 12/31/20 07/31/21 History donepezil 10 mg PO QAM 12/31/20 07/31/21 History duloxetine 20 mg PO HS 12/31/20 07/31/21 History gabapentin 100 mg capsule 100 mg PO TID #90 cap 04/12/21 07/31/21 Rx magnesium chloride 71.5 mg 71.5 mg PO BID #60 tablet 04/16/21 07/31/21 Rx (magnesium chloride) tablet,delayed release cyanocobalamin (vitamin B-12) 1,000 mcg PO DAILY 05/10/21 07/31/21 History 1,000 mcg tablet aspirin 81 mg tablet,delayed 81 mg PO QAM 06/19/21 07/31/21 History release citalopram 20 mg QAM 07/04/21 07/31/21 History folic acid 1 mg QAM 07/04/21 07/31/21 History lisinopril 2.5 mg PO QAM 07/04/21 07/31/21 History rabeprazole 20 mg PO QAM 07/04/21 07/31/21 History ibuprofen 600 mg PO Q6H PRN #14 tablet 07/11/21 07/31/21 Rx tramadol 50 mg PO Q6H PRN #10 tablet 07/11/21 07/31/21 Rx azelastine 137 mcg (0.1 %) nasal 137 mcg INTRANASAL Q12H #30 ml 07/26/21 07/31/21 Rx spray aerosol Current Medications: Active Medications Aspirin (Aspirin 81 Mg Enteric Tablet) 81 mg PO [facility] Last Admin: 08/02/21 08:53 Dose: 81 mg Documented by: Atorvastatin Calcium (Atorvastatin 40 Mg Tablet) 40 mg PO [facility] Last Admin: 08/02/21 08:54 Dose: 40 mg Documented by: Azelastine HCl (Azelastine Hcl Nasal 0.1% 137 Mcg/Spr 30 Ml Btl) 1 spray NASAL Q12HR [facility] Last Admin: 08/02/21 08:49 Dose: 1 spray Documented by: Citalopram Hydrobromide (Citalopram Hydrobromide 20 Mg Tablet) 20 mg BY MOUTH [facility] Last Admin: 08/02/21 08:53 Dose: 20 mg Documented by: Cyanocobalamin (Cyanocobalamin 1,000 Mcg Tablet) 1,000 mcg PO DAILY [facility] Last Admin: 08/02/21 08:53 Dose: 1,000 mcg Documented by: Donepezil HCl (Donepezil Hcl 10 Mg Tablet) 10 mg PO [facility] Last Admin: 08/02/21 08:53 Dose: 10 mg Documented by: Duloxetine HCl (Duloxetine Hcl 20 Mg Capsule.Dr) 20 mg PO [facility] Last Admin: 08/01/21 20:26 Dose: 20 mg Documented by: Folic Acid (Folic Acid 1 Mg Tablet) 1 mg BY MOUTH [facility] Last Admin: 08/02/21 08:53 Dose: 1 mg Documented by: Gabapentin (Gabapentin 100 Mg Capsule) 100 mg PO TID [facility] Last Admin: 08/02/21 08:53 Dose: 100 mg Documented by: Lidocaine (Lidocaine 5% Patch) 1 patch TRANSDERM DAILY [facility] Last Admin: 08/02/21 08:54 Dose: 1 patch Documented by: Magnesium Chloride (Magnesium Chloride 64 Mg Tablet) 64 mg PO BID [facility] Last Admin: 08/02/21 08:53 Dose: 64 mg Documented by: Metoprolol Succinate (Metoprolol Succinate Ext Rel 25 Mg Tabcr) 25 mg PO [facility] Last Admin: 08/02/21 08:53 Dose: 25 mg Documented by: Miscellaneous Information (Lidocaine Please Add Site Of Application) 0 each XX CLARIFY [facility] Stop: 08/31/21 00:00 Pantoprazole Sodium (Pantoprazole 40 Mg Tablet) 40 mg PO [facility] Last Admin: 08/02/21 08:54 Dose: 40 mg Documented by: Tramadol HCl (Tramadol Hcl (*Crx) 50 Mg Tablet) 50 mg PO Q6H PRN PRN Reason: PAIN RATED 4-6 Last Admin: 08/01/21 20:26 Dose: 50 mg Documented by: Sedation/Anesthesia: No previous sedation/anesthesia problems (including family history). PMFSH Past Medical History Medical History AB (asthmatic bronchitis) Abnormal thyroid function test Anemia Ascending aortic aneurysm ASHD (arteriosclerotic heart disease) BMI 20.0-20.9, adult BMI 21.0-21.9, adult BMI 22.0-22.9, adult Bradycardia Bronchitis CAD (coronary artery disease) Cardiac arrhythmia Chronic low back pain Cognitive dysfunction Debility Depressed mood Effusion, right knee Elevated homocysteine Fall Fatigue Follow up Follow up GERD (ga
--- NOTE | 2021-08-02 10:15 | WPDTEECHO ---
LICO TransEsophageal Echocardiogram Date of procedure: 08/02/21 Procedure Type: 1- moderate sedation that started at 10:32 a.m. and ended at 10:51 a.m. total duration 21 minutes using 3 mg of Versed and 75 mcg fentanyl. The registered nurse was naty robert. 2-transesophageal echocardiogram using 2D imaging, color Doppler, continuous Doppler Diagnosis: Possible severe aortic valve stenosis Indications: Assess aortic valve severity Image Quality: Excellent Findings: -left ventricle: Normal left ventricular systolic function. Ejection fraction 65%. -right ventricle: Normal size and systolic function. -left atrium: Normal size. -right atrium: Normal size. -left atrial appendage: No evidence clots. -interatrial septum: No evidence of shunt by color Doppler. -mitral valve: Normal structure. Mild to moderate mitral regurgitation. -aortic valve: Bioprosthetic aortic valve. Some narrowing. Aortic valve area by 2D echo was 1.3 cm2 . No aortic regurgitation. The valve was horizontal and was hard to get measurement of continuous wave. -tricuspid valve: Normal structure and function without regurgitation. -pulmonic valve: Normal structure and function without regurgitation. -ascending aorta : Normal caliber. -descending aorta: Normal caliber. -pericardium: No pericardial effusion. Conclusions: Moderate bioprosthetic aortic stenosis.
[2021-08-02 15:22] LABS: Basophils Absolute Auto 0.1 K/mm3 (0.0-0.1); Basophils Percent Auto 0.8 % (0.2-1.2); Eosinophils Absolute Auto 0.1 K/mm3 (0-0.3); Eosinophils Percent Auto 1.4 % (0-4.4); Hemoglobin 13.8 g/dL (14.0-18.0); Immature Granulocyte Absolute 0.03 K/mm3 (0.00-0.031); Immature Granulocyte Percent A 0.4 % (0-0.5); Lymphocytes Absolute Auto 1.29 K/mm3 (0.9-3.2); Lymphocytes Percent Auto 15.4 % (18.3-44.2); Mean Corpuscular HGB Conc 34.5 g/dl (32-36); Mean Corpuscular Hemoglobin 33.5 pg (26-34); Mean Corpuscular Volume 97.1 fl (80-100); Mean Platelet Volume 11.3 fl (7.4-10.4); Monocytes Absolute Auto 1.2 K/mm3 (0.1-0.6); Monocytes Percent Auto 13.7 % (2.6-8.5); Neutrophils Absolute Auto 5.7 K/mm3 (1.3-6.7); Neutrophils Percent Auto 68.3 % (45.5-73.1); Platelet Count Result 166 k/mm3 (150-375); Red Blood Count 4.12 M/mm3 (4.6-6.20); Red Cell Distribution Width 12.2 % (11.5-14.5); White Blood Count 8.4 K/mm3 (4.5-10.0)
[2021-08-02 15:27] LABS: Anion Gap 4 mmol/L (8-16); Blood Urea Nitrogen 12 mg/dL (9-20); Calcium 9.3 mg/dL (8.4-10.2); Carbon Dioxide 29 mmol/L (22-30); Chloride 100 mmol/L (98-107); Estimated CRCL calculation 59 ml/min; Estimated Glomerular Filt Rate > 60; Glucose 92 mg/dL (65-110); Potassium 4.5 mmol/L (3.4-5.0); Sodium 133 mmol/L (137-145)
[2021-08-02] MEDS: DULoxetine HCL 20 MG CAPSULE.DR PO (20:31)
[2021-08-03] VITALS (9 sets, daily range): BP systolic 124–134; BP diastolic 82–95; PULSE 47–92; RESP 18–20; TEMP 36.3–36.9; O2SAT 94–98
[2021-08-03 04:49] LABS: Basophils Absolute Auto 0.1 K/mm3 (0.0-0.1); Basophils Percent Auto 1.1 % (0.2-1.2); Eosinophils Absolute Auto 0.1 K/mm3 (0-0.3); Eosinophils Percent Auto 0.9 % (0-4.4); Hematocrit 39.8 % (42.0-52.0); Hemoglobin 13.7 g/dL (14.0-18.0); Immature Granulocyte Absolute 0.05 K/mm3 (0.00-0.031); Immature Granulocyte Percent A 0.6 % (0-0.5); Lymphocytes Absolute Auto 1.24 K/mm3 (0.9-3.2); Lymphocytes Percent Auto 13.8 % (18.3-44.2); Mean Corpuscular HGB Conc 34.4 g/dl (32-36); Mean Corpuscular Hemoglobin 33.3 pg (26-34); Mean Corpuscular Volume 96.8 fl (80-100); Mean Platelet Volume 11.3 fl (7.4-10.4); Monocytes Absolute Auto 1.1 K/mm3 (0.1-0.6); Monocytes Percent Auto 12.5 % (2.6-8.5); Neutrophils Absolute Auto 6.4 K/mm3 (1.3-6.7); Neutrophils Percent Auto 71.1 % (45.5-73.1); Platelet Count Result 159 k/mm3 (150-375); Red Blood Count 4.11 M/mm3 (4.6-6.20); Red Cell Distribution Width 12.2 % (11.5-14.5)
[2021-08-03 05:11] LABS: Anion Gap 8 mmol/L (8-16); Blood Urea Nitrogen 11 mg/dL (9-20); Calcium 9.3 mg/dL (8.4-10.2); Carbon Dioxide 24 mmol/L (22-30); Chloride 100 mmol/L (98-107); Estimated CRCL calculation 59 ml/min; Estimated Glomerular Filt Rate > 60; Glucose 92 mg/dL (65-110); Magnesium 0.9 mg/dL (1.6-2.3); Potassium 4.1 mmol/L (3.4-5.0); Sodium 132 mmol/L (137-145)
--- NOTE | 2021-08-03 08:09 | PM.IMPN ---
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 He underwent a 29 mm magna pericardial valve implantation in 2015. Echocardiogram reveals severe aortic stenosis of the bioprosthetic valve. There is severe aortic valve stenosis with a peak velocity of 315 cm/s, mean gradient of 17 mmHg, and aortic valve area of 0.8 cm2. Oli shows moderate aortic stenosis. Follow up Cardiology recommendation. (2) Syncope and collapse: Code(s): R55 - Syncope and collapse Status: Acute Assessment and Plan: Syncope and collapse, likely secondary to hypotension. Systolic blood pressure in the 90s at presentation improved after 1 L IV fluid administered. Patient is on a triple regimen with lisinopril, spironolactone and carvedilol that was discontinued. He was started on a modest dose of metoprolol due to ventricular ectopy.. On today vital signs blood pressure is in the 124/90 8-120 7/87 range. Continue to hold blood pressure medication unless blood pressure is equal or higher than 130/80. Given the patient age a more conservative blood pressure goal could be some the lower blood pressure diet he can tolerate without having hypotensive symptoms. Patient denies recent dizziness or light headedness.. He was orthostatic on admission. EKG shows atrial fibrillation with bigeminy. At the time of my encounter rate is relatively control in the 70-90 range. On telemetry reviewed, patient is in controlled atrial fibrillation with some aberrancy noted. Plan for transesophageal echocardiogram. (3) Ventricular trigeminy: Code(s): I49.8 - Other specified cardiac arrhythmias Status: Acute Assessment and Plan: Continue metoprolol succinate 25 mg p.o. daily. Hypo magnesemia was supplemented. Repeat potassium and magnesium levels today. (4) Hypertension: Code(s): I10 - Essential (primary) hypertension Status: Acute Assessment and Plan: Hold home meds Hold for systolic equal or less than 130. (5) S/P AVR (aortic valve replacement): Code(s): Z95.2 - Presence of prosthetic heart valve Status: Acute Assessment and Plan: Currently diagnosed with severe aortic stenosis. Plan 40. Continue to monitor (6) CAD (coronary artery disease): Qualifiers: Coronary Disease-Associated Artery/Lesion type: unspecified vessel or lesion type [place] vs. transplanted heart: [place] heart Associated angina: with unspecified angina Qualified Code(s): I25.119 - Atherosclerotic heart disease of [place] coronary artery with unspecified angina pectoris Code(s): I25.10 - Atherosclerotic heart disease of [place] coronary artery without angina pectoris Status: Acute Assessment and Plan: Chest pain-free; there is no significant atherosclerotic burden per Cardiology note. Continue atorvastatin Continue aspirin Continue metoprolol succinate 25 mg p.o. daily. (7) Cognitive dysfunction: Code(s): F09 - Unspecified mental disorder due to known physiological condition Status: Acute Assessment and Plan: Mild cognitive decline versus early sign of dementia. Continue donepezil (8) Chronic low back pain: Qualifiers: Back pain laterality: unspecified Sciatica presence: unspecified whether sciatica present Qualified Code(s): M54.5 - Low back pain; G89.29 - Other chronic pain Code(s): M54.5 - Low back pain; G89.29 - Other chronic pain Status: Acute Assessment and Plan: Lidoderm patch p.r.n.. Tylenol p.r.n. (9) GERD (gastroesophageal reflux disease): Code(s): K21.9 - Gastro-esophageal reflux disease without esophagitis Status: Acute Assessment and Plan: Continue PPI Subjective Date/time seen: 08/03/21 08:09 Patient
[2021-08-03] MEDS: ASPIRIN 81 MG ENTERIC TABLET PO (09:15)
[2021-08-03] MEDS: AZELASTINE HCL NASAL 0.1% 137 MCG/SPR 30 ML BTL 1 SPRAY NASAL (09:16)
[2021-08-03] MEDS: CITALOPRAM HYDROBROMIDE 20 MG TABLET BY MOUTH (09:16)
[2021-08-03] MEDS: ATORVASTATIN 40 MG TABLET PO (09:16)
[2021-08-03] MEDS: DONEPEZIL HCL 10 MG TABLET PO (09:17)
[2021-08-03] MEDS: FOLIC ACID 1 MG TABLET BY MOUTH (09:17)
[2021-08-03] MEDS: CYANOCOBALAMIN 1,000 MCG TABLET 1000 MCG PO (09:17)
[2021-08-03] MEDS: GABAPENTIN 100 MG CAPSULE PO (09:17)
[2021-08-03] MEDS: MAGNESIUM CHLORIDE 64 MG TABLET PO (09:18)
[2021-08-03] MEDS: METOPROLOL SUCCINATE EXT REL 25 MG TABCR PO (09:18)
[2021-08-03] MEDS: PANTOPRAZOLE 40 MG TABLET PO (09:18)
--- NOTE | 2021-08-03 10:25 | PM.PNCARD ---
Progress Note: A&P Additional Plan 80-year-old man with: Syncopal episode appears to be the result of symptomatic hypotension. This is improved following discontinuance of his CHON-inhibitor carvedilol and diuretic. Since his LV function is normal these can probably be reasonably discontinued at this time. Modest dose of metoprolol will be used to treat him since he does have fair amount of ventricular ectopic activity including episodes of bigeminy, some couplets and asymptomatic triplets. He can be discharged today from my perspective I will insure that follow-up in the office is scheduled in the next several weeks to ensure that he is doing well with this regimen. Reji Pierre MD [facility] Subjective Date/time seen: Date of service: 08/03/21 10:25 Interval history: Follow-up visit in this 80-year-old man with: Previous aortic root replacement and aortic valve replacement because of aortic root dilatation and severe aortic regurgitation. Entered the hospital after a syncopal episode probably related to hypotension. Following hydration and discontinuance of carvedilol lisinopril and spironolactone he feels much better. He does have a fair amount of asymptomatic ventricular ectopic activity and for that reason a modest dose of metoprolol has been started. Today he is ambulatory feels well no lightheadedness upon standing would like to be discharged. Concern on admission regarding prosthetic aortic stenosis was addressed when the LICO yesterday demonstrates this is not the case. It would be very unusual for a 7-year-old 29 mm bioprosthetic valve to become stenotic this soon. Exam Const: General: comfortable and no acute distress Other: Pleasant tall elderly man in no distress HENMT: Mouth: Yes moist mucous membranes Eyes: Sclera: sclerae normal Pupils: Equal, round and reactive pupils present Neck: Neck: supple and no JVD Other: No carotid bruits normal carotid upstrokes Resp: Effort & Inspection: normal respiratory effort Auscultation: clear to auscultation bilaterally Cardio: Other: S1-S2 normal patient has a very soft systolic murmur at the base because of his aortic valve bioprosthesis A2 is preserved however. No diastolic murmur GI: Auscultation: normal bowel sounds Skin: General skin exam: normal color Neuro: Cranial nerves: Yes Equal, round and reactive pupils present Cognition (Neuro): normal cognition Extrem: General: normal to inspection Objective Data Vital Signs Vital Signs: Vital Signs - 24 hr 08/02/21 10:30 08/02/21 10:35 08/02/21 10:40 Temperature Pulse Rate 65 59 L 58 L Respiratory Rate 17 22 H 22 H Blood Pressure 155/87 H 171/100 H 140/92 H Pulse Oximetry 98 99 99 08/02/21 10:45 08/02/21 10:50 08/02/21 11:00 Temperature Pulse Rate 62 65 68 Respiratory Rate 17 20 19 Blood Pressure 123/88 149/100 H 144/110 H Pulse Oximetry 99 100 100 08/02/21 11:15 08/02/21 11:30 08/02/21 11:45 Temperature Pulse Rate 67 65 60 Respiratory Rate 19 20 20 Blood Pressure 135/80 158/90 H 138/88 Pulse Oximetry 100 100 100 08/02/21 12:00 08/02/21 12:15 08/02/21 14:00 Temperature Pulse Rate 59 L 60 69 Respiratory Rate 20 18 Blood Pressure 153/87 H 136/97 H Pulse Oximetry 100 100 08/02/21 16:00 08/02/21 20:00 08/02/21 22:00 Temperature 37.1 C 36.9 C Pulse Rate 63 92 67 Respiratory Rate 18 18 Blood Pressure 127/79 127/62 Pulse Oximetry 96 99 08/02/21 23:37 08/03/21 00:00 08/03/21 02:00 Temperature 36.2 C L Pulse Rate 86 90 62 Respiratory Rate 18 Blood Pressure 118/82 Pulse Oximetry 97 08/03/21 03:46 08/03/21 04:00 08/03/21 06:00 Temperature 36.3 C L Pulse Rate 84 59 L 65 Respiratory Rate 18 Blood Pressure 124/95 H Pulse Oximetry 98 08/03/21 08:00 08/03/21 09:18 Temperature 36.9 C Pulse Rate 47 L 92 Respiratory Rate 20 Blood Pressure 134/82 Pulse Oximetry 97 Intake/Output Intake/Output: Intake & Output 07/31/21
--- NOTE | 2021-08-03 11:31 | PM.DS ---
DS: Admitting Diagnosis Discharge Date 08/03/2020 Admitting Diagnosis (1) Syncope and collapse: (2) Ventricular trigeminy: (3) Hypertension: (4) S/P AVR (aortic valve replacement): (5) CAD (coronary artery disease): (6) Cognitive dysfunction: (7) Chronic low back pain: (8) GERD (gastroesophageal reflux disease): DS: Discharge Diagnosis Discharge Diagnosis (1) Aortic stenosis, severe: Code(s): I35.0 - Nonrheumatic aortic (valve) stenosis Status: Acute Assessment and Plan: Patient carries a history of aortic root/aortic valve replacement September of 2015. He underwent a 29 mm magna pericardial valve implantation in 2016. Echocardiogram reveals severe aortic stenosis of the bioprosthetic valve. There is severe aortic valve stenosis with a peak velocity of 315 cm/s, mean gradient of 17 mmHg, and aortic valve area of 0.8 cm2. Oli shows moderate aortic stenosis. Per cardiology recommendation, this syncopal episode appears to be the result of symptomatic hypotension. This is improved following discontinuance of his CHON-inhibitor, carvedilol and diuretic. Since his LV function is normal these can probably be reasonably discontinued at this time. Modest dose of metoprolol succinate was initiated to adress the fair amount of ventricular ectopic activity observed, including episodes of bigeminy, some couplets and asymptomatic triplets. He can be discharged today fand will follow-up in the [facility] office within 4-6 weeks. (2) Syncope and collapse: Code(s): R55 - Syncope and collapse Status: Acute Assessment and Plan: Syncope and collapse, likely secondary to hypotension. Systolic blood pressure in the 90s at presentation improved after 1 L IV fluid administered. Patient is on a triple regimen with lisinopril, spironolactone and carvedilol that was discontinued. He was started on a modest dose of metoprolol due to ventricular ectopy.. On today vital signs blood pressure is in the 124/90 8-120 7/87 range. Continue to hold blood pressure medication unless blood pressure is equal or higher than 130/80. Given the patient age a more conservative blood pressure goal could be some the lower blood pressure diet he can tolerate without having hypotensive symptoms. Patient denies recent dizziness or light headedness.. He was orthostatic on admission. EKG shows atrial fibrillation with bigeminy. At the time of my encounter rate is relatively control in the 70-90 range. On telemetry reviewed, patient is in controlled atrial fibrillation with some aberrancy noted. Plan for transesophageal echocardiogram. (3) Ventricular trigeminy: Code(s): I49.8 - Other specified cardiac arrhythmias Status: Acute Assessment and Plan: Continue metoprolol succinate 25 mg p.o. daily. Hypo magnesemia was supplemented. Repeat potassium and magnesium levels today. (4) Hypertension: Code(s): I10 - Essential (primary) hypertension Status: Acute Assessment and Plan: Hold home meds Hold for systolic equal or less than 130. (5) S/P AVR (aortic valve replacement): Code(s): Z95.2 - Presence of prosthetic heart valve Status: Acute Assessment and Plan: Currently diagnosed with severe aortic stenosis. Plan 40. Continue to monitor (6) CAD (coronary artery disease): Qualifiers: Coronary Disease-Associated Artery/Lesion type: unspecified vessel or lesion type [place] vs. transplanted heart: ambler heart Associated angina: with unspecified angina Qualified Code(s): I25.119 - Atherosclerotic heart disease of ambler coronary artery with unspecified angina pectoris Code(s): I25.10 - Atherosclerotic heart disease of ambler coronary artery without angina pectoris Status: Acute Assessment and Plan: Chest pain-free; there is no significant atherosclerotic burden per Cardiology note. Continue atorvastatin Continue aspirin Continue metoprolol succinate 25
== END 2021-08-03 13:32 | disposition home or self-care (01) ==
LOC: ANHED 16:02 → ANHIMU 19:05
PROVIDERS: Internal Medicine Cardiovascular Disease; Admitting Provider Internal Medicine; Emergency Provider Emergency Medicine; PCP Internal Medicine; Visit Provider Internal Medicine
PROC: (CPT 93312; principal; 2021-08-02 10:00)
DX: I35.0 Nonrheumatic aortic (valve) stenosis (principal); R55 Syncope and collapse; I49.8 Other specified cardiac arrhythmias; R00.8 Other abnormalities of heart beat; I34.1 Nonrheumatic mitral (valve) prolapse; I36.1 Nonrheumatic tricuspid (valve) insufficiency; I70.0 Atherosclerosis of aorta; F09 Unspecified mental disorder due to known physiological condition; W18.39XA Other fall on same level, initial encounter; I25.10 Atherosclerotic heart disease of native coronary artery without angina pectoris; I71.2 Thoracic aortic aneurysm, without rupture; K21.9 Gastro-esophageal reflux disease without esophagitis; I10 Essential (primary) hypertension; E78.5 Hyperlipidemia, unspecified; D64.9 Anemia, unspecified; M54.50 Low back pain, unspecified; G89.29 Other chronic pain; Z95.4 Presence of other heart-valve replacement; Z79.82 Long term (current) use of aspirin; Z95.2 Presence of prosthetic heart valve
CPT/HCPCS: 36415; 70450; 71045; 80048; 80053; 81001; 82550; 83735; 84439; 84443; 84484; 85025; 85652; 86140; 93005; 93306; 93312; 93320; 93325; 99285; A9270; C1751; G0378; J2250; J3010; J7040; Q9957

== ENCOUNTER 2021-09-18 09:33 | Outpatient (CLI) | payer MEDICARE, SELFPAY ==
[2021-09-18 10:06] LABS: Basophils Absolute Auto 0.1 K/mm3 (0.0-0.1); Eosinophils Absolute Auto 0.1 K/mm3 (0-0.3); Hematocrit 40.6 % (42.0-52.0); Hemoglobin 13.2 g/dL (14.0-18.0); Immature Granulocyte Absolute 0.04 K/mm3 (0.00-0.031); Immature Granulocyte Percent A 0.5 % (0-0.5); Lymphocytes Absolute Auto 1.15 K/mm3 (0.9-3.2); Lymphocytes Percent Auto 14.1 % (18.3-44.2); Mean Corpuscular HGB Conc 32.5 g/dl (32-36); Mean Corpuscular Hemoglobin 32.5 pg (26-34); Monocytes Percent Auto 12.1 % (2.6-8.5); Neutrophils Absolute Auto 5.8 K/mm3 (1.3-6.7); Neutrophils Percent Auto 71.3 % (45.5-73.1); Platelet Count Result 181 k/mm3 (150-375); Red Blood Count 4.06 M/mm3 (4.6-6.20); Red Cell Distribution Width 13.6 % (11.5-14.5); White Blood Count 8.2 K/mm3 (4.5-10.0)
[2021-09-18 10:19] LABS: Alanine Aminotransferase 8 U/L (4-50); Albumin Level 3.4 g/dL (3.5-5.1); Alkaline Phosphatase 143 U/L (38-126); Anion Gap 3 mmol/L (8-16); Aspartate Amino Transferase 20 U/L (17-59); Blood Urea Nitrogen 12 mg/dL (9-20); Carbon Dioxide 29 mmol/L (22-30); Chloride 107 mmol/L (98-107); Cholesterol 138 mg/dL (0-200); Estimated Glomerular Filt Rate > 60; Glucose 96 mg/dL (65-110); HDL Direct 54 mg/dL; Potassium 4.3 mmol/L (3.4-5.0); Sodium 139 mmol/L (137-145); Triglycerides 81 mg/dL (<150)
[2021-09-18 10:30] LABS: LDL Cholesterol Direct 59 mg/dL
== END 2021-09-18 09:34 | disposition home or self-care (01) ==
PROVIDERS: PCP Internal Medicine; Visit Provider Internal Medicine
DX: I10 Essential (primary) hypertension (principal); E78.2 Mixed hyperlipidemia; Z79.899 Other long term (current) drug therapy
CPT/HCPCS: 36415; 80053; 80061; 83036; 85025

== ENCOUNTER 2022-01-04 09:29 | Outpatient (CLI) | payer MEDICARE, SELFPAY ==
[2022-01-04 10:14] LABS: Basophils Absolute Auto 0.1 K/mm3 (0.0-0.1); Basophils Percent Auto 0.9 % (0.2-1.2); Eosinophils Absolute Auto 0.2 K/mm3 (0-0.3); Eosinophils Percent Auto 2.2 % (0-4.4); Hematocrit 46.2 % (42.0-52.0); Hemoglobin 15.4 g/dL (14.0-18.0); Immature Granulocyte Absolute 0.02 K/mm3 (0.00-0.031); Immature Granulocyte Percent A 0.2 % (0-0.5); Lymphocytes Absolute Auto 0.61 K/mm3 (0.9-3.2); Lymphocytes Percent Auto 7.2 % (18.3-44.2); Mean Corpuscular HGB Conc 33.3 g/dl (32-36); Mean Corpuscular Volume 95.9 fl (80-100); Mean Platelet Volume 11.5 fl (7.4-10.4); Monocytes Absolute Auto 0.9 K/mm3 (0.1-0.6); Monocytes Percent Auto 10.8 % (2.6-8.5); Neutrophils Absolute Auto 6.7 K/mm3 (1.3-6.7); Neutrophils Percent Auto 78.7 % (45.5-73.1); Platelet Count Result 185 k/mm3 (150-375); Red Blood Count 4.82 M/mm3 (4.6-6.20); Red Cell Distribution Width 13.4 % (11.5-14.5); White Blood Count 8.5 K/mm3 (4.5-10.0)
[2022-01-04 10:30] LABS: Alanine Aminotransferase 10 U/L (6-50); Albumin Level 4.1 g/dL (3.5-5.1); Alkaline Phosphatase 131 U/L (38-126); Anion Gap 3 mmol/L (8-16); Aspartate Amino Transferase 25 U/L (17-59); Bilirubin,Total 1.4 mg/dL (0.2-1.3); Blood Urea Nitrogen 15 mg/dL (9-20); Calcium 9.2 mg/dL (8.4-10.2); Carbon Dioxide 31 mmol/L (22-30); Chloride 105 mmol/L (98-107); Cholesterol 151 mg/dL (0-200); Estimated Glomerular Filt Rate 58; Glucose 98 mg/dL (65-110); HDL Direct 45 mg/dL; Potassium 4.3 mmol/L (3.4-5.0); Sodium 139 mmol/L (137-145); Triglycerides 142 mg/dL (<150)
[2022-01-04 10:40] LABS: LDL Cholesterol Direct 69 mg/dL
[2022-01-04 10:54] LABS: Hemoglobin A1C 5.5 % (<5.7)
[2022-01-04 11:08] LABS: Vitamin D 25 Hydroxy 45.4 ng/mL
== END 2022-01-04 09:30 | disposition home or self-care (01) ==
LOC: ANHLAB 09:30
PROVIDERS: PCP Internal Medicine; Visit Provider Internal Medicine
DX: Z13.1 Encounter for screening for diabetes mellitus (principal); Z79.899 Other long term (current) drug therapy; E78.2 Mixed hyperlipidemia; I10 Essential (primary) hypertension; E55.9 Vitamin D deficiency, unspecified
CPT/HCPCS: 36415; 80053; 80061; 82306; 83036; 85025

== ENCOUNTER → 2022-01-11 03:00 | Outpatient (CLI) | payer MEDICARE, SELFPAY ==
[2022-01-11 11:47] LABS: Influenza A QL RT-PCR Negative (Negative); Influenza B QL RT-PCR Negative (Negative); SARS-CoV-2 RNA PCR Positive
== END ==
PROVIDERS: PCP Internal Medicine; Visit Provider Internal Medicine
DX: R68.89 Other general symptoms and signs (principal); U07.1 COVID-19
CPT/HCPCS: 87502; C9803; U0003; U0005

== ENCOUNTER → 2022-03-11 11:08 | Outpatient (CLI) | payer MEDICARE, SELFPAY ==
--- NOTE | ~2022-03-11 | US_ITS ---
US soft tissue groin RT DATE: 03/11/2022 11:34 INDICATION: Right groin pain TECHNIQUE: Real-time and color flow imaging of the right inguinal area including with Valsalva maneuv er COMPARISON: None FINDINGS: No right inguinal soft tissue mass or right inguinal hernia is detected. IMPRESSION: No significant abnormality Reviewed, dictated and finalized at Location A. Reviewed, dictated and finalized at location B. IMPRESSION: No significant abnormality
== END ==
PROVIDERS: PCP Internal Medicine; Visit Provider Surgery
DX: R10.31 Right lower quadrant pain (principal)
CPT/HCPCS: 76882

== ENCOUNTER 2022-06-11 11:30 | Outpatient (CLI) | payer MEDICARE, SELFPAY ==
[2022-06-11 12:03] LABS: Anion Gap 6 mmol/L (8-16); Blood Urea Nitrogen 15 mg/dL (9-20); Calcium 9.4 mg/dL (8.4-10.2); Carbon Dioxide 26 mmol/L (22-30); Chloride 105 mmol/L (98-107); Cholesterol 149 mg/dL (0-200); Estimated Glomerular Filt Rate > 60; Glucose 99 mg/dL (65-110); HDL Direct 57 mg/dL; Potassium 4.4 mmol/L (3.4-5.0); Sodium 137 mmol/L (137-145); Triglycerides 91 mg/dL (<150)
[2022-06-11 12:04] LABS: Hemoglobin A1C 5.3 % (<5.7)
[2022-06-11 12:15] LABS: LDL Cholesterol Direct 61 mg/dL
[2022-06-11 12:50] LABS: Free T4 Free Thyroxine 1.12 ng/mL (0.78-2.19); Vitamin D 25 Hydroxy 33.6 ng/mL
== END 2022-06-11 11:31 | disposition home or self-care (01) ==
LOC: ANHLAB 11:31
PROVIDERS: PCP Internal Medicine; Visit Provider Internal Medicine
DX: I10 Essential (primary) hypertension (principal); R94.6 Abnormal results of thyroid function studies; Z79.899 Other long term (current) drug therapy; E78.5 Hyperlipidemia, unspecified; E55.9 Vitamin D deficiency, unspecified
CPT/HCPCS: 36415; 80048; 80061; 82306; 83036; 84439; 84443

== ENCOUNTER 2022-08-01 16:27 | Emergency (ER) | payer MEDICARE, SELFPAY ==
--- NOTE | ~2022-08-01 | CT_ITS ---
EXAMINATION: CT brain wo con DATE: 08/01/2022 20:30 INDICATION: Fall. TECHNIQUE: Computed tomography (CT) of the head was performed without intravenous contrast. The mA wa s adjusted according to patient size. Iterative reconstruction technique was employed. The dose-lengt h product was 983.67 mGy-cm. COMPARISON: Head CT 07/31/2021, brain MRI 01/02/2021 FINDINGS: There are scattered areas of low attenuation in the cerebral white matter, which is within normal limits for the patient's age. There is no intracranial hemorrhage, acute infarction, or abnorm al intracranial mass lesion. The ventricles are normal in size. There is mild mucosal thickening in t he paranasal sinuses. There are likely changes of ocular lens replacement surgeries. The mastoid air cells are normal. IMPRESSION: 1. Normal aging brain. Reviewed, dictated and finalized at location A. ITY IMPROVEMENT COORDINATOR IMPRESSION: 1. Normal aging brain.
--- NOTE | ~2022-08-01 | XR_ITS ---
EXAMINATION: XR knee RT 3V DATE: 08/01/2022 17:23 INDICATION: Right knee pain. TECHNIQUE: 3 views of right knee were obtained. COMPARISON: Right knee radiographs 12/31/2020 FINDINGS: Bone alignment is normal. No fracture. There is mild tricompartmental osteoarthritis. There is chondrocalcinosis of the menisci. There is a small knee joint effusion. IMPRESSION: 1. Mild right knee osteoarthritis. 2. Small right knee joint effusion. Reviewed, dictated and finalized at location A. R MAKING MACHINE SUPERVISOR
--- NOTE | ~2022-08-01 | XR_ITS ---
EXAMINATION: XR hip RT 2V w AP pelvis DATE: 08/01/2022 17:23 INDICATION: Right hip pain. Fall. TECHNIQUE: An anteroposterior view of the pelvis on 2 radiographs and 2 views of right hip were obtai matt. COMPARISON: Right hip radiographs 11/17/2018 FINDINGS: There is lumbar dextrocurvature and mild spondylosis. No fracture. There is moderate osteoa rthritis of the hips. A staple line overlies the lower abdomen. IMPRESSION: 1. Moderate osteoarthritis of the hips. Reviewed, dictated and finalized at location A. THOLOGY TEACHER
[2022-08-01 17:04] VITALS: BP 120/82; PULSE 63; RESP 14; TEMP 36.7; O2SAT 90
--- NOTE | 2022-08-01 20:01 | ED.GENADULT ---
HPI - General Adult General Chief complaint: Extremity Injury, Lower Stated complaint: R. knee pain Time Seen by Provider: 08/01/22 19:51 Source: patient and family Mode of arrival: ambulatory Limitations: no limitations History of Present Illness HPI narrative: Patient is 81 years old white male somehow tripped and fell on the right knee, denies head injury or other injuries. His grandson reported that patient hit his head. No loss of consciousness. History of arthritis all over. Related Data Home Medications Medication Instructions Recorded Confirmed cyanocobalamin (vitamin B-12) 1,000 mcg PO DAILY 05/10/21 06/11/22 1,000 mcg tablet aspirin 81 mg tablet,delayed 81 mg PO QAM 06/19/21 06/11/22 release (Adult Aspirin Regimen) Allergies Allergy/AdvReac Type Severity Reaction Status Date / Time No Known Allergies Allergy Verified 02/25/22 13:06 Review of Systems Review of Systems: All systems reviewed & are unremarkable except as noted in HPI and below PMFSH Past Medical History Medical History AB (asthmatic bronchitis) Abnormal thyroid function test Anemia Aphthous ulcer of mouth Ascending aortic aneurysm ASHD (arteriosclerotic heart disease) BMI 20.0-20.9, adult BMI 21.0-21.9, adult BMI 22.0-22.9, adult Bradycardia Bronchitis CAD (coronary artery disease) Cardiac arrhythmia Chronic low back pain Cognitive dysfunction Debility Decreased pedal pulses Depressed mood Diverticular disease Effusion, right knee Elevated homocysteine Encounter for routine adult health examination with abnormal findings Fall Fatigue Follow up Follow up GERD (gastroesophageal reflux disease) Groin pain Hearing loss 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 History of hemochromatosis HTN (hypertension), malignant Hyperlipidemia Hypomagnesemia Impaired functional mobility, balance, gait, and endurance Inguinal hernia Multiple joint pain Plantar fasciitis Post herpetic neuralgia Primary osteoarthritis of left knee Pulmonary granuloma Rhinorrhea Shingles Unexplained weight loss URI (upper respiratory infection) Ventricular bigeminy Weakness Surgical History Surgical History H/O right inguinal hernia repair 07/11/21 History of colon resection S/P AVR (aortic valve replacement) S/P tooth extraction Status post cataract surgery Family History Family History Sibling Hypertension Family history of malignant neoplasm of bone Father Family history of emphysema Family history of tuberculosis Family history of malignant neoplasm Mother Hypertension Family history of Parkinson's disease Social History Social History Social History: The patient stated that he is and has 2 children. The patient stated that he is a full code. And he has a male friend that is does needed to be a durable power banking attorney but could remember same at this point. The patient stated that he lives with a female friend. 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 The patient stated he is a lifelong nonsmoker. He does not drink or use marijuana or illicit drugs. Smoking status: Former smoker Second hand tobacco smoke exposure: Yes (STATES VERY RARELY) Additional smoking assessment comments: STATES SMOKED FOR SHORT TIME WHILE IN THE [employer] - UNABLE TO RECALL AMOUNT Alcohol intake: never Substance use: never Substance use type: does not use Lack of Transportation: No Lack of Food: Never True Current Housing: I Have Housing Concerned About Future Housing: No Difficulty Paying Gas/Electric Bills: No Difficulty Paying for Meds: No Currently Unemployed: No Education: High School Diploma/GED Difficulty w/ Childcare or Family Care: No Additional living arrangements comments: [place]
[2022-08-01 20:23] VITALS: BP 158/80; PULSE 70; RESP 12; O2SAT 99
== END 2022-08-01 21:41 | disposition home or self-care (01) ==
LOC: ANHED 21:15
PROVIDERS: Emergency Provider Emergency Medicine; PCP Internal Medicine
DX: S89.91XA Unspecified injury of right lower leg, initial encounter (principal); S09.90XA Unspecified injury of head, initial encounter; J45.909 Unspecified asthma, uncomplicated; I25.10 Atherosclerotic heart disease of native coronary artery without angina pectoris; I10 Essential (primary) hypertension; E78.5 Hyperlipidemia, unspecified; K21.9 Gastro-esophageal reflux disease without esophagitis; M17.0 Bilateral primary osteoarthritis of knee; M16.0 Bilateral primary osteoarthritis of hip; Z95.2 Presence of prosthetic heart valve; Z90.49 Acquired absence of other specified parts of digestive tract; Z98.49 Cataract extraction status, unspecified eye; Z86.2 Personal history of diseases of the blood and blood-forming organs and certain disorders involving the immune mechanism; Z87.891 Personal history of nicotine dependence; W01.0XXA Fall on same level from slipping, tripping and stumbling without subsequent striking against object, initial encounter
CPT/HCPCS: 70450; 73502; 73562; 99284

== ENCOUNTER 2022-10-09 11:39 | Outpatient (CLI) | payer MEDICARE, SELFPAY ==
[2022-10-09 12:11] LABS: Basophils Absolute Auto 0.1 K/mm3 (0.0-0.1); Eosinophils Percent Auto 0.6 % (0-4.4); Hematocrit 44.4 % (42.0-52.0); Hemoglobin 14.3 g/dL (14.0-18.0); Immature Granulocyte Absolute 0.02 K/mm3 (0.00-0.031); Immature Granulocyte Percent A 0.3 % (0-0.5); Immature Platelet Fraction Pct 9.5 % (0.9-11.2); Lymphocytes Absolute Auto 0.72 K/mm3 (0.9-3.2); Lymphocytes Percent Auto 10.8 % (18.3-44.2); Mean Corpuscular HGB Conc 32.2 g/dl (32-36); Mean Corpuscular Hemoglobin 33.4 pg (26-34); Mean Corpuscular Volume 103.7 fl (80-100); Mean Platelet Volume 11.6 fl (7.4-10.4); Monocytes Absolute Auto 0.6 K/mm3 (0.1-0.6); Monocytes Percent Auto 9.1 % (2.6-8.5); Neutrophils Absolute Auto 5.2 K/mm3 (1.3-6.7); Neutrophils Percent Auto 78.2 % (45.5-73.1); Platelet Count Result 136 k/mm3 (150-375); Red Blood Count 4.28 M/mm3 (4.6-6.20); White Blood Count 6.7 K/mm3 (4.5-10.0)
[2022-10-09 12:21] LABS: Alanine Aminotransferase 15 U/L (6-50); Alkaline Phosphatase 115 U/L (38-126); Anion Gap 6 mmol/L (8-16); Aspartate Amino Transferase 24 U/L (17-59); Bilirubin,Total 1.3 mg/dL (0.2-1.3); Blood Urea Nitrogen 13 mg/dL (9-20); Calcium 9.1 mg/dL (8.4-10.2); Carbon Dioxide 27 mmol/L (22-30); Chloride 108 mmol/L (98-107); Cholesterol 139 mg/dL (0-200); Estimated Glomerular Filt Rate 58; Glucose 92 mg/dL (65-110); HDL Direct 62 mg/dL; Potassium 4.2 mmol/L (3.4-5.0); Sodium 141 mmol/L (137-145); Triglycerides 94 mg/dL (<150)
[2022-10-09 12:32] LABS: LDL Cholesterol Direct 52 mg/dL
[2022-10-09 12:53] LABS: Free T4 Free Thyroxine 0.91 ng/mL (0.78-2.19)
== END 2022-10-09 11:40 | disposition home or self-care (01) ==
LOC: ANHLAB 11:40
PROVIDERS: PCP Internal Medicine; Visit Provider Internal Medicine
DX: E78.5 Hyperlipidemia, unspecified (principal); I10 Essential (primary) hypertension; Z13.29 Encounter for screening for other suspected endocrine disorder; Z79.899 Other long term (current) drug therapy
CPT/HCPCS: 36415; 80053; 80061; 84439; 84443; 85025; 85055

== ENCOUNTER 2023-02-28 08:54 | Outpatient (CLI) | payer MEDICARE, SELFPAY ==
[2023-02-28 10:49] LABS: Basophils Absolute Auto 0.1 K/mm3 (0.0-0.1); Eosinophils Absolute Auto 0.1 K/mm3 (0-0.3); Hematocrit 47.2 % (42.0-52.0); Hemoglobin 15.5 g/dL (14.0-18.0); Immature Granulocyte Absolute 0.01 K/mm3 (0.00-0.031); Immature Granulocyte Percent A 0.2 % (0-0.5); Lymphocytes Absolute Auto 0.92 K/mm3 (0.9-3.2); Mean Corpuscular HGB Conc 32.8 g/dl (32-36); Mean Corpuscular Hemoglobin 32.7 pg (26-34); Mean Corpuscular Volume 99.6 fl (80-100); Mean Platelet Volume 11.4 fl (7.4-10.4); Monocytes Absolute Auto 0.6 K/mm3 (0.1-0.6); Monocytes Percent Auto 10.8 % (2.6-8.5); Neutrophils Absolute Auto 4.1 K/mm3 (1.3-6.7); Platelet Count Result 152 k/mm3 (150-375); Red Blood Count 4.74 M/mm3 (4.6-6.20); White Blood Count 5.8 K/mm3 (4.5-10.0)
[2023-02-28 11:12] LABS: Alanine Aminotransferase 15 U/L (6-50); Albumin Level 4.2 g/dL (3.5-5.1); Alkaline Phosphatase 116 U/L (38-126); Anion Gap 6 mmol/L (8-16); Aspartate Amino Transferase 25 U/L (17-59); Bilirubin,Total 1.4 mg/dL (0.2-1.3); Blood Urea Nitrogen 16 mg/dL (9-20); Calcium 9.7 mg/dL (8.4-10.2); Carbon Dioxide 31 mmol/L (22-30); Chloride 104 mmol/L (98-107); Cholesterol 154 mg/dL (0-200); Estimated Glomerular Filt Rate 53; Glucose 100 mg/dL (65-110); HDL Direct 58 mg/dL; Potassium 4.4 mmol/L (3.4-5.0); Sodium 141 mmol/L (137-145); Triglycerides 92 mg/dL (<150)
[2023-02-28 11:23] LABS: LDL Cholesterol Direct 70 mg/dL
[2023-02-28 12:38] LABS: Folic Acid > 20.0 ng/mL (2.76->20)
== END 2023-02-28 08:55 | disposition home or self-care (01) ==
LOC: ANHLAB 08:57
PROVIDERS: PCP Internal Medicine; Visit Provider Internal Medicine
DX: I10 Essential (primary) hypertension (principal); R79.89 Other specified abnormal findings of blood chemistry; E78.2 Mixed hyperlipidemia
CPT/HCPCS: 36415; 80053; 80061; 82607; 82746; 85025

== ENCOUNTER 2023-03-13 11:32 | Outpatient (CLI) | payer MEDICARE, SELFPAY ==
--- NOTE | ~2023-03-13 | XR_ITS ---
Left Knee Technique: AP, lateral, and sunrise views were obtained. Clinical History: Pain Findings: No fracture or dislocation is seen. Mild tricompartmental degenerative spurring present. Ch ondrocalcinosis of the menisci noted. Small joint effusion is seen. Impression: Mild tricompartment degenerative spurring. Chondrocalcinosis of the menisci. Small joint effusion. Reviewed, dictated and finalized at location M. Impression: Mild tricompartment degenerative spurring. Chondrocalcinosis of the menisci. Small joint effusion.
== END 2023-03-13 11:33 | disposition home or self-care (01) ==
PROVIDERS: PCP Internal Medicine; Visit Provider Internal Medicine
DX: S86.911A Strain of unspecified muscle(s) and tendon(s) at lower leg level, right leg, initial encounter (principal); M25.462 Effusion, left knee; X58.XXXA Exposure to other specified factors, initial encounter
CPT/HCPCS: 73564

== ENCOUNTER → 2023-05-20 12:58 | Outpatient (CLI) | payer MEDICARE, SELFPAY ==
--- NOTE | ~2023-05-20 | DEXA_ITS ---
Bone Density Report Name: VIRAJ PRETTY Age: 82 Sex: Male Ethnicity: White Date of : 1940 Indication: screening for osteoporosis; parental hip fracture; height loss; prior fracture; Referring Provider: PATRICE TABARES Study: Bone densitometry was performed. Exam Date: May 20, 2023 Accession number: [id number] Bone Density: Region BMD T-score Z-score Classification AP Spine (L1, L2, L4) 0.859 -2.1 -0.9 Osteopenia Femoral Neck (Left) 0.452 -3.5 -2.0 Osteoporosis Total Hip (Left) 0.469 -3.7 -2.7 Osteoporosis Femoral Neck (Right) 0.577 -2.6 -1.1 Osteoporosis Total Hip (Right) 0.609 -2.8 -1.8 Osteoporosis Total Hip Mean 0.539 -3.3 -2.3 Osteoporosis World Health Organization criteria for BMD impression classify patients as: Normal (T-score at or above -1.0), Osteopenia (T-score between -1.0 and -2.5), or Osteoporosis (T-score at or below -2.5). 10-year Fracture Risk: FRAX not reported because: Some T-score for Spine Total or Hip Total or Femoral Neck at or below -2.5 Prior hip or vertebral fracture Clinical Information Provided by Patient: Have had a previous hip or vertebral fracture Has had a low trauma fracture Parent has had a hip fracture Patient maximum height was 74 Drinks caffeinated beverages Impression: The patient has established osteoporosis, based on the Left Total Hip T-score and the existence of a prior fracture. The patient has risk factors, including: parental hip fracture, previous fracture. Discussion: HIGH RISK OF FRACTURE. BONE DENSITY IS UNDESIRABLY LOW AT ONE OR MORE SKELETAL SITES, CONSISTENT WITH OSTEOPOROSIS. This patient's lowest T-score, in a patient who has previously fractured, meets the World Health Organization's (WHO) criteria for severe osteoporosis. In untreated patients, the risk of osteoporotic fracture increases approximately two-fold for each 1.0 SD decrease in T-score. Low bone density is not the only risk factor for fracture; also consider factors such as patient's age, frailty or poor health, risk of falling, risk of injury, previous osteoporotic fracture, family history of osteoporosis, cigarette smoking, low body weight, etc. Not everyone with low bone mineral density has osteoporosis; osteomalacia and other metabolic bone disorders should also be considered. Patients who have osteoporosis should be evaluated for specific diseases and conditions (secondary causes) that may cause or contribute to bone loss. The National Osteoporosis Foundation (NOF) recommends pharmacologic intervention for men with BMD at this level (a T-score of -2.5 or below). The patient should follow a healthful lifestyle (good nutrition with adequate calcium and vitamin D, and appropriate weight-bearing exercise). Follow-Up: Consider a repeat BMD and Vertebral Fracture Assessment (VF
== END ==
PROVIDERS: PCP Nurse Practitioner Family; Visit Provider Nurse Practitioner Family
DX: M81.0 Age-related osteoporosis without current pathological fracture (principal)
CPT/HCPCS: 77080

== ENCOUNTER 2023-07-12 10:17 | Outpatient (CLI) | payer MEDICARE, SELFPAY ==
[2023-07-12 10:40] LABS: Appearance Urine Clear (Clear); Bacteria Urine None Seen /hpf; Bilirubin Urine Negative (Negative); Blood Urine Negative (Negative); Color Urine Dark Yellow (Yellow); Glucose Urine UA Negative (Negative); Ketones Urine Negative (Negative); Leukocyte Esterase Ur Trace LEU/UL (Negative); Nitrate Urine Negative (Negative); Non Pathogenic Casts 0-2; Protein Urine Trace mg/dL (Negative); RBC Urine 0-2 /hpf (0-2); Specific Grav Ur 1.023 (1.001-1.035); Squamous Epithelial Cell Urine None seen /hpf (Few); WBC Urine 0-5 /hpf; pH Urine 5.5 (5.0-9.0)
[2023-07-12 10:44] LABS: Alanine Aminotransferase 12 U/L (6-50); Albumin Level 3.8 g/dL (3.5-5.1); Alkaline Phosphatase 103 U/L (38-126); Anion Gap 4 mmol/L (8-16); Aspartate Amino Transferase 22 U/L (17-59); Bilirubin,Total 1.4 mg/dL (0.2-1.3); Blood Urea Nitrogen 13 mg/dL (9-20); Calcium 9.3 mg/dL (8.4-10.2); Carbon Dioxide 29 mmol/L (22-30); Chloride 106 mmol/L (98-107); Cholesterol 148 mg/dL (0-200); Estimated Glomerular Filt Rate 58; Glucose 107 mg/dL (65-110); HDL Direct 56 mg/dL; Potassium 4.3 mmol/L (3.4-5.0); Sodium 139 mmol/L (137-145); Triglycerides 80 mg/dL (<150)
[2023-07-12 10:55] LABS: LDL Cholesterol Direct 72 mg/dL
[2023-07-12 10:57] LABS: Add Urine Microscopic? YES
== END 2023-07-12 10:18 | disposition home or self-care (01) ==
LOC: ANHLAB 10:19
PROVIDERS: PCP Internal Medicine; Visit Provider Internal Medicine
DX: E78.5 Hyperlipidemia, unspecified (principal); I10 Essential (primary) hypertension; Z79.899 Other long term (current) drug therapy
CPT/HCPCS: 36415; 80053; 80061; 81001

== ENCOUNTER 2023-11-22 08:20 | Outpatient (CLI) | payer MEDICARE, SELFPAY ==
[2023-11-22 08:45] LABS: Basophils Absolute Auto 0.1 K/mm3 (0.0-0.1); Eosinophils Absolute Auto 0.1 K/mm3 (0-0.3); Eosinophils Percent Auto 1.6 % (0-4.4); Hematocrit 44.8 % (42.0-52.0); Hemoglobin 14.9 g/dL (14.0-18.0); Immature Granulocyte Absolute 0.02 K/mm3 (0.00-0.031); Immature Granulocyte Percent A 0.3 % (0-0.5); Immature Platelet Fraction Pct 7.6 % (0.9-11.2); Lymphocytes Absolute Auto 0.93 K/mm3 (0.9-3.2); Lymphocytes Percent Auto 15.1 % (18.3-44.2); Mean Corpuscular HGB Conc 33.3 g/dl (32-36); Mean Corpuscular Hemoglobin 33.3 pg (26-34); Mean Platelet Volume 11.4 fl (7.4-10.4); Monocytes Absolute Auto 0.7 K/mm3 (0.1-0.6); Monocytes Percent Auto 11.2 % (2.6-8.5); Neutrophils Absolute Auto 4.4 K/mm3 (1.3-6.7); Neutrophils Percent Auto 70.8 % (45.5-73.1); Platelet Count Result 125 k/mm3 (150-375); Red Blood Count 4.48 M/mm3 (4.6-6.20); Red Cell Distribution Width 13.2 % (11.5-14.5); White Blood Count 6.2 K/mm3 (4.5-10.0)
[2023-11-22 08:55] LABS: Alanine Aminotransferase 13 U/L (6-50); Alkaline Phosphatase 96 U/L (38-126); Anion Gap 1 mmol/L (4-12); Aspartate Amino Transferase 27 U/L (17-59); Bilirubin,Total 1.2 mg/dL (0.2-1.3); Blood Urea Nitrogen 16 mg/dL (9-20); Calcium 9.4 mg/dL (8.4-10.2); Carbon Dioxide 30 mmol/L (22-30); Chloride 107 mmol/L (98-107); Cholesterol 129 mg/dL (0-200); Estimated Glomerular Filt Rate 58; Glucose 100 mg/dL (65-110); HDL Direct 53 mg/dL; Potassium 4.3 mmol/L (3.4-5.0); Sodium 138 mmol/L (137-145); Triglycerides 75 mg/dL (<150)
[2023-11-22 09:06] LABS: LDL Cholesterol Direct 76 mg/dL
[2023-11-22 09:19] LABS: Hemoglobin A1C 5.3 % (<5.7)
[2023-11-22 09:23] LABS: Vitamin D 25 Hydroxy 38.9 ng/mL
== END 2023-11-22 08:21 | disposition home or self-care (01) ==
LOC: ANHLAB 08:23
PROVIDERS: PCP Internal Medicine; Visit Provider Internal Medicine
DX: I10 Essential (primary) hypertension (principal); R73.09 Other abnormal glucose; E55.9 Vitamin D deficiency, unspecified; E78.2 Mixed hyperlipidemia
CPT/HCPCS: 36415; 80053; 80061; 82306; 83036; 85025; 85055

== ENCOUNTER 2023-12-15 06:47 | Outpatient (CLI) | payer MEDICARE, SELFPAY ==
--- NOTE | ~2023-12-15 | CT_ITS ---
CT of the Abdomen and Pelvis: Indication: Abdominal pain Technique: 2.5 mm axial scans were obtained through the abdomen and pelvis following intravenous adm inistration of 100 cc of Omnipaque 350. Dose reduction technique was used on this scan by utilizing a utomated exposure control and iterative reconstruction technique. The dose-length product (DLP) was 3 72.29 mGy-cm. COMPARISON: 05/10/2020 Findings: Scans through the lung bases demonstrate moderate hiatal hernia. The liver, spleen, pancreas, adrenals and kidneys are within normal limits, aside from bilateral nancy l cysts. Cholecystectomy clips are present. There are atherosclerotic calcifications of the aorta. N o lymphadenopathy. No bowel obstruction or bowel wall thickening. There is no evidence to suggest acute appendicitis. Re ctosigmoid anastomosis noted. Images through the pelvis were performed. Urinary bladder unremarkable. No pelvic mass seen. No ascit es. Chronic L3 compression fracture present. L5 compression fracture is probably chronic as well, but new since 2019. Impression: No acute abnormality evident. Moderate hiatal hernia. Compression fractures, as above. Reviewed, dictated and finalized at location . Impression: No acute abnormality evident. Moderate hiatal hernia. Compression fractures, as above.
== END 2023-12-15 06:48 | disposition home or self-care (01) ==
PROVIDERS: PCP Internal Medicine; Visit Provider Internal Medicine
DX: K44.9 Diaphragmatic hernia without obstruction or gangrene (principal); S32.030A Wedge compression fracture of third lumbar vertebra, initial encounter for closed fracture; S32.050A Wedge compression fracture of fifth lumbar vertebra, initial encounter for closed fracture; G89.29 Other chronic pain; X58.XXXA Exposure to other specified factors, initial encounter
CPT/HCPCS: 74177; Q9967

== ENCOUNTER 2024-04-01 10:11 | Outpatient (CLI) | payer MEDICARE, SELFPAY ==
[2024-04-01 10:57] LABS: Basophils Absolute Auto 0.1 K/mm3 (0.0-0.1); Basophils Percent Auto 1.1 % (0.2-1.2); Eosinophils Absolute Auto 0.1 K/mm3 (0-0.3); Eosinophils Percent Auto 1.4 % (0-4.4); Hematocrit 44.5 % (42.0-52.0); Immature Granulocyte Absolute 0.02 K/mm3 (0.00-0.031); Immature Granulocyte Percent A 0.3 % (0-0.5); Lymphocytes Absolute Auto 0.93 K/mm3 (0.9-3.2); Lymphocytes Percent Auto 14.5 % (18.3-44.2); Mean Corpuscular HGB Conc 33.7 g/dl (32-36); Mean Corpuscular Hemoglobin 33.6 pg (26-34); Mean Corpuscular Volume 99.6 fl (80-100); Monocytes Absolute Auto 0.7 K/mm3 (0.1-0.6); Monocytes Percent Auto 10.3 % (2.6-8.5); Neutrophils Absolute Auto 4.7 K/mm3 (1.3-6.7); Neutrophils Percent Auto 72.4 % (45.5-73.1); Platelet Count Result 135 k/mm3 (150-375); Red Blood Count 4.47 M/mm3 (4.6-6.20); Red Cell Distribution Width 13.1 % (11.5-14.5); White Blood Count 6.4 K/mm3 (4.5-10.0)
[2024-04-01 11:13] LABS: Alanine Aminotransferase 12 U/L (6-50); Albumin Level 3.9 g/dL (3.5-5.1); Alkaline Phosphatase 85 U/L (38-126); Anion Gap 8 mmol/L (4-12); Aspartate Amino Transferase 23 U/L (17-59); Bilirubin,Total 1.8 mg/dL (0.2-1.3); Blood Urea Nitrogen 20 mg/dL (9-20); Calcium 9.3 mg/dL (8.4-10.2); Carbon Dioxide 29 mmol/L (22-30); Chloride 103 mmol/L (98-107); Estimated Glomerular Filt Rate 53; Glucose 93 mg/dL (65-110); Potassium 4.3 mmol/L (3.4-5.0); Sodium 140 mmol/L (137-145)
[2024-04-01 12:45] LABS: Folic Acid > 20.0 ng/mL (2.76->20); Vitamin B12 > 1000.0 pg/mL (239-931)
== END 2024-04-01 10:12 | disposition home or self-care (01) ==
PROVIDERS: PCP Internal Medicine; Visit Provider Internal Medicine
DX: I10 Essential (primary) hypertension (principal); E53.8 Deficiency of other specified B group vitamins
CPT/HCPCS: 36415; 80053; 82607; 82746; 85025

== ENCOUNTER 2024-09-08 06:56 | Outpatient (CLI) | payer MEDICARE, SELFPAY ==
--- NOTE | ~2024-09-08 | CT_ITS ---
Clinical Indication: Abnormal weight loss CT Scan of the Chest, Abdomen, and Pelvis with Contrast: Technique: Contiguous sections were acquired throughout the chest, abdomen, and pelvis after intraven ous administration of 100 cc of Omnipaque 350. Dose reduction technique was used on this scan by rachael almaguer automated exposure control and iterative reconstruction technique. The dose-length product (DL P) was 428.34 mGy-cm. Comparison: 12/15/2023 Findings: There is no evidence of any significant mediastinal, hilar or axillary lymphadenopathy. Aortic arch i s dilated to 4.5 cm in diameter. Possible prior ascending aortic aneurysm repair. No aortic dissectio n. There is no evidence of pleural or pericardial effusion. Focal calcified pleural plaques are noted. The lungs are clear. No pulmonary nodules or infiltrates are noted. There is diffuse hepatic steatosis. Cholecystectomy clips are present. The spleen, pancreas, adrenals and kidneys are within normal limits. There are atherosclerotic calcifications of the aorta. No lym phadenopathy. No bowel obstruction or bowel wall thickening. There is no evidence to suggest acute appendicitis. Urinary bladder is unremarkable. No pelvic mass seen. No ascites. There is stable mild L5 compression deformity. Prior vertebroplasty at L3. Impression: No evidence for malignancy. Diffuse hepatic steatosis. Suspected prior ascending aortic aneurysm repair. Aortic arch is dilated to 4.5 cm. L5 compression fracture, unchanged. Reviewed, dictated and finalized at [facility]. OGEOLOGIST Impression: No evidence for malignancy. Diffuse hepatic steatosis. Suspected prior ascending aortic aneurysm repair. Aortic arch is dilated to 4.5 cm. L5 compression fracture, unchanged.
--- OUTSIDE RECORDS SUMMARY | 2024-09-08 07:00 | XMS_ITS | Referral Summary ---
Author Organization [facility] Address [address] [place] [address] Care Team Providers Care Cast Iron Drain Pipe Layer Name Role Phone Marcus Childs MD Primary Care Provider [phone] Encounters Date Type Department Care Team Description 06/28/2024 Telephone [facility] Cardiology [address] [place] [address] Reji Pierre MD Med Refill from Last 3 Months Allergies No known active allergies Medications citalopram (CeleXA) 20 mg tablet take 1 Tablet by oral route every day [address] (ACIPHEX) 20 mg EC tablet take 1 Tablet by oral route every day 0 0 4 Active atorvastatin (LIPITOR) 40 mg tablet TAKE 1 TABLET(40 MG) BY MOUTH DAILY 90 tablet 7 Active aspirin 81 mg tablet Take 1 tablet (81 mg total) by mouth daily Active HYDROcodone-jessica taminophen (NORCO) 5-325 mg per tabletIndicatio ns:Pain Take 1 tablet by mouth every 6 (six) hours as needed Active folic acid (FOLVITE) 1 mg tablet Take 1 tablet (1 mg total) by mouth daily Active lisinopriL (PRINIVIL,ZESTR IL) 2.5 mg tablet TAKE 1 TABLET BY MOUTH DAILY 90 tablet 3 0 Active donepeziL (ARICEPT) 10 mg tablet Take 1 tablet (10 mg total) by mouth daily 1 Active metoprolol XL (TOPROL-XL) 25 mg extended release tablet Take 1 tablet (25 mg total) by mouth every morning 2 Active gabapentin (NEURONTIN) 100 mg capsule Take 1 capsule (100 mg total) by mouth 3 (three) times a day 2 Active traMADoL (ULTRAM) 50 mg tablet Take by mouth every 6 (six) hours as needed 1 Active cyproheptadine (PERIACTIN) 4 mg tablet Take 1 tablet (4 mg total) by mouth 2 (two) times a day as needed for allergies Active DULoxetine DR (CYMBALTA) 60 mg capsule Take 1 capsule (60 mg total) by mouth daily Active magnesium chloride 71.5 mg tablet,delayed release (DR/EC) Take 71.5 mg by mouth 2 (two) times a day Active mirtazapine (REMERON) 15 mg tablet Take 1 tablet (15 mg total) by mouth nightly Active naltrexone 4.5 mg capsule Take 4.5 mg by mouth daily Active spironolactone (ALDACTONE) 25 mg tablet Take 1 tablet (25 mg total) by mouth daily 90 tablet 1 4 Active Active Problems Problem Noted Date Diagnosed Date Exertional chest pain 12/03/2018 History of aortic valve repl acement with bioprosthetic valve 02/17/2017 History of aortic root repair 02/17/2017 Social History Tobacco Use Types Packs/Day Years Used Date Smoking Tobacco: Never Smokeless Tobacco: Never Tobacco Cessation:Counseling Given: Not Answered Alcohol Use Standard Drinks/Week Comments Yes 0 (1 standard drink = 0.6 oz pur e alcohol) Sex and Gender Information Value Date Recorded Sex Assigned at Not on file 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 Gender Identity Not on file Sexual Orientation Not on file Last Filed Vital Signs Vital Sign Reading Time Taken Comments Blood Pressure 120/70 04/01/2024 10:41 AM CDT Pulse 44 04/01/2024 10:41 AM CDT Temperature 36.3 C (97.3 F) 01/19/2020 9:06 AM CDT Respiratory Rate 15 01/27/2020 3:37 PM CDT Oxygen Saturation 98% 04/01/2024 10:41 AM CDT Inhaled Oxygen Concentration - - Weight 71 kg (156 lb 9.6 oz) 04/01/2024 10:41 AM CDT Height 188 cm (6' 2 ) 04/01/2024 10:41 AM CDT Body Mass Index 20.11 04/01/2024 10:41 AM CDT Plan of Treatment Not on file Insurance MEDICARE [employer] MEDICARE [employer] MEDICARE [employer] Care Teams Cast Iron Drain Pipe Layer Relationship Specialty Start Date End Date Marcus Childs MD [address] [place] [address] PCP - General 12/11/16
--- OUTSIDE RECORDS SUMMARY | 2024-09-08 07:00 | XMS_ITS | Clinical Summary ---
Author Organization [facility] Address [address] [place] [address] Care Team Providers Care Floor Installation Mechanic Name Role Phone Marcus Childs MD Primary Care Provider Allergies No known active allergies Medications citalopram [...] 02/17/2017 History of aortic root repair 02/17/2017 Encounters Date Type Department Care Team Description 06/28/2024 Telephone [facility] Cardiology [address] [facility] [address] [place] [address] Reji Pierre MD Med Refill from Last 3 Months Surgical History Surgery Date Site/Laterality Comments CARDIAC SURGERY 07/14/2015 - 07/13/2016 open heart Medical History Medical History Date Comments Hypertension Hypertension Gastroesophageal reflux disease GERD Family History Medical History Relation Name Comments Cancer Father lung Unexplained Mother age Relation Name Status Comments Father Mother Social History Tobacco Use Types Packs/Day Years Used Date Smoking Tobacco: Never Smokeless Tobacco: Never Tobacco Cessation:Counseling Given: Not Answered Alcohol Use Standard Drinks/Week Comments Yes 0 (1 standard drink = 0.6 oz pur e alcohol) Sex and Gender Information Value Date Recorded Sex Assigned at Not on file 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 Gender Identity Not on file Sexual Orientation Not on file Obstetrics History Last Filed Vital Signs Vital Sign Reading [...] 04/01/2024 10:41 AM CDT Plan of Treatment Health Maintenance Due Date Last Done Comments Depression Screening 1940 DTaP/Tdap/Td Vaccine (1 - Tdap) 1953 Hepatitis B Screening 1960 Zoster Vaccine (1 of 2) 1992 Well Visit 65+ 12/30/2007 Pneumococcal vaccine 65+ (2 of 2 - PPSV23) 04/13/2019 04/13/2018 Fall Risk Assessment 01/26/2021 01/27/2020 Influenza Vaccine (#1) 2024 9, 04/09/2018, 04/03/2017, Additional history exists Insurance MEDICARE [employer] [facility] MEDICARE Address: [facility] [address] [place] [address] MEDICARE [employer] [facility] MEDICARE Address: [address] [address] [place] [address] MEDICARE [employer] [facility] MEDIC[facility] Address: [facility] [address] [place] [address] Care Teams Floor Installation Mechanic Relationship Specialty Start Date End Date Marcus Childs MD [address] [facility] [address] [place], [place] [id number] PCP - General 12/11/16
[2024-09-08 07:18] LABS: Estimated Glomerular Filt Rate 45
== END 2024-09-08 06:57 | disposition home or self-care (01) ==
PROVIDERS: PCP Internal Medicine; Visit Provider Internal Medicine
DX: K76.0 Fatty (change of) liver, not elsewhere classified (principal); S32.050A Wedge compression fracture of fifth lumbar vertebra, initial encounter for closed fracture; R63.4 Abnormal weight loss; X58.XXXA Exposure to other specified factors, initial encounter
CPT/HCPCS: 71260; 74177; Q9967

== ENCOUNTER 2024-12-24 10:25 | Outpatient (CLI) | payer MEDICARE, SELFPAY ==
--- OUTSIDE RECORDS SUMMARY | 2024-12-24 10:31 | XMS_ITS | Clinical Summary ---
Author Organization [facility] Address [address] [place] [address] Care Team Providers Care Education Courses Sales Representative Name Role Phone Marcus Childs MD Primary Care Provider [phone] Allergies No known active allergies Medications citalopram (CeleXA) 20 mg tablet take 1 Tablet by oral route every day 0 0 05/24/[address] (ACIPHEX) 20 mg EC tablet take 1 Tablet by oral route every day 0 0 11/23/19 14 Active atorvastatin (LIPITOR) 40 mg tablet TAKE 1 TABLET(40 MG) BY MOUTH DAILY 90 tablet 05/19/20 17 Active aspirin 81 mg tablet Take 1 tablet (81 mg total) by mouth daily Active HYDROcodone-ac etaminophen (NORCO) 5-325 mg per tabletIndicati ons:Pain Take 1 tablet by mouth every 6 (six) hours as needed Active folic acid (FOLVITE) 1 mg tablet Take 1 tablet (1 mg total) by mouth daily Active lisinopriL (PRINIVIL,ZEST RIL) 2.5 mg tablet TAKE 1 TABLET BY MOUTH DAILY 90 tablet 3 02/25/20 20 Active donepeziL (ARICEPT) 10 mg tablet Take 1 tablet (10 mg total) by mouth daily 01/22/20 21 Active metoprolol XL (TOPROL-XL) 25 mg extended release tablet Take 1 tablet (25 mg total) by mouth every morning 08/03/19 22 Active gabapentin (NEURONTIN) 100 mg capsule Take 1 capsule (100 mg total) by mouth 3 (three) times a day 08/06/19 22 Active traMADoL (ULTRAM) 50 mg tablet Take by mouth every 6 (six) hours as needed 07/11/20 21 Active cyproheptadine (PERIACTIN) 4 mg tablet Take [...] Take 4.5 mg by mouth daily Active Rexulti 0.25 mg tablet Take 1 tablet (0.25 mg total) by mouth daily 10/14/19 25 Active spironolactone (ALDACTONE) 25 mg tablet TAKE 1 TABLET(25 MG) BY MOUTH DAILY 90 tablet 1 11/30/19 25 Active spironolactone (ALDACTONE) 25 mg tablet Take 1 tablet (25 mg total) by mouth daily 90 tablet 1 06/28/20 24 025 Discontinued Active Problems Problem Noted Date Diagnosed Date Exertional chest pain 12/03/2018 History of aortic valve repl acement with bioprosthetic valve 02/17/2017 History of aortic root repair 02/17/2017 Encounters Date Type Department Care Team Description 10/25/2024 11:00 AM CDT Office Visit 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 Gender Identity Not on file Sexual Orientation Not on file Obstetrics History Last Filed Vital Signs Vital Sign Reading Time Taken Comments Blood Pressure 134/86 10/25/2024 11:01 AM CDT Pulse 70 10/25/2024 11:01 AM CDT Temperature 36.3 C (97.3 F) 01/19/2020 9:06 AM CDT Respiratory Rate 15 01/27/2020 3:37 PM CDT Oxygen Saturation 99% 10/25/2024 11:01 AM CDT Inhaled Oxygen Concentration - - Weight 67.1 kg (148 lb) 10/25/2024 11:01 AM CDT Height 188 cm (6' 2) 10/25/2024 11:01 AM CDT Body Mass Index 19 10/25/2024 11:01 AM CDT Plan of Treatment Health Maintenance Due Date Last Done Comments Depression Screening 1942 DTaP/Tdap/Td Vaccine (1 - Tdap) 1953 Hepatitis B Screening 1960 Zoster Vaccine (1 of 2) 1992 Well Visit 65+ 12/30/2007 Pneumococcal vaccine 65+ (2 of 2 - PPSV23) 04/13/2019 04/13/2018 Fall Risk Assessment 01/26/2021 01/27/2020 Influenza Vaccine (Season Ended) 2025 04/24/2019, 04/09/2018, 04/03/2017, Additional history exists Insurance [facility] [address] [facility] MEDICARE ADVANTAGE Care Teams Education Courses Sales Representative Relationship Specialty Start Date End Date Marcus Childs MD [address] [facility] [address] [place] [id number] PCP - General 12/11/16
--- OUTSIDE RECORDS SUMMARY | 2024-12-24 10:32 | XMS_ITS | Clinical Summary ---
Author Organization [facility] Address [address] [facility] [place] [address] Care Team Providers Care Leather Whitener Name Role Phone Unavailable Primary Care Provider Unavailabl e Source Comments [facility],non-owned Affiliates and Associated Physician Practices is amultiple site organization consisting of ambulatory clinics and hospital sitesin [place], [place], [place] and [place]. This disclosure is being madepursuant to the Care Everywhere program and may not contain all information available regarding this patient. Last updated 18.[facility] Encounters Date Type Department Care Team Description 10/05/2024 Lab Requisition [facility] - DermPath Lab [address] [facility] [place] [id number] Renee Castillo MD from Last 3 Months Social History Tobacco Use Types Packs/Day Years Used Date Smoking Tobacco: Never Assessed Sex and Gender Information Value Date Recorded Sex Assigned at Not on file Legal Sex Male 11:35 AM CDT Gender Identity Not on file Sexual Orientation Not on file Plan of Treatment Health Maintenance Due Date Last Done Comments DTAP/TDAP/TD VACCINES (1 - Tdap) 1961 PNEUMOCOCCAL VACCINE 50+ (1 of 1 - PCV) 1992 ZOSTER VACCINE (1 of 2) 1992 Respiratory Syncytial Virus (RSV) Vaccine Pt: or over 60 yrs (1 - 1-dose 75+ series) 2017 COVID-19 VACCINE ( - 2023-2 5 season) 2024 DEPRESSION SCREENING 07/14/2024 MEDICARE AWV CALENDAR YEAR 2024 INFLUENZA VACCINE (Season Ended) 2025 HEPATITIS B VACCINE Aged Out No longe r eligible based on patient's age to complete this topic HIB VACCINE Aged Out No longer eligi ble based on patient's age to complete this topic HPV VACCINE Aged Out No longer eligi ble based on patient's age to complete this topic MENINGOCOCCAL (Group B) VACC INE SHARED DECISION-MAKING Aged Out No longer eligibl e based on patient's age to complete this topic MENINGOCOCCAL GROUPS A/C/Y/W VACCINE Aged Out No longer eligible b ased on patient's age to complete this topic Procedures Procedure Name Priority Date/Time Associated Diagnosis Comments DERMATOPATHOLOGY Routine 10/05/2024 11:2 0 AM CDT from Last 3 Months Results * DERMATOPATHOLOGY (10/05/2024 11:20 AM CDT) Case Report Dermatopathology Report Case: [id number] Authorizing Provider: Renee Castillo MD Collected: 10/05/2024 11:20 AM Ordering Location: [facility] - Received: 10/06/2024 09:36 AM DermPath Lab Pathologist: Federico Acosta MD Specimen: Skin, left post auricular 6:02 PM CDT DERMATOPATHOLOGY LABORATORY Final Diagnosis Specimen A. 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 The specimen consists of a shave biopsy measuring 10x9x1 mm. Jar 0. 6:02 PM CDT DERMATOPATHOLOGY LABORATORY Microscopic Description Specimen A. SKIN, left post auricular: The dermis is infiltrated by nests of basaloid cells that show peripheral palisading and are associated with fibromyxoid stroma. Both mitotic figures and necrotic cells are identified. There are also areas with squamous differentiation and keratinization within the nests. 6:02 PM CDT DERMATOPATHOLOGY LABORATORY Disclaimer An external and internal positive and negative controls are appropriate for the histochemical, immunohistochemical and immunofluorescence stain(s) in this case (if any), except where stated explicitly. The performance characteristics of the stain(s) cited in this report were developed and its performance characteristic determined by the Dermatopathology Laboratory at [facility], directed by Dr. Tato Acosta. These tests need not be, and therefore are not, approved by the [place] Food and Drug Administration. The tests are used for clinical purposes. Billing Codes Specimen Charges Stain Charges 24876 1 5 6:02 PM CDT DERMATOPATHOLOGY LABORATORY Embedded Images 5 6:02 PM CDT DERMATOPATHOLOGY LABORATORY Pathology/Cytolo gy TISSUE SPECIMEN FROM SKIN / Unknown 10/05/2024 11:20 AM CDT 10/06/2024 9:36 AM CDT Renee Castillo MD LAB - PATHOLOGY/CYTOLOGY OR DERABLES Final Result Performing Organization Address City/State/[facility] Co de Phone Number DERMATOPATHOLOGY LABORATORY [facility] - Department of Dermatology [address], [address] [phone] from Last 3 Months Insurance [facility] MANAGED MEDICARE ADV
--- OUTSIDE RECORDS SUMMARY | 2024-12-24 10:32 | XMS_ITS | Referral Summary ---
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
--- OUTSIDE RECORDS SUMMARY | 2024-12-24 10:32 | XMS_ITS | Continuity of Care Document ---
Author Organization [facility] Address [address] [place] [address] [address] [place] [address] Phone Care Team Providers Care Railroad Brakeman Name Role Phone Lois Regan Unavailable Unavailable Procedures Procedure Date Eye Exam, New Patient Advance Directives Directive Yes / No Effective Date File Name No Information Encounters Encounter Description Practice Location Reason(s) For Visit Diagnoses Date Provider Providers Copied on Encounter [facility], [address] [place] [address] [address], [place], [place], [address], [place] tel:[phone] [facility] [place] No Information [address] [facility] , [address], [place], [address], [place]. tel:[phone] Family History Family Member Type Diagnosis Age At Onset No Information Payers Payer name Insurance type Covered libertarian ID Authoriza tion(s) No Information Social History Type Description Quantity Date Captured Comments Sex Male Smoking Status No Information Chief Complaint And Reason For Visit No Information Reason For Referral Reason For Referral No Information History Of Present Illness Encounter Date Complaint History Of Prese nt Illness No Information Functional Status Date Functional Assessmen t No Information Instructions Date Instruction Additional Infor mation No Information Assessments Type Assessment Date No Information Patient Care Teams Name Effective Dates (start - stop) Status Members No Information
--- OUTSIDE RECORDS SUMMARY | 2024-12-24 10:32 | XMS_ITS | Encounter Summary ---
Author Organization [facility] Address [address] [facility] [place] [address] Care Team Providers Care Director Payment Name Role Phone Unavailable Primary Care Provider Unavailabl e Encounter Details Date Type Department Care Team (Late st Contact Info) Description 10/05/2024 Lab Requisition [facility] - DermPath Lab [address] [facility] [place] [address] Renee Castillo MD [address] [facility] [address] [place] [address] Social History Tobacco Use Types Packs/Day Years Used Date Smoking Tobacco: Never Assessed Sex and Gender Information Value Date Recorded Sex Assigned at Not on file Legal Sex Male 11:35 AM CDT Gender Identity Not on file Sexual Orientation Not on file documented as of this encounter Plan of Treatment Not on file documented as of this encounter Procedures Procedure Name Priority Date/Time Associated Diagnosis Comments DERMATOPATHOLOGY Routine 10/05/2024 11:2 0 AM CDT documented in this encounter Results * DERMATOPATHOLOGY (10/05/2024 11:20 AM CDT) Case Report Dermatopathology Report Case: [id number] Authorizing Provider: Renee Castillo MD Collected: 10/05/2024 11:20 AM Ordering Location: [facility] - Received: 10/06/2024 09:36 AM DermPath Lab Pathologist: Federico Acosta MD Specimen: Skin, left post auricular 5 6:02 PM CDT DERMATOPATHOLOGY LABORATORY Final Diagnosis Specimen A. SKIN, left post auricular: BASAL CELL CARCINOMA, KERATOTIC TYPE (C44.41) 5 6:02 PM CDT DERMATOPATHOLOGY LABORATORY at 1802 [...] characteristic determined by the Dermatopathology Laboratory at [facility], directed by Dr. Tato Acosta. These tests need not be, and therefore are not, approved by the [place] Food and Drug Administration. The tests are used for clinical purposes. Billing Codes Specimen Charges Stain Charges 98029 1 5 6:02 PM CDT DERMATOPATHOLOGY LABORATORY Embedded Images 6:02 PM CDT DERMATOPATHOLOGY LABORATORY Pathology/Cytolo gy TISSUE SPECIMEN FROM SKIN / Unknown 10/05/2024 11:20 AM CDT 10/06/2024 9:36 AM CDT Renee Castillo MD LAB - PATHOLOGY/CYTOLOGY OR DERABLES Final Result DERMATOPATHOLOGY LABORATORY [facility] - Department of Dermatology [address] [phone] documented in this encounter Visit Diagnoses Not on filedocumented in this encounter
[2024-12-24 10:54] LABS: Basophils Absolute Auto 0.1 K/mm3 (0.0-0.1); Basophils Percent Auto 1.3 % (0.2-1.2); Eosinophils Absolute Auto 0.2 K/mm3 (0-0.3); Eosinophils Percent Auto 3.3 % (0-4.4); Hematocrit 44.3 % (42.0-52.0); Hemoglobin 14.7 g/dL (14.0-18.0); Immature Granulocyte Absolute 0.02 K/mm3 (0.00-0.031); Immature Granulocyte Percent A 0.3 % (0-0.5); Immature Platelet Fraction Pct 6.5 % (0.9-11.2); Lymphocytes Absolute Auto 1.01 K/mm3 (0.9-3.2); Lymphocytes Percent Auto 16.8 % (18.3-44.2); Mean Corpuscular HGB Conc 33.2 g/dl (32-36); Mean Corpuscular Hemoglobin 32.9 pg (26-34); Mean Corpuscular Volume 99.1 fl (80-100); Mean Platelet Volume 11.3 fl (7.4-10.4); Monocytes Absolute Auto 0.7 K/mm3 (0.1-0.6); Monocytes Percent Auto 10.8 % (2.6-8.5); Neutrophils Absolute Auto 4.1 K/mm3 (1.3-6.7); Neutrophils Percent Auto 67.5 % (45.5-73.1); Platelet Count Result 124 k/mm3 (150-375); Red Blood Count 4.47 M/mm3 (4.6-6.20); Red Cell Distribution Width 13.5 % (11.5-14.5)
[2024-12-24 11:06] LABS: Alanine Aminotransferase 13 U/L (6-50); Albumin Level 3.7 g/dL (3.5-5.1); Alkaline Phosphatase 76 U/L (38-126); Anion Gap 4 mmol/L (4-12); Aspartate Amino Transferase 23 U/L (17-59); Bilirubin,Total 1.1 mg/dL (0.2-1.3); Blood Urea Nitrogen 16 mg/dL (9-20); CRP < 0.5 mg/dL (<1.0); Calcium 9.8 mg/dL (8.4-10.2); Carbon Dioxide 29 mmol/L (22-30); Chloride 107 mmol/L (98-107); Cholesterol 143 mg/dL (0-200); Estimated Glomerular Filt Rate 55; Glucose 99 mg/dL (65-110); HDL Direct 63 mg/dL; Potassium 4.6 mmol/L (3.4-5.0); Sodium 140 mmol/L (137-145); Total Protein 6.3 g/dL (6.3-8.2); Triglycerides 79 mg/dL (<150)
[2024-12-24 11:14] LABS: LDL Cholesterol Direct 49 mg/dL
[2024-12-24 11:22] LABS: Erythrocyte Sedimentation Rate 3 mm/hr (0-20)
== END 2024-12-24 10:26 | disposition home or self-care (01) ==
PROVIDERS: PCP Internal Medicine; Visit Provider Internal Medicine
DX: M35.3 Polymyalgia rheumatica (principal); I10 Essential (primary) hypertension; E78.2 Mixed hyperlipidemia
CPT/HCPCS: 36415; 80053; 80061; 85025; 85055; 85652; 86140

== ENCOUNTER 2025-01-28 15:39 | Observation (INO) | payer MEDICARE, SELFPAY ==
[2025-01-28] VITALS (23 sets, daily range): BP systolic 125–143; BP diastolic 74–97; PULSE 80–96; RESP 16–29; TEMP 35.9–36.6; O2SAT 91–100; BMI 17.6; BMI 18.9
--- NOTE | ~2025-01-28 | XR_ITS ---
Portable chest x-ray Comparison: 01/28/2025 Clinical History: Pneumonia Findings: Stable calcified plaque or nodules at the left upper lobe region. No acute pulmonary abnor mality seen. Probable COPD. Cardiomediastinal silhouette is stable, with aortic valve replacement. B ones and soft tissues are unremarkable. Impression: No acute abnormality. 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 Reviewed, dictated and finalized at location . Impression: No acute abnormality. 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
--- NOTE | ~2025-01-28 | US_ITS ---
Renal-Bladder ultrasound Clinical History: Urinary frequency Technique: Real-time sonographic imaging of the kidneys and urinary bladder was performed. Findings: The right kidney measures 9.5 cm in length and the left kidney measures 10.2 cm. There is n o hydronephrosis or renal calculus identified. Renal cortical echogenicity is within normal limits. R ight renal cysts are present. The urinary bladder is moderately distended at the time of this exam. No intraluminal echoes are iden tified. No abnormal wall thickening is seen. Impression: No significant abnormality. Reviewed, dictated and finalized at location M. Impression: No significant abnormality.
--- NOTE | ~2025-01-28 | XR_ITS ---
XR chest 2V Ordering provider: Wally Ulloa MD History: 84 years Male with . confusion . Comparison: July 31, 2021. FINDINGS: MEDIASTINUM: The cardiac silhouette is slightly enlarged. Postoperative changes in the mediastinum. LUNGS: No infiltrates, effusions or pneumothorax. Pleural calcification seen in the mid zone. Underly ing emphysematous changes. OTHER: No free air under the diaphragm. IMPRESSION: No acute cardiopulmonary pathology. Reviewed, dictated and finalized at location A.
[2025-01-28 16:38] LABS: Hematocrit 42.8 % (42.0-52.0); Hemoglobin 14.2 g/dL (14.0-18.0); Immature Granulocyte Percent A 0.3 % (0-0.5); Immature Platelet Fraction Pct 7.6 % (0.9-11.2); Lymphocytes Absolute Auto 0.72 K/mm3 (0.9-3.2); Mean Corpuscular HGB Conc 33.2 g/dl (32-36); Mean Corpuscular Hemoglobin 32.7 pg (26-34); Mean Corpuscular Volume 98.6 fl (80-100); Nucleated Red Blood Cells Absolute Auto 0.000 K/mm3 (0.0-0.012); Nucleated Red Blood Cells Perc 0.0 % (0.0-0.2); Platelet Count Result 138 k/mm3 (150-375); Red Blood Count 4.34 M/mm3 (4.6-6.20); White Blood Count 7.9 K/mm3 (4.5-10.0)
[2025-01-28 16:49] LABS: INR 1.1; Prothrombin Time 13.9 Seconds (11.1-14.7)
[2025-01-28 16:50] LABS: Partial Thromboplastin Time 43.2 Seconds (22.3-36.8)
[2025-01-28 17:11] LABS: Influenza A QL RT-PCR Negative (Negative); Influenza B QL RT-PCR Negative (Negative); RSV RNA, RT-PCR Negative (Negative); SARS-CoV-2 RNA PCR Negative (Negative)
--- OUTSIDE RECORDS SUMMARY | 2025-01-28 17:48 | XMS_ITS | Clinical Summary ---
Author Organization [facility] Address [address] [place] [address] Care Team Providers Care Mold Design Engineer Name Role Phone Marcus Childs MD Primary Care Provider [phone] Allergies No known active allergies Medications citalopram [...] tablet (0.25 mg total) by mouth daily 5 Active spironolactone (ALDACTONE) 25 mg tablet TAKE 1 TABLET(25 MG) BY MOUTH DAILY 90 tablet 1 5 Active Active Problems Problem Noted Date Diagnosed Date Exertional chest pain 12/03/2018 History of aortic valve repl acement with bioprosthetic valve 02/17/2017 History of aortic root repair 02/17/2017 Surgical History Surgery Date Site/Laterality Comments CARDIAC [...] on file 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
--- OUTSIDE RECORDS SUMMARY | 2025-01-28 17:48 | XMS_ITS | Clinical Summary ---
Author Organization [facility] Address [address] [place] [address] Care Team Providers Care Metal Sash Setter Name Role Phone Unavailable Primary Care Provider Unavailabl e Source Comments [facility],non-owned Affiliates and Associated Physician Practices is amultiple site organization consisting of ambulatory clinics and hospital sitesin [place], [place], [place] and [place]. This disclosure is being madepursuant to the Care Everywhere program and may not contain all information available regarding this patient. Last updated 18.[facility] Social History Tobacco Use Types Packs/Day Years [...] MEDICARE AWV CALENDAR YEAR 2024 INFLUENZA VACCINE (#1) 2025 HEPATITIS B VACCINE Aged Out No [...] on patient's age to complete this topic Insurance [facility] [place] [address]
--- OUTSIDE RECORDS SUMMARY | 2025-01-28 17:48 | XMS_ITS | Encounter Summary ---
Author Organization [facility] Address [address] [facility] [place] [address] Care Team Providers Care Boat Master Name Role Phone Unavailable Primary Care Provider Unavailabl e Encounter Details Date Type Department Care Team (Late st Contact Info) Description 10/05/2024 Lab Requisition [facility] - DermPath Lab [address] [facility] [place] [address] Renee Castillo MD [address] [facility] [address] [place] [address] Social History Tobacco Use Types Packs/Day Years [...] AM CDT) Case Report Dermatopathology Report Case: [id number] Authorizing Provider: Renee Castillo MD Collected: 10/05/2024 11:20 AM Ordering Location: [facility] - Received: 10/06/2024 09:36 AM DermPath Lab [...] characteristic determined by the Dermatopathology Laboratory at [facility], directed by Dr. Tato Acosta. These tests need not be, and therefore are not, approved by the [place] Food and Drug Administration. The tests are used for clinical purposes. Billing Codes Specimen Charges Stain Charges 68556 1 5 6:02 PM CDT DERMATOPATHOLOGY LABORATORY Embedded Images 6:02 PM CDT DERMATOPATHOLOGY LABORATORY Pathology/Cytolo gy TISSUE SPECIMEN FROM SKIN / Unknown 10/05/2024 11:20 AM CDT 10/06/2024 9:36 AM CDT Renee Castillo MD LAB - PATHOLOGY/CYTOLOGY OR DERABLES Final Result DERMATOPATHOLOGY LABORATORY [facility] - Department of Dermatology [address] [phone] documented in this encounter Visit Diagnoses Not on filedocumented in this encounter
--- OUTSIDE RECORDS SUMMARY | 2025-01-28 17:48 | XMS_ITS | Continuity of Care Document ---
Author Organization [facility] Address [address] [place] [address] [address] [place] [address] Phone Care Team Providers Care Marketing Specialist Name Role Phone Lois Regan Unavailable Unavailable Procedures Procedure Date Eye Exam, New Patient Advance Directives Directive Yes / No Effective Date File Name No Information Encounters Encounter Description Practice Location Reason(s) For Visit Diagnoses Date Provider Providers Copied on Encounter [facility], [address] [place] [address] [address], [place], [place], [address], [place] tel:[phone] [facility] [place] No Information [address] [facility] , [address], [place], [address], [place]. tel:[phone] Family History Family Member Type Diagnosis Age At Onset No Information Payers Payer name Insurance type Covered green party ID Authoriza tion(s) No Information Social History [...]
--- OUTSIDE RECORDS SUMMARY | 2025-01-28 17:48 | XMS_ITS | Referral Summary ---
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
--- OUTSIDE RECORDS SUMMARY | 2025-01-28 17:48 | XMS_ITS | Patient Health Record ---
Author Organization [facility] [employer] Address [address] [facility] [address] [place] [address] Care Team Providers Care Framer Name Role Phone Kymberly Alonzo Unavailable [phone] Reason For Referral No Information Medications Medication SIG (Take, Route, Frequency, Duration) Notes Start Date End Date Status Citalopram Hydrobromide 20 MG Oral 09/17/2021 Active Atorvastatin Calcium 40 MG Oral 09/17/2021 Active Gabapentin 100 MG Oral 09/17/2021 A ctive Memantine HCl 5 MG Oral 09/17/2021 Active Spironolactone 25 MG Oral 09/17/2021 Active Donepezil HCl 10 MG Oral 09/17/2021 Active Carvedilol 3.125 MG Oral 09/17/2021 Active Folic Acid 1 MG Oral 09/17/2021 Act vimal Magnesium Oxide (Elemental) 400 MG Oral *Reorder from [employer] for eRx and Interaction Alerts* 09/17/2021 Active Cyproheptadine HCl 4 MG Oral 09/17/2021 Active Ibuprofen 600 MG Oral 09/17/2021 Ac tive Namenda 5 MG Oral 09/17/2021 Active DULoxetine HCl 60 MG Oral 09/17/2021 Active Sildenafil Citrate 100 MG Oral 09/17/2021 Active traMADol HCl 50 MG Oral 09/17/2021 Active Metoprolol Succinate ER 25 MG Oral 09/17/2021 Active Lidocaine 5% External 09/17/2021 Active HYDROcodone-Acetaminop hen 5-325 MG Oral 09/17/2021 Active Lisinopril 2.5 MG Oral 09/17/2021 A ctive predniSONE 20 MG Oral 09/17/2021 Ac tive Meloxicam 15 MG Oral 09/17/2021 Act vimal Azelastine HCl 137 MCG/SPRAY Nasal 09/17/2021 Active predniSONE 10 MG Oral 09/17/2021 Ac tive RABEprazole Sodium 20 MG Oral 09/17/2021 Active Immunizations Vaccine Route Administration Date Status Comme nts Pfizer Biontech Covid-19 Vac cine 2nd dose Unknown 10/23/2020 Administered Pfizer Biontech Covid-19 Vac cine 2nd dose Unknown 11/13/2020 Administered Plan Of Treatment No Information Insurance Providers Payer Name Payer Address Payer Phone Subscriber Number Group Number Insured Name Patient Relationship to Insured Coverage Start Date Coverage End Date [facility] [address] [place] [address] [id number] VIRAJ PRETTY Self - patient is the insured
--- NOTE | 2025-01-28 18:05 | ED_ITS ---
HPI - General Adult General Chief complaint: Urogenital-Male Stated complaint: urogenital male Time Seen by Provider: 01/28/25 15:44 History of Present Illness HPI narrative: 84 male with history of dementia present to the emergency department for evaluation for increased urinary symptoms. Patient's POA is present and states that she does care for him and his trailer home but states due to his worsening dementia she feels she is unable to care for him at home anymore. Related Data Home Medications ?Medication ?Instructions ?Recorded ?Confirmed ?Last Taken ?Type aspirin 81 mg tablet,delayed 81 mg PO QAM 06/19/21 01/05/25 07/10/21 History release (Adult Aspirin Regimen) naltrexone 4.5 mg capsule mg PO 07/24/23 01/05/25 Unknown History spironolactone 25 mg tablet 25 mg PO DAILY 07/24/23 01/05/25 Unknown History Allergies Allergy/AdvReac Type Severity Reaction Status Date / Time No Known Allergies Allergy Verified 01/28/25 15:46 Review of Systems 2 Review of Systems: All systems reviewed & are unremarkable except as noted in HPI and below PMFSH Past Medical History Medical History (Updated 01/28/25 @ 22:13 by Wally Ulloa MD) Skin cancer Adult BMI <19 kg/sq m Tardive dyskinesia Adult BMI 19-24 kg/sq m Non-healing skin lesion Age related osteoporosis Left knee DJD Degenerative joint disease of right knee Knee effusion, left Cellulitis Fall Strain of right knee Right groin pain Encounter for routine adult health examination with abnormal findings Inguinal hernia Hemochromatosis Primary osteoarthritis 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 Diverticular disease Decreased pedal pulses Aphthous ulcer of mouth Weakness Syncope and collapse BMI 22.0-22.9, adult Groin pain Abnormal thyroid function test Ascending aortic aneurysm Cardiac arrhythmia Rhinorrhea Fatigue Post herpetic neuralgia Follow up Shingles Hypomagnesemia BMI 20.0-20.9, adult Effusion, right knee HTN (hypertension), malignant Plantar fasciitis Anemia Impaired functional mobility, balance, gait, and endurance BMI 21.0-21.9, adult Debility Follow up Fall PMR (polymyalgia rheumatica) Multiple joint pain Unexplained weight loss Hearing loss Pulmonary granuloma Ventricular bigeminy Bradycardia Mass of right parotid gland Sore throat AB (asthmatic bronchitis) Bronchitis URI (upper respiratory infection) Elevated homocysteine GERD (gastroesophageal reflux disease) CAD (coronary artery disease) History of hemochromatosis Depressed mood Cognitive dysfunction Hyperlipidemia Chronic low back pain ASHD (arteriosclerotic heart disease) Surgical History Surgical History Status post cataract surgery S/P tooth extraction H/O right inguinal hernia repair 07/11/21 S/P AVR (aortic valve replacement) History of colon resection Family History Family History Sibling Hypertension Family history of malignant neoplasm of bone Father Family history of emphysema Family history of tuberculosis Family history of malignant neoplasm Mother Hypertension Family history of Parkinson's disease Social History Social History Social History: The patient stated that he is and has 2 children. The patient stated that he is a full code. And he has a male friend that is does needed to be a durable power workers compensation defense attorney but could remember same at this point. The patient stated that he lives with a female friend. 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 The patient stated he is a lifelong nonsmoker. He does not drink or use marijuana or illicit drugs. Smoking status: Former smoker Second hand tobacco smoke exposure: Yes (STATES VERY RARELY) Additional smoking assessment comments: STATES SMOKED FOR SHORT TIME WHILE IN THE [employer] - UNABLE TO RECALL AMOUNT Alcohol intake: never Substance use: never Substance use type: does not use Lack of Transportation: No Lack of Food: Never True Current Housing: I Have Housing Concerned About Future Housing: No Difficulty Paying Gas/Electric Bills: No Difficulty Paying for Meds: No Currently Unemployed: No Education: High School Diploma/GED Difficulty w/ Childcare or Family Care: No Living arrangements: with friend(s) Additional living arrangements comments: LIVES WITH SIGNIFICANT OTHER Occupation/Education: occupation Gender identity (if verbalized by the patient): Male Spiritual care concerns: No Exam 2 Narrative: APPEARANCE: Well appearing, no pain, no distress, well-nourished. HEAD: normocephalic, atraumatic. EYES: PERRLA/EOMI, conjunctivae clear. NOSE: Normal no drainage EARS:TMS clear with good light reflex. THROAT: Pharynx clear, no exudate. NECK: Supple. No adenopathy, no masses. RESPIRATORY: Airway patent, respirations nonlabored. Clear to auscultation bilaterally, no rales, rhonchi, wheezing. CARDIOVASCULAR: Regular rate and rhythm without murmurs rubs or gallops. ABDOMINAL: Soft, nontender, nondistended, normal bowel sounds MUSCULOSKELETAL: Moves all extremities. Strength/ROM intact, No edema, No calf tenderness. NEURO: Alert. Cranial nerves II through XII intact. Good gait. Good coordination SKIN: Warm, dry. Normal Color Course Vital Signs Vital signs: Vital Signs Pulse Rate 95 01/28/25 15:42 Respiratory Rate 26 H 01/28/25 15:42 Pulse Oximetry 100 01/28/25 15:42 Temperature 97.9 F 01/28/25 19:46 Pulse Rate 86 01/28/25 19:46 Respiratory Rate 20 01/28/25 19:46 Blood Pressure 132/74 01/28/25 19:46 Pulse Oximetry 98 01/28/25 19:46 Medical Decision Making MDM Narrative Medical decision making narrative: 84-year-old male present to the emergency department for evaluation for increased urinary frequency. Patient's UA was negative for infection. Patient had no postvoid residual urine. Patient is afebrile with no leukocytosis hemoglobin 14.2. INR 1.1. No significant acute abnormalities on the patient's CMP UA was negative for infection patient was negative for influenza RSV and for COVID. Chest x-ray was negative for pneumonia. Patient's caregiver states she is unable to care for the patient currently at home because he is a flight risk and she states she has to keep a constant eye on on min she is not being able to sleep or get anything done. Case was discussed with hospitalist and care coordination was consulted. Differential Diagnosis Differential Diagnosis: COVID, RSV, influenza, pneumonia, UTI, worsening dementia Vital Signs Vital Signs: Vital Signs Pulse Rate 95 01/28/25 15:42 Respiratory Rate 26 H 01/28/25 15:42 Pulse Oximetry 100 01/28/25 15:42 Temperature 97.9 F 01/28/25 19:46 Pulse Rate 86 01/28/25 19:46 Respiratory Rate 20 01/28/25 19:46 Blood Pressure 132/74 01/28/25 19:46 Pulse Oximetry 98 01/28/25 19:46 Lab Data Lab results reviewed: Yes I reviewed the patient's lab results. 01/28/25 16:29 01/28/25 20:58 Labs: Lab Results 01/28/25 01/28/25 Range/Units 16:29 17:55 WBC 7.9 (4.5-10.0) K/mm3 RBC 4.34 L (4.6-6.20) M/mm3 Hgb 14.2 (14.0-18.0) g/dL Hct 42.8 (42.0-52.0) % MCV 98.6 (80-100) fl MCH 32.7 (26-34) pg MCHC 33.2 (32-36) g/dl RDW 13.5 (11.5-14.5) % Plt Count 138 L (150-375) k/mm3 MPV 11.6 H (7.4-10.4) fl Immature Gran % (Auto) 0.3 (0-0.5) % Neut % (Auto) 77.2 H (45.5-73.1) % Lymph % (Auto) 9.1 L (18.3-44.2) % George % (Auto) 12.4 H (2.6-8.5) % Eos % (Auto) 0.4 (0-4.4) % Baso % (Auto) 0.6 (0.2-1.2) % Lymph # (Auto) 0.72 L (0.9-3.2) K/mm3 George # (Auto) 1.0 H (0.1-0.6) K/mm3 Eos # (Auto) 0.0 (0-0.3) K/mm3 Baso # (Auto) 0.1 (0.0-0.1) K/mm3 Abs Immat Gran (auto) 0.02 (0.00-0.031) K/mm3 Absolute Neuts (auto) 6.1 (1.3-6.7) K/mm3 Absolute Nucleated RBC 0.000 (0.0-0.012) K/mm3 Nucleated RBC % 0.0 (0.0-0.2) % % Immature Plt Fraction 7.6 (0.9-11.2) % PT 13.9 (11.1-14.7) Seconds INR 1.1 APTT 43.2 H (22.3-36.8) Seconds Urine Color Dark yellow (Yellow) Urine Appearance Clear (Clear) Urine pH 6.5 (5.0-9.0) Ur Specific [place] 1.030 (1.001-1.035) Urine Protein 1+ H (Negative) mg/dL Urine Glucose (UA) Negative (Negative) mg/dL Urine Ketones 1+ H (Negative) mg/dL Ur Blood (Man) Negative (Negative) Urine Nitrate Negative (Negative) Urine Bilirubin Negative (Negative) Urine Urobilinogen 1.0 (<2.0) mg/dL Leukocyte Esterase Rfl Trace H (Negative) ROBBIE/UL Urine RBC 0-2 (0-2) /hpf Urine WBC 0-5 (0-3) /hpf Ur Squamous Epith Cells None seen (Few) /hpf Urine Bacteria None seen /hpf Urine Casts 0-2 Influenza A (RT-PCR) Negative (Negative) Influenza B (RT-PCR) Negative (Negative) RSV (RT-PCR) Negative (Negative) SARS-CoV-2 RNA (RT-PCR) Negative (Negative) Imaging Data Radiologist's impression: Impressions Chest X-Ray 01/28/25 16:08 IMPRESSION: No acute cardiopulmonary pathology. Discharge Plan Discharge Clinical Impression: Adult failure to thrive, Dementia Patient Disposition: Still a Patient Condition: Stable
[2025-01-28 18:08] LABS: Add Urine Microscopic? YES; Appearance Urine Clear (Clear); Glucose Urine UA Negative (Negative); Leukocyte Esterase Ur Trace LEU/UL (Negative); Nitrate Urine Negative (Negative); Non Pathogenic Casts 0-2; Specific Grav Ur 1.030 (1.001-1.035)
--- NOTE | 2025-01-28 20:09 | P.HP_ITS ---
H&P: HPI History of Present Illness Date/Time: 01/28/25 20:09 Chief Complaint: Progressing dementia Narrative: 84-year-old male with past medical history of CAD, frequent falls, dementia, tardive dyskinesia, malnutrition and skin cancer brought into the hospital because family increased urination and no longer care for him at home. Family is lines look into placement options. Patient constantly feels like he has to urinate. Patient is very restless because of this. Patient has no complaints. Patient's UA has trace leukocyte esterase. CMP within normal limits. Patient being admitted for evaluation for placement and failure to thrive. 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 Diverticular disease Decreased pedal pulses Aphthous ulcer of mouth Weakness Syncope and collapse BMI 22.0-22.9, adult Groin pain Abnormal thyroid function test Ascending aortic aneurysm Cardiac arrhythmia Rhinorrhea Fatigue Post herpetic neuralgia Follow up Shingles Hypomagnesemia BMI 20.0-20.9, adult Effusion, right knee HTN (hypertension), malignant Plantar fasciitis Anemia Impaired functional mobility, balance, gait, and endurance BMI 21.0-21.9, adult Debility Follow up Fall PMR (polymyalgia rheumatica) Multiple joint pain Unexplained weight loss Hearing loss Pulmonary granuloma Ventricular bigeminy Bradycardia Mass of right parotid gland Sore throat AB (asthmatic bronchitis) Bronchitis URI (upper respiratory infection) Elevated homocysteine GERD (gastroesophageal reflux disease) CAD (coronary artery disease) History of hemochromatosis Depressed mood Cognitive dysfunction Hyperlipidemia Chronic low back pain ASHD (arteriosclerotic heart disease) Surgical History Surgical History Status post cataract surgery S/P tooth extraction H/O right inguinal hernia repair 07/11/21 S/P AVR (aortic valve replacement) History of colon resection Family History Family History Sibling Hypertension Family history of malignant neoplasm of bone Father Family history of emphysema Family history of tuberculosis Family history of malignant neoplasm Mother Hypertension Family history of Parkinson's disease Social History Social History Social History: The patient stated that he is and has 2 children. The patient stated that he is a full code. And he has a male friend that is does needed to be a durable power supervisor screen making but could remember same at this point. The patient stated that he lives with a female friend. 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 The patient stated he is a lifelong nonsmoker. He does not drink or use marijuana or illicit drugs. Smoking status: Unknown if ever smoked Second hand tobacco smoke exposure: No Additional smoking assessment comments: STATES SMOKED FOR SHORT TIME WHILE IN THE [employer] - UNABLE TO RECALL AMOUNT Alcohol intake: unknown Substance use: never Substance use type: does not use Lack of Transportation: No Lack of Food: Never True Current Housing: I Have Housing Concerned About Future Housing: No Difficulty Paying Gas/Electric Bills: No Difficulty Paying for Meds: No Currently Unemployed: No Education: High School Diploma/GED Difficulty w/ Childcare or Family Care: No Living arrangements: with friend(s) Additional living arrangements comments: LIVES WITH SIGNIFICANT OTHER Occupation/Education: occupation Gender identity (if verbalized by the patient): Male Spiritual care concerns: No Meds Home Medications and Allergies Home Medications ?Medication ?Instructions ?Recorded ?Confirmed ?Type magnesium chloride 71.5 mg 71.5 mg PO BID #60 tabs 04/16/21 01/28/25 Rx (magnesium chloride) tablet,delayed release (Slow-Mag) aspirin 81 mg tablet,delayed 81 mg PO QAM 06/19/21 01/28/25 History release (Adult Aspirin Regimen) naltrexone 4.5 mg capsule 4.5 mg PO DAILY 07/24/23 01/28/25 History donepezil 10 mg tablet See Rx Instructions .Route 09/02/24 01/28/25 Rx .COMPLEX #90 tabs rabeprazole 20 mg tablet,delayed See Rx Instructions .Route 09/02/24 01/28/25 Rx release .COMPLEX #90 tabs folic acid 1 mg tablet See Rx Instructions .Route 09/08/24 01/28/25 Rx .COMPLEX #90 tabs duloxetine 60 mg capsule,delayed See Rx Instructions .Route 10/04/24 01/28/25 Rx release .COMPLEX #90 caps brexpiprazole 0.25 mg tablet 0.25 mg PO DAILY #90 tabs 10/13/24 01/28/25 Rx (Rexulti) atorvastatin 40 mg tablet See Rx Instructions .Route 11/29/24 01/28/25 Rx .COMPLEX #90 tabs trazodone 50 mg tablet 50 mg PO QHS PRN insomnia #90 tabs 01/04/25 01/28/25 Rx cyproheptadine 4 mg tablet See Rx Instructions .Route 01/05/25 01/28/25 Rx .COMPLEX #60 tabs gabapentin 100 mg capsule See Rx Instructions .Route 01/10/25 01/28/25 Rx .COMPLEX #90 caps mirtazapine 30 mg tablet 30 mg PO QHS #90 tabs 01/10/25 01/28/25 Rx naltrexone 4.5 mg capsule 4.5 mg PO DAILY@0800 01/28/25 01/28/25 History Allergies Allergy/AdvReac Type Severity Reaction Status Date / Time No Known Allergies Allergy Verified 01/28/25 22:57 Vital Signs Vital Signs - 24 hr 01/28/25 15:42 01/28/25 15:43 01/28/25 15:43 Temperature 97.6 F Pulse Rate 95 89 84 Respiratory Rate 26 H 16 19 Blood Pressure 143/87 H 143/87 H Pulse Oximetry 100 98 99 01/28/25 15:45 01/28/25 15:47 01/28/25 16:04 Temperature Pulse Rate 88 96 Respiratory Rate 24 H 18 Blood Pressure 137/86 Pulse Oximetry 91 99 100 01/28/25 16:15 01/28/25 16:30 01/28/25 16:45 Temperature Pulse Rate 81 91 82 Respiratory Rate 20 17 23 H Blood Pressure Pulse Oximetry 98 99 99 01/28/25 17:00 01/28/25 17:15 01/28/25 17:30 Temperature Pulse Rate 89 80 86 Respiratory Rate 29 H 20 18 Blood Pressure Pulse Oximetry 97 100 100 01/28/25 17:45 01/28/25 18:00 01/28/25 18:15 Temperature Pulse Rate 92 90 89 Respiratory Rate 20 19 19 Blood Pressure Pulse Oximetry 95 100 01/28/25 18:30 01/28/25 18:45 01/28/25 19:00 Temperature Pulse Rate 93 80 81 Respiratory Rate 27 H 18 17 Blood Pressure Pulse Oximetry 100 99 98 01/28/25 19:02 01/28/25 19:15 01/28/25 19:15 Temperature Pulse Rate 84 90 94 Respiratory Rate 17 18 18 Blood Pressure 125/80 125/90 Pulse Oximetry 98 98 95 01/28/25 19:16 01/28/25 19:32 01/28/25 19:46 Temperature 97.9 F Pulse Rate 93 81 86 Respiratory Rate 17 17 20 Blood Pressure 134/79 142/97 H 132/74 Pulse Oximetry 98 98 98 Exam Narrative: General: well appearing, appears stated age. HEENT: normocephalic, atraumatic. Mucous membranes moist. EOMI, PERRLA, bilateral sclera anicteric, no conjunctival injection. Neck supple without JVD, lymphadenopathy, or bruit. Respiratory: clear to ascultation bilaterally. No rales/rhonic/wheezes. Cardiovascular: Regular rate and rhythm, normal S1-S2 upon ascultation. No murmurs, rubs, or clicks. PMI is nondisplaced, capillary refill less than 3 second. Abdomen: Soft, round, no pulsatile masses, nondistended and nontender. No rebound, no guarding. No CVA tenderness, no hepatosplenomegaly. Bowel sounds present to all four quadrants. No high pitch or tinkling sounds, resonant to percussion. Extremities: No cyanosis, clubbing, or edema present. Pulses are palpable 2/2. Active ROM to all four extremities. Neuro: Alert and orientated x 1-2. PERRLA. Cranial nerves 2-12 intact without focal deficit. Skin: Warm, dry, and intact, without rash, erythema, or lesion. Psych: pleasant, cooperative, normal speech, normal affect, no hallucinations, no dysarthia H&P: Results Labs Labs: Short CBC 01/28/25 Range/Units 16:29 WBC 7.9 (4.5-10.0) K/mm3 Hgb 14.2 (14.0-18.0) g/dL Hct 42.8 (42.0-52.0) % Plt Count 138 L (150-375) k/mm3 Urine 01/28/25 Range/Units 17:55 Urine Color Dark yellow (Yellow) Urine Appearance Clear (Clear) Urine pH 6.5 (5.0-9.0) Ur Specific [place] 1.030 (1.001-1.035) Urine Protein 1+ H (Negative) mg/dL Urine Glucose (UA) Negative (Negative) mg/dL Assessment and Plan Assessment and plan (1) Fall: Qualifiers: Encounter type: subsequent encounter Qualified Code(s): W19.XXXD - Unspecified fall, subsequent encounter Code(s): W19.XXXA - Unspecified fall, initial encounter Status: Resolved Assessment and Plan: Patient is frequently falling at home the girlfriend states about 10 falls a month. She states that due to his progressive dementia she is unable to care for him. PT OT eval for placement Fall precaution (2) UTI (urinary tract infection): Code(s): N39.0 - Urinary tract infection, site not specified Status: Acute Assessment and Plan: IV Rocephin Culture and sensitivity pending (3) Failure to thrive: Status: Acute Assessment and Plan: Nutrition consulted PT OT consulted Will likely need placement (4) Dementia: Code(s): F03.90 - Unspecified dementia, unspecified severity, without behavioral disturbance, psychotic disturbance, mood disturbance, and anxiety Status: Acute Assessment and Plan: Continues Alzheimer's medications Zyprexa and trazodone for sleep hygiene (5) Depressed mood: Code(s): R45.89 - Other symptoms and signs involving emotional state Status: Acute Assessment and Plan: Continue Cymbalta (6) CAD (coronary artery disease): Qualifiers: Coronary Disease-Associated Artery/Lesion type: unspecified vessel or lesion type [place] vs. transplanted heart: [place] heart Associated angina: with unspecified angina Qualified Code(s): I25.119 - Atherosclerotic heart disease of [place] coronary artery with unspecified angina pectoris Code(s): I25.10 - Atherosclerotic heart disease of [place] coronary artery without angina pectoris Status: Acute Assessment and Plan: Continue Lipitor in aspirin Does not appear to be on anticoagulant, as he is not safe to be on 1 from frequent falls (7) Hyperlipidemia: Qualifiers: Hyperlipidemia type: mixed hyperlipidemia Qualified Code(s): E78.2 - Mixed hyperlipidemia Code(s): E78.5 - Hyperlipidemia, unspecified Status: Acute Assessment and Plan: Continue statin Quality VTE Prophylaxis VTE prophylaxis: mechanical ordered If No VTE Prophylaxis Answer both mechanical and pharmacologic: Reason no pharmacologic proph: medical contraindication Hospitalist MIPS Advance Care Plan I have confirmed that the patient's Advanced Care Plan is present, code status is documented, or surrogate decision maker is listed in patient medical record.: Yes Medication Reconciliation I have utilized all available resources to obtain, update and review the patients current medications (includes all prescriptions, OTC, herbals, cannabis, and nutritional supplements).: Yes
--- NOTE | 2025-01-28 21:14 | ADMGEN ---
This patient, Marcel Awad, was admitted to 3 [facility] Surg Room 322-01. Patient/family oriented to hospital policies and general routines including ID bracelet, bed and alarms, visiting hours, pain management, procedures, bathroom and other care routines, personal items, smoking policy, room service/diet, and visiting hours. Information on how to activate the Rapid Response Team has been discussed. Patient/Family are encouraged to report perceived risks to care and to ask questions if they do not understand what they are told or what they should do.
[2025-01-28 21:20] LABS: Alanine Aminotransferase 18 U/L (6-50); Albumin Level 3.9 g/dL (3.5-5.1); Alkaline Phosphatase 75 U/L (38-126); Anion Gap 8 mmol/L (4-12); Aspartate Amino Transferase 32 U/L (17-59); Bilirubin,Total 1.7 mg/dL (0.2-1.3); Blood Urea Nitrogen 21 mg/dL (9-20); Calcium 9.7 mg/dL (8.4-10.2); Carbon Dioxide 26 mmol/L (22-30); Chloride 104 mmol/L (98-107); Estimated CRCL calculation 39 ml/min; Estimated Glomerular Filt Rate > 60; Glucose 92 mg/dL (65-110); Potassium 3.9 mmol/L (3.4-5.0); Sodium 138 mmol/L (137-145); Total Protein 6.6 g/dL (6.3-8.2)
[2025-01-28] MEDS: OLANZapine 10 MG INJ VIAL 5 MG IM (22:24)
[2025-01-28] MEDS: WATER, STERILE FOR INJECTION 10 ML VIAL XX (22:24)
--- NOTE | 2025-01-28 22:59 | ADMGEN ---
This patient, Marcel Awad, was admitted to 3 [facility] Surg Room 333-01. Patient/family oriented to hospital policies and general routines including ID bracelet, bed and alarms, visiting hours, pain management, procedures, bathroom and other care routines, personal items, smoking policy, room service/diet, and visiting hours. Information on how to activate the Rapid Response Team has been discussed. Patient/Family are encouraged to report perceived risks to care and to ask questions if they do not understand what they are told or what they should do.
--- NOTE | 2025-01-28 23:45 | PC.NURSE ---
Pt removed IV. OK to leave out at this time. Hospitalist Mamta Mccain aware.
[2025-01-29 06:09] LABS: Hematocrit 44.8 % (42.0-52.0); Hemoglobin 14.5 g/dL (14.0-18.0); Immature Granulocyte Percent A 0.3 % (0-0.5); Immature Platelet Fraction Pct 7.7 % (0.9-11.2); Lymphocytes Absolute Auto 1.23 K/mm3 (0.9-3.2); Mean Corpuscular HGB Conc 32.4 g/dl (32-36); Mean Corpuscular Hemoglobin 32.8 pg (26-34); Mean Corpuscular Volume 101.4 fl (80-100); Nucleated Red Blood Cells Absolute Auto 0.000 K/mm3 (0.0-0.012); Nucleated Red Blood Cells Perc 0.0 % (0.0-0.2); Platelet Count Result 132 k/mm3 (150-375); Red Blood Count 4.42 M/mm3 (4.6-6.20); White Blood Count 6.5 K/mm3 (4.5-10.0)
[2025-01-29 06:25] LABS: Anion Gap 5 mmol/L (4-12); Blood Urea Nitrogen 20 mg/dL (9-20); Calcium 9.8 mg/dL (8.4-10.2); Carbon Dioxide 30 mmol/L (22-30); Chloride 104 mmol/L (98-107); Estimated CRCL calculation 37 ml/min; Estimated Glomerular Filt Rate 60; Glucose 91 mg/dL (65-110); Potassium 4.2 mmol/L (3.4-5.0); Sodium 139 mmol/L (137-145)
--- NOTE | 2025-01-29 06:41 | PHAR ---
HOME MEDICATION: REXULTI (BREXPIPRAZOLE) 0.25 MG TABLETS, 1 TABLET BY MOUTH DAILY, VERIFIED IN PHARMACY 01/29/25 @ 0664 [place]
[2025-01-29] MEDS: ATORVASTATIN 40 MG TABLET BY MOUTH (10:03)
[2025-01-29] MEDS: DULoxetine HCL 60 MG CAPSULE.DR BY MOUTH (10:03)
[2025-01-29] MEDS: DOCUSATE SODIUM 100 MG CAPSULE PO ×2 (10:03→17:21)
[2025-01-29] MEDS: DONEPEZIL HCL 10 MG TABLET BY MOUTH (10:03)
[2025-01-29] MEDS: ASPIRIN 81 MG ENTERIC TABLET PO (10:03)
[2025-01-29] MEDS: GABAPENTIN 100 MG CAPSULE BY MOUTH ×3 (10:03→17:21)
[2025-01-29] MEDS: BREXPIPRAZOLE 0.25 MG 0.25 EACH PO (10:05)
[2025-01-29] MEDS: CEPHALEXIN 250 MG CAPSULE PO ×2 (11:47→17:21)
--- NOTE | 2025-01-29 12:08 | P.PNIM_ITS ---
Progress Note: A&P Assessment and Plan (1) Fall: Qualifiers: Encounter type: subsequent encounter Qualified Code(s): W19.XXXD - Unspecified fall, subsequent encounter Code(s): W19.XXXA - Unspecified fall, initial encounter Status: Resolved Assessment and Plan: Patient is frequently falling at home the girlfriend states about 10 falls a month. She states that due to his progressive dementia she is unable to care for him. PT OT eval for placement Fall precaution (2) UTI (urinary tract infection): Code(s): N39.0 - Urinary tract infection, site not specified Status: Acute Assessment and Plan: IV Rocephin Culture and sensitivity pending (3) Failure to thrive: Status: Acute Assessment and Plan: Nutrition consulted PT OT consulted Will likely need placement (4) Dementia: Code(s): F03.90 - Unspecified dementia, unspecified severity, without behavioral disturbance, psychotic disturbance, mood disturbance, and anxiety Status: Acute Assessment and Plan: Continues Alzheimer's medications Zyprexa and trazodone for sleep hygiene (5) Depressed mood: Code(s): R45.89 - Other symptoms and signs involving emotional state Status: Acute Assessment and Plan: Continue Cymbalta (6) CAD (coronary artery disease): Qualifiers: Coronary Disease-Associated Artery/Lesion type: unspecified vessel or lesion type [place] vs. transplanted heart: [place] heart Associated angina: with unspecified angina Qualified Code(s): I25.119 - Atherosclerotic heart disease of [place] coronary artery with unspecified angina pectoris Code(s): I25.10 - Atherosclerotic heart disease of [place] coronary artery without angina pectoris Status: Acute Assessment and Plan: Continue Lipitor in aspirin Does not appear to be on anticoagulant, as he is not safe to be on 1 from frequent falls (7) Hyperlipidemia: Qualifiers: Hyperlipidemia type: mixed hyperlipidemia Qualified Code(s): E78.2 - Mixed hyperlipidemia Code(s): E78.5 - Hyperlipidemia, unspecified Status: Acute Assessment and Plan: Continue statin (8) Urine frequency: Code(s): R35.0 - Frequency of micturition Status: Acute Assessment and Plan: will check PSa. will get US Subjective Date/time seen: 01/29/25 12:08 Interval history: per [facility]Pi 84-year-old male with past medical history of CAD, frequent falls, dementia, tardive dyskinesia, malnutrition and skin cancer brought into the hospital because family increased urination and no longer care for him at home. Family is lines look into placement options. Patient constantly feels like he has to urinate. Patient is very restless because of this. Patient has no complaints. Patient's UA has trace leukocyte esterase. CMP within normal limits. Patient being admitted for evaluation for placement and failure to thrive. 01/29/25 Patient was seen and examined at bedside. he is oriented to his name. denies any chest pain, SOb,abd pain, N/V. Review of Systems Review of Systems: ROS unobtainable: Yes unobtainable due to mental status Exam Narrative: General: well appearing, appears stated age. HEENT: normocephalic, atraumatic. Mucous membranes moist. EOMI, PERRLA, bilateral sclera anicteric, no conjunctival injection. Neck supple without JVD, lymphadenopathy, or bruit. Respiratory: clear to ascultation bilaterally. No rales/rhonic/wheezes. Cardiovascular: Regular rate and rhythm, normal S1-S2 upon ascultation. No murmurs, rubs, or clicks. PMI is nondisplaced, capillary refill less than 3 second. Abdomen: Soft, round, no pulsatile masses, nondistended and nontender. No rebound, no guarding. No CVA tenderness, no hepatosplenomegaly. Bowel sounds present to all four quadrants. No high pitch or tinkling sounds, resonant to percussion. Extremities: No cyanosis, clubbing, or edema present. Pulses are palpable 2/2. Active ROM to all four extremities. Neuro: Alert and orientated x 1-2. PERRLA. Cranial nerves 2-12 intact without focal deficit. Skin: Warm, dry, and intact, without rash, erythema, or lesion. Psych: pleasant, cooperative, normal speech, normal affect, no hallucinations, no dysarthia Objective Data Vital Signs Vital Signs: Vital Signs - 24 hr 01/28/25 15:42 01/28/25 15:43 01/28/25 15:43 Temperature 97.6 F Pulse Rate 95 89 84 Respiratory Rate 26 H 16 19 Blood Pressure 143/87 H 143/87 H Pulse Oximetry 100 98 99 Oxygen Delivery 01/28/25 15:45 01/28/25 15:47 01/28/25 16:04 Temperature Pulse Rate 88 96 Respiratory Rate 24 H 18 Blood Pressure 137/86 Pulse Oximetry 91 99 100 Oxygen Delivery 01/28/25 16:15 01/28/25 16:30 01/28/25 16:45 Temperature Pulse Rate 81 91 82 Respiratory Rate 20 17 23 H Blood Pressure Pulse Oximetry 98 99 99 Oxygen Delivery 01/28/25 17:00 01/28/25 17:15 01/28/25 17:30 Temperature Pulse Rate 89 80 86 Respiratory Rate 29 H 20 18 Blood Pressure Pulse Oximetry 97 100 100 Oxygen Delivery 01/28/25 17:45 01/28/25 18:00 01/28/25 18:15 Temperature Pulse Rate 92 90 89 Respiratory Rate 20 19 19 Blood Pressure Pulse Oximetry 95 100 Oxygen Delivery 01/28/25 18:30 01/28/25 18:45 01/28/25 19:00 Temperature Pulse Rate 93 80 81 Respiratory Rate 27 H 18 17 Blood Pressure Pulse Oximetry 100 99 98 Oxygen Delivery 01/28/25 19:02 01/28/25 19:15 01/28/25 19:15 Temperature Pulse Rate 84 90 94 Respiratory Rate 17 18 18 Blood Pressure 125/80 125/90 Pulse Oximetry 98 98 95 Oxygen Delivery 01/28/25 19:16 01/28/25 19:32 01/28/25 19:46 Temperature 97.9 F Pulse Rate 93 81 86 Respiratory Rate 17 17 20 Blood Pressure 134/79 142/97 H 132/74 Pulse Oximetry 98 98 98 Oxygen Delivery 01/28/25 22:00 01/29/25 09:54 Temperature 96.7 F L Pulse Rate 88 Respiratory Rate 18 Blood Pressure 137/94 H Pulse Oximetry 93 Oxygen Delivery Room Air Intake/Output Intake/Output: Intake & Output 01/26/25 01/27/25 01/28/25 01/29/25 23:59 23:59 23:59 23:59 Intake Total 240 Balance 240 Meds/Results Medications: Active Medications Generic Name Dose Route Start Last Admin Trade Name Freq PRN Reason Stop Dose Admin Acetaminophen 650 mg 07/18/25 20:15 Acetaminophen 325 Mg Tablet PO Q4H PRN Mild Pain (1-3) or Fever Hydrocodone Bitart/Acetaminophen 1 tab 01/28/25 20:15 Hydrocodone/Acetaminophen (*Crx) 5-325 Mg Tablet PO Q4H PRN Moderate Pain (4-6) Aspirin 81 mg 01/29/25 09:00 01/29/25 10:03 Aspirin 81 Mg Enteric Tablet PO 81 mg QAM RENÉE Administration Atorvastatin Calcium 40 mg 01/29/25 09:00 01/29/25 10:03 Atorvastatin 40 Mg Tablet BY MOUTH 40 mg DAILY RENÉE Administration Cephalexin HCl 250 mg 01/29/25 00:00 01/29/25 11:47 Cephalexin 250 Mg Capsule PO 250 mg Q6HR RENÉE Administration Docusate Sodium 100 mg 01/29/25 09:00 01/29/25 10:03 Docusate Sodium 100 Mg Capsule PO 100 mg BID RENÉE Administration Donepezil HCl 10 mg 01/29/25 09:00 01/29/25 10:03 Donepezil Hcl 10 Mg Tablet BY MOUTH 10 mg DAILY RENÉE Administration Duloxetine HCl 60 mg 01/29/25 09:00 01/29/25 10:03 Duloxetine Hcl 60 Mg Capsule.Dr BY MOUTH 60 mg DAILY RENÉE Administration Gabapentin 100 mg 01/29/25 09:00 01/29/25 10:03 Gabapentin 100 Mg Capsule BY MOUTH 100 mg TID RENÉE Administration Mirtazapine 30 mg 01/28/25 23:35 01/29/25 00:50 Mirtazapine 30 Mg Tablet PO Not Given QHS [facility] Miscellaneous Information 1 each 01/28/25 00:01 Brexpiprazole [Rexulti] 0.25 Mg Tablet Is Nonformulary, If Patient Brings From Home, Pleas XX 02/27/25 00:00 CLARIFY [facility] Home Med ( 0.25 mg 01/29/25 09:00 01/29/25 10:05 Brexpiprazole [ PO 02/28/25 08:59 0.25 mg Rexulti] 0.25 Mg DAILY RENÉE Administration Tablet) Olanzapine 5 mg 01/29/25 21:00 Olanzapine Dispertab 5 Mg PO HS RENÉE Trazodone HCl 50 mg 01/28/25 23:21 Trazodone Hcl 50 Mg Tablet PO QHS PRN insomnia Radiology Results: ITS Impressions Chest X-Ray 01/28/25 16:08 IMPRESSION: No acute cardiopulmonary pathology. Labs Labs: Laboratory Results - last 24 hr 01/28/25 01/28/25 01/28/25 16:29 17:55 20:58 WBC 7.9 RBC 4.34 L Hgb 14.2 Hct 42.8 MCV 98.6 MCH 32.7 MCHC 33.2 RDW 13.5 Plt Count 138 L MPV 11.6 H Immature Gran % (Auto) 0.3 Neut % (Auto) 77.2 H Lymph % (Auto) 9.1 L [place] % (Auto) 12.4 H Eos % (Auto) 0.4 Baso % (Auto) 0.6 Lymph # (Auto) 0.72 L [place] # (Auto) 1.0 H Eos # (Auto) 0.0 Baso # (Auto) 0.1 Abs Immat Gran (auto) 0.02 Absolute Neuts (auto) 6.1 Absolute Nucleated RBC 0.000 Nucleated RBC % 0.0 % Immature Plt Fraction 7.6 PT 13.9 INR 1.1 APTT 43.2 H Sodium 138 Potassium 3.9 Chloride 104 Carbon Dioxide 26 Anion Gap 8 BUN 21 H Creatinine 1.10 Estim Creat Clear Calc 39 Estimated GFR > 60 Glucose 92 Calcium 9.7 Total Bilirubin 1.7 H AST 32 ALT 18 Alkaline Phosphatase 75 Total Protein 6.6 Albumin 3.9 Urine Color Dark yellow Urine Appearance Clear Urine pH 6.5 Ur Specific [place] 1.030 Urine Protein 1+ H Urine Glucose (UA) Negative Urine Ketones 1+ H Ur Blood (Man) Negative Urine Nitrate Negative Urine Bilirubin Negative Urine Urobilinogen 1.0 Leukocyte Esterase Rfl Trace H Urine RBC 0-2 Urine WBC 0-5 Ur Squamous Epith Cells None seen Urine Bacteria None seen Urine Casts 0-2 Influenza A (RT-PCR) Negative Influenza B (RT-PCR) Negative RSV (RT-PCR) Negative SARS-CoV-2 RNA (RT-PCR) Negative 01/29/25 05:55 WBC 6.5 RBC 4.42 L Hgb 14.5 Hct 44.8 MCV 101.4 H MCH 32.8 MCHC 32.4 RDW 13.6 Plt Count 132 L MPV 11.7 H Immature Gran % (Auto) 0.3 Neut % (Auto) 65.9 Lymph % (Auto) 19.0 [place] % (Auto) 11.3 H Eos % (Auto) 2.3 Baso % (Auto) 1.2 Lymph # (Auto) 1.23 [place] # (Auto) 0.7 H Eos # (Auto) 0.2 Baso # (Auto) 0.1 Abs Immat Gran (auto) 0.02 Absolute Neuts (auto) 4.3 Absolute Nucleated RBC 0.000 Nucleated RBC % 0.0 % Immature Plt Fraction 7.7 PT INR APTT Sodium 139 Potassium 4.2 Chloride 104 Carbon Dioxide 30 Anion Gap 5 BUN 20 Creatinine 1.17 Estim Creat Clear Calc 37 Estimated GFR 60 Glucose 91 Calcium 9.8 Total Bilirubin AST ALT Alkaline Phosphatase Total Protein Albumin Urine Color Urine Appearance Urine pH Ur Specific [place] Urine Protein Urine Glucose (UA) Urine Ketones Ur Blood (Man) Urine Nitrate Urine Bilirubin Urine Urobilinogen Leukocyte Esterase Rfl Urine RBC Urine WBC Ur Squamous Epith Cells Urine Bacteria Urine Casts Influenza A (RT-PCR) Influenza B (RT-PCR) RSV (RT-PCR) SARS-CoV-2 RNA (RT-PCR) Quality VTE Prophylaxis VTE prophylaxis: mechanical ordered
[2025-01-29 14:00] VITALS: BP 150/90; PULSE 48; RESP 20; TEMP 36.5; O2SAT 99
[2025-01-29] MEDS: DOCUSATE SODIUM 400 MG/400 ML ENEMA RECTAL (17:28)
[2025-01-29 20:05] VITALS: BP 125/79; PULSE 109; RESP 16; TEMP 36.1; O2SAT 97
[2025-01-29] MEDS: MIRTAZAPINE 30 MG TABLET PO (20:36)
[2025-01-29] MEDS: OLANZapine DISPERTAB 5 MG PO (20:36)
[2025-01-29 21:26] VITALS: O2SAT 96
[2025-01-30] MEDS: CEPHALEXIN 250 MG CAPSULE PO ×2 (00:49→06:12)
[2025-01-30 06:00] VITALS: PULSE 74; RESP 18; TEMP 35.8; O2SAT 97
[2025-01-30 06:17] LABS: Hematocrit 49.6 % (42.0-52.0); Hemoglobin 16.8 g/dL (14.0-18.0); Mean Corpuscular HGB Conc 33.9 g/dl (32-36); Mean Corpuscular Hemoglobin 33.2 pg (26-34); Mean Corpuscular Volume 98.0 fl (80-100); Platelet Count Result 202 k/mm3 (150-375); Red Blood Count 5.06 M/mm3 (4.6-6.20); White Blood Count 11.2 K/mm3 (4.5-10.0)
[2025-01-30 06:42] LABS: Anion Gap 13 mmol/L (4-12); Blood Urea Nitrogen 23 mg/dL (9-20); Calcium 10.5 mg/dL (8.4-10.2); Carbon Dioxide 25 mmol/L (22-30); Chloride 98 mmol/L (98-107); Estimated CRCL calculation 31 ml/min; Estimated Glomerular Filt Rate 48; Glucose 130 mg/dL (65-110); Potassium 4.4 mmol/L (3.4-5.0); Sodium 136 mmol/L (137-145)
[2025-01-30] MEDS: ATORVASTATIN 40 MG TABLET BY MOUTH (08:58)
[2025-01-30] MEDS: ASPIRIN 81 MG ENTERIC TABLET PO (08:58)
[2025-01-30] MEDS: GABAPENTIN 100 MG CAPSULE BY MOUTH ×3 (08:58→16:49)
[2025-01-30] MEDS: DONEPEZIL HCL 10 MG TABLET BY MOUTH (08:59)
[2025-01-30] MEDS: DULoxetine HCL 60 MG CAPSULE.DR BY MOUTH (08:59)
[2025-01-30] MEDS: DOCUSATE SODIUM 100 MG CAPSULE PO (08:59)
[2025-01-30] MEDS: BREXPIPRAZOLE 0.25 MG 0.25 EACH PO (09:01)
[2025-01-30] MEDS: SODIUM CHLORIDE 0.9% IV 1,000 ML 75 ML IV CONT ×2 (09:24→23:24)
[2025-01-30] MEDS: cefTRIAXone 2 GM in SODIUM CHLORIDE 0.9% IV 100 ML 200 ML IVPB (09:31)
--- NOTE | 2025-01-30 10:11 | P.PNIM_ITS ---
Progress Note: A&P Assessment and Plan (1) Fall: Qualifiers: Encounter type: subsequent encounter Qualified Code(s): W19.XXXD - Unspecified fall, subsequent encounter Code(s): W19.XXXA - Unspecified fall, initial encounter Status: Resolved Assessment and Plan: Patient is frequently falling at home the girlfriend states about 10 falls a month. She states that due to his progressive dementia she is unable to care for him. PT OT eval for placement Fall precaution (2) UTI (urinary tract infection): Code(s): N39.0 - Urinary tract infection, site not specified Status: Acute Assessment and Plan: IV Rocephin Culture and sensitivity pending (3) Failure to thrive: Status: Acute Assessment and Plan: Nutrition consulted PT OT consulted Will likely need placement (4) Dementia: Code(s): F03.90 - Unspecified dementia, unspecified severity, without behavioral disturbance, psychotic disturbance, mood disturbance, and anxiety Status: Acute Assessment and Plan: Continues Alzheimer's medications Zyprexa and trazodone for sleep hygiene (5) Depressed mood: Code(s): R45.89 - Other symptoms and signs involving emotional state Status: Acute Assessment and Plan: Continue Cymbalta (6) CAD (coronary artery disease): Qualifiers: Coronary Disease-Associated Artery/Lesion type: unspecified vessel or lesion type [place] vs. transplanted heart: [place] heart Associated angina: with unspecified angina Qualified Code(s): I25.119 - Atherosclerotic heart disease of [place] coronary artery with unspecified angina pectoris Code(s): I25.10 - Atherosclerotic heart disease of [place] coronary artery without angina pectoris Status: Acute Assessment and Plan: Continue Lipitor in aspirin Does not appear to be on anticoagulant, as he is not safe to be on 1 from frequent falls (7) Hyperlipidemia: Qualifiers: Hyperlipidemia type: mixed hyperlipidemia Qualified Code(s): E78.2 - Mixed hyperlipidemia Code(s): E78.5 - Hyperlipidemia, unspecified Status: Acute Assessment and Plan: Continue statin (8) Urine frequency: Code(s): R35.0 - Frequency of micturition Status: Acute Assessment and Plan: PSa pending. US unremarkable (9) Pneumonia: Code(s): J18.9 - Pneumonia, unspecified organism Status: Acute Assessment and Plan: has Cough and rhinorrhea. will get pneumonia PCR CXR continue Rocephin (10) Leucocytosis: Code(s): D72.829 - Elevated white blood cell count, unspecified Status: Acute Assessment and Plan: UTI vs pneumonia C/W Abx (11) ANTONIO (acute kidney injury): Code(s): N17.9 - Acute kidney failure, unspecified Status: Acute Assessment and Plan: IVF continue to monitor Subjective Date/time seen: 01/30/25 10:11 Interval history: per HPi 84-year-old male with past medical history of CAD, frequent falls, dementia, tardive dyskinesia, malnutrition and skin cancer brought into the hospital because family increased urination and no longer care for him at home. Family is lines look into placement options. Patient constantly feels like he has to urinate. Patient is very restless because of this. Patient has no complaints. Patient's UA has trace leukocyte esterase. CMP within normal limits. Patient being admitted for evaluation for placement and failure to thrive. 01/29/25 Patient was seen and examined at bedside. he is oriented to his name. denies any chest pain, SOb,abd pain, N/V. 01/30/25 Patient was seen and examined at bedside. he is feeling better except coughing and rhinorrhea. Denies chest pain , abd pain, N/V. has worsening WBC and PREET, will add Rocephin IV and IVF. will get resp pCR Review of Systems Review of Systems: ROS unobtainable: Yes unobtainable due to mental status Exam Narrative: General: well appearing, appears stated age. HEENT: normocephalic, atraumatic. Mucous membranes moist. EOMI, PERRLA, bilateral sclera anicteric, no conjunctival injection. Neck supple without JVD, lymphadenopathy, or bruit. Respiratory: clear to ascultation bilaterally. No rales/rhonic/wheezes. Cardiovascular: Regular rate and rhythm, normal S1-S2 upon ascultation. No murmurs, rubs, or clicks. PMI is nondisplaced, capillary refill less than 3 second. Abdomen: Soft, round, no pulsatile masses, nondistended and nontender. No rebound, no guarding. No CVA tenderness, no hepatosplenomegaly. Bowel sounds present to all four quadrants. No high pitch or tinkling sounds, resonant to percussion. Extremities: No cyanosis, clubbing, or edema present. Pulses are palpable 2/2. Active ROM to all four extremities. Neuro: Alert and orientated x 1-2. PERRLA. Cranial nerves 2-12 intact without focal deficit. Skin: Warm, dry, and intact, without rash, erythema, or lesion. Psych: pleasant, cooperative, normal speech, normal affect, no hallucinations, no dysarthia Objective Data Vital Signs Vital Signs: Vital Signs - 24 hr 01/29/25 14:00 01/29/25 20:05 01/29/25 21:26 Temperature 97.7 F 96.9 F L Pulse Rate 48 L 109 H Respiratory Rate 20 16 Blood Pressure 150/90 H 125/79 Pulse Oximetry 99 97 96 Oxygen Delivery Room Air 01/30/25 06:00 Temperature 96.4 F L Pulse Rate 74 Respiratory Rate 18 Blood Pressure Pulse Oximetry 97 Oxygen Delivery Intake/Output Intake/Output: Intake & Output 01/27/25 01/28/25 01/29/25 01/30/25 23:59 23:59 23:59 23:59 Intake Total 920 100 Output Total 750 Balance 170 100 Meds/Results Medications: Active Medications Generic Name Dose Route Start Last Admin Trade Name Freq PRN Reason Stop Dose Admin Acetaminophen 650 mg 01/28/25 20:15 Acetaminophen 325 Mg Tablet PO Q4H PRN Mild Pain (1-3) or Fever Hydrocodone Bitart/Acetaminophen 1 tab 01/28/25 20:15 Hydrocodone/Acetaminophen (*Crx) 5-325 Mg Tablet PO Q4H PRN Moderate Pain (4-6) Aspirin 81 mg 01/29/25 09:00 01/30/25 08:58 Aspirin 81 Mg Enteric Tablet PO 81 mg QAM RENÉE Administration Atorvastatin Calcium 40 mg 01/29/25 09:00 01/30/25 08:58 Atorvastatin 40 Mg Tablet BY MOUTH 40 mg DAILY RENÉE Administration Docusate Sodium 100 mg 01/29/25 09:00 01/30/25 08:59 Docusate Sodium 100 Mg Capsule PO 100 mg BID RENÉE Administration Donepezil HCl 10 mg 01/29/25 09:00 01/30/25 08:59 Donepezil Hcl 10 Mg Tablet BY MOUTH 10 mg DAILY RENÉE Administration Duloxetine HCl 60 mg 01/29/25 09:00 01/30/25 08:59 Duloxetine Hcl 60 Mg Capsule.Dr BY MOUTH 60 mg DAILY RENÉE Administration Gabapentin 100 mg 01/29/25 09:00 01/30/25 08:58 Gabapentin 100 Mg Capsule BY MOUTH 100 mg TID RENÉE Administration Ceftriaxone Sodium 2 gm/ 100 mls @ 200 mls/hr 01/30/25 09:00 01/30/25 09:31 Sodium Chloride IVPB 200 mls/hr QAM RENÉE Administration Sodium Chloride 1,000 mls @ 75 mls/hr 01/30/25 07:20 01/30/25 09:24 Normal Saline Iv IV CONT 75 mls/hr .[id number] RENÉE Administration Mirtazapine 30 mg 01/28/25 23:35 01/29/25 20:36 Mirtazapine 30 Mg Tablet PO 30 mg QHS RENÉE Administration Miscellaneous Information 1 each 01/28/25 00:01 Brexpiprazole [Rexulti] 0.25 Mg Tablet Is Nonformulary, If Patient Brings From Home, Pleas XX 02/27/25 00:00 CLARIFY RENÉE Home Med ( 0.25 mg 01/29/25 09:00 01/30/25 09:01 Brexpiprazole [ PO 02/28/25 08:59 0.25 mg Rexulti] 0.25 Mg DAILY RENÉE Administration Tablet) Olanzapine 5 mg 01/29/25 21:00 01/29/25 20:36 Olanzapine Dispertab 5 Mg PO 5 mg HS RENÉE Administration Trazodone HCl 50 mg 01/28/25 23:21 Trazodone Hcl 50 Mg Tablet PO QHS PRN insomnia Radiology Results: ITS Impressions Chest X-Ray 01/28/25 16:08 IMPRESSION: No acute cardiopulmonary pathology. Renal Ultrasound 01/29/25 18:48 Impression: No significant abnormality. Labs Labs: Laboratory Results - last 24 hr 01/30/25 06:04 WBC 11.2 H RBC 5.06 Hgb 16.8 Hct 49.6 MCV 98.0 MCH 33.2 MCHC 33.9 RDW 13.5 Plt Count 202 D MPV 11.8 H Sodium 136 L Potassium 4.4 Chloride 98 Carbon Dioxide 25 Anion Gap 13 H BUN 23 H Creatinine 1.42 H Estim Creat Clear Calc 31 Estimated GFR 48 L Glucose 130 H Calcium 10.5 H Quality VTE Prophylaxis VTE prophylaxis: mechanical ordered
[2025-01-30 14:00] VITALS: BP 148/60; PULSE 80; RESP 19; TEMP 36.4; O2SAT 96
[2025-01-30] MEDS: ACETAMINOPHEN 325 MG TABLET 650 MG PO ×2 (19:18→23:26)
[2025-01-30] MEDS: MIRTAZAPINE 30 MG TABLET PO (19:19)
[2025-01-30] MEDS: OLANZapine DISPERTAB 5 MG PO (19:19)
[2025-01-30 22:00] VITALS: BP 140/64; PULSE 63; RESP 20; TEMP 36.6; O2SAT 100
[2025-01-31 06:00] VITALS: PULSE 58; RESP 20; TEMP 36.3; O2SAT 100
[2025-01-31 06:34] LABS: Hematocrit 39.5 % (42.0-52.0); Hemoglobin 12.9 g/dL (14.0-18.0); Mean Corpuscular HGB Conc 32.7 g/dl (32-36); Mean Corpuscular Hemoglobin 32.8 pg (26-34); Mean Corpuscular Volume 100.5 fl (80-100); Platelet Count Result 127 k/mm3 (150-375); Red Blood Count 3.93 M/mm3 (4.6-6.20); White Blood Count 8.2 K/mm3 (4.5-10.0)
[2025-01-31 06:59] LABS: Anion Gap 6 mmol/L (4-12); Blood Urea Nitrogen 23 mg/dL (9-20); Calcium 8.6 mg/dL (8.4-10.2); Carbon Dioxide 24 mmol/L (22-30); Chloride 107 mmol/L (98-107); Estimated CRCL calculation 35 ml/min; Estimated Glomerular Filt Rate 57; Glucose 90 mg/dL (65-110); Potassium 3.4 mmol/L (3.4-5.0); Sodium 137 mmol/L (137-145)
[2025-01-31] MEDS: cefTRIAXone 2 GM in SODIUM CHLORIDE 0.9% IV 100 ML 200 ML IVPB (09:56)
[2025-01-31 11:08] LABS: PSA, Free 0.31 ng/mL
[2025-01-31] MEDS: DONEPEZIL HCL 10 MG TABLET BY MOUTH (11:35)
[2025-01-31] MEDS: ASPIRIN 81 MG ENTERIC TABLET PO (11:35)
[2025-01-31] MEDS: GABAPENTIN 100 MG CAPSULE BY MOUTH ×2 (11:35→16:13)
[2025-01-31] MEDS: ATORVASTATIN 40 MG TABLET BY MOUTH (11:35)
[2025-01-31] MEDS: DULoxetine HCL 60 MG CAPSULE.DR BY MOUTH (11:36)
[2025-01-31] MEDS: BREXPIPRAZOLE 0.25 MG 0.25 EACH PO (11:36)
[2025-01-31] MEDS: DOCUSATE SODIUM 100 MG CAPSULE PO ×2 (11:36→16:13)
[2025-01-31] MEDS: SODIUM CHLORIDE 0.9% IV 1,000 ML 75 ML IV CONT (12:25)
[2025-01-31 13:16] VITALS: BMI 18.9
--- NOTE | 2025-01-31 13:38 | P.CDI_ITS ---
CDI Query Clarification Request BMI: 19.0 Nutritional Diagnostic Statement: Please refer to the comprehensive nutrition assessment for further information. If you agree with diagnosis of Moderate protein calorie malnutrition related to inadequate energy intake as evidenced by a significant weight loss of -7.5% x 3 months, poor po intake for greater than 1 month, and NFPE findings for severe subcutaneous fat loss (cheeks) and severe muscle wasting (catholic, clavicle, shoulder). Please specify severity if known: * Mild * Moderate * Severe * Other/Unknown <Maude Walker RN - Last Filed: 01/31/25 13:39> Clarified Diagnosis Clarified Diagnosis: Moderate protein calorie malnutrition <Yaneli Stanley MD - Last Filed: 01/31/25 14:49>
[2025-01-31 13:52] VITALS: BP 123/74; PULSE 73; RESP 20; TEMP 36.4; O2SAT 100
--- NOTE | 2025-01-31 14:49 | P.PNIM_ITS ---
Progress Note: A&P Assessment and Plan (1) Fall: Qualifiers: Encounter type: subsequent encounter Qualified Code(s): W19.XXXD - Unspecified fall, subsequent encounter Code(s): W19.XXXA - Unspecified fall, initial encounter Status: Resolved Assessment and Plan: Patient is frequently falling at home the girlfriend states about 10 falls a month. She states that due to his progressive dementia she is unable to care for him. PT OT eval for placement Fall precaution (2) UTI (urinary tract infection): Code(s): N39.0 - Urinary tract infection, site not specified Status: Acute Assessment and Plan: IV Rocephin Culture and sensitivity pending (3) Failure to thrive: Status: Acute Assessment and Plan: Nutrition on board PT OT on board Will likely need placement (4) Dementia: Code(s): F03.90 - Unspecified dementia, unspecified severity, without behavioral disturbance, psychotic disturbance, mood disturbance, and anxiety Status: Acute Assessment and Plan: Continues Alzheimer's medications Zyprexa and trazodone for sleep hygiene (5) Depressed mood: Code(s): R45.89 - Other symptoms and signs involving emotional state Status: Acute Assessment and Plan: Continue Cymbalta (6) CAD (coronary artery disease): Qualifiers: Coronary Disease-Associated Artery/Lesion type: unspecified vessel or lesion type [place] vs. transplanted heart: [place] heart Associated angina: with unspecified angina Qualified Code(s): I25.119 - Atherosclerotic heart disease of [place] coronary artery with unspecified angina pectoris Code(s): I25.10 - Atherosclerotic heart disease of [place] coronary artery without angina pectoris Status: Acute Assessment and Plan: Continue Lipitor in aspirin Does not appear to be on anticoagulant, as he is not safe to be on 1 from frequent falls (7) Hyperlipidemia: Qualifiers: Hyperlipidemia type: mixed hyperlipidemia Qualified Code(s): E78.2 - Mixed hyperlipidemia Code(s): E78.5 - Hyperlipidemia, unspecified Status: Acute Assessment and Plan: Continue statin (8) Urine frequency: Code(s): R35.0 - Frequency of micturition Status: Acute Assessment and Plan: PSa pending. US unremarkable (9) Pneumonia: Code(s): J18.9 - Pneumonia, unspecified organism Status: Acute Assessment and Plan: has Cough and rhinorrhea. pneumonia PCR pending CXR continue Rocephin (10) Leucocytosis: Code(s): D72.829 - Elevated white blood cell count, unspecified Status: Acute Assessment and Plan: UTI vs pneumonia C/W Abx (11) ANTONIO (acute kidney injury): Code(s): N17.9 - Acute kidney failure, unspecified Status: Acute Assessment and Plan: improving received IVF continue to monitor (12) Protein-calorie malnutrition, moderate: Code(s): E44.0 - Moderate protein-calorie malnutrition Status: Acute Assessment and Plan: dietitian on board supplements Subjective Date/time seen: 01/31/25 14:49 Interval history: per [facility]Pi 84-year-old male with past medical history of CAD, frequent falls, dementia, tardive dyskinesia, malnutrition and skin cancer brought into the hospital because family increased urination and no longer care for him at home. Family is lines look into placement options. Patient constantly feels like he has to urinate. Patient is very restless because of this. Patient has no complaints. Patient's UA has trace leukocyte esterase. CMP within normal limits. Patient being admitted for evaluation for placement and failure to thrive. 01/29/25 Patient was seen and examined at bedside. he is oriented to his name. denies any chest pain, SOb,abd pain, N/V. 01/30/25 Patient was seen and examined at bedside. he is feeling better except coughing and rhinorrhea. Denies chest pain , abd pain, N/V. has worsening WBC and PREET, will add Rocephin IV and IVF. will get resp pCR 01/31/25 Patient was seen and examined at bedside. he is feeling better. Denies chest pain , abd pain, N/V. Continue Iv Abx. dc plan pending final culture results and placement likely in 1-2 days Review of Systems Review of Systems: ROS unobtainable: Yes unobtainable due to mental status Exam Narrative: General: well appearing, appears stated age. HEENT: normocephalic, atraumatic. Mucous membranes moist. EOMI, PERRLA, bilateral sclera anicteric, no conjunctival injection. Neck supple without JVD, lymphadenopathy, or bruit. Respiratory: clear to ascultation bilaterally. No rales/rhonic/wheezes. Cardiovascular: Regular rate and rhythm, normal S1-S2 upon ascultation. No murmurs, rubs, or clicks. PMI is nondisplaced, capillary refill less than 3 second. Abdomen: Soft, round, no pulsatile masses, nondistended and nontender. No rebound, no guarding. No CVA tenderness, no hepatosplenomegaly. Bowel sounds present to all four quadrants. No high pitch or tinkling sounds, resonant to percussion. Extremities: No cyanosis, clubbing, or edema present. Pulses are palpable 2/2. Active ROM to all four extremities. Neuro: Alert and orientated x 1-2. PERRLA. Cranial nerves 2-12 intact without focal deficit. Skin: Warm, dry, and intact, without rash, erythema, or lesion. Psych: pleasant, cooperative, normal speech, normal affect, no hallucinations, no dysarthia Objective Data Vital Signs Vital Signs: Vital Signs - 24 hr 01/30/25 22:00 01/31/25 06:00 01/31/25 08:00 Temperature 97.9 F 97.4 F L Pulse Rate 63 58 L Respiratory Rate 20 20 Blood Pressure 140/64 Pulse Oximetry 100 100 Oxygen Delivery Room Air 01/31/25 13:52 Temperature 97.5 F L Pulse Rate 73 Respiratory Rate 20 Blood Pressure 123/74 Pulse Oximetry 100 Oxygen Delivery Intake/Output Intake/Output: Intake & Output 01/28/25 01/29/25 01/30/25 01/31/25 23:59 23:59 23:59 23:59 Intake Total 920 1662 1778.3 Output Total 750 150 Balance 170 1512 1778.3 Meds/Results Medications: Active Medications Generic Name Dose Route Start Last Admin Trade Name Freq PRN Reason Stop Dose Admin Acetaminophen 650 mg 01/28/25 20:15 01/30/25 23:26 Acetaminophen 325 Mg Tablet PO 650 mg Q4H PRN Administration Mild Pain (1-3) or Fever Hydrocodone Bitart/Acetaminophen 1 tab 01/28/25 20:15 Hydrocodone/Acetaminophen (*Crx) 5-325 Mg Tablet PO Q4H PRN Moderate Pain (4-6) Aspirin 81 mg 01/29/25 09:00 01/31/25 11:35 Aspirin 81 Mg Enteric Tablet PO 81 mg QAM RENÉE Administration Atorvastatin Calcium 40 mg 01/29/25 09:00 01/31/25 11:35 Atorvastatin 40 Mg Tablet BY MOUTH 40 mg DAILY RENÉE Administration Docusate Sodium 100 mg 01/29/25 09:00 01/31/25 11:36 Docusate Sodium 100 Mg Capsule PO 100 mg BID RENÉE Administration Donepezil HCl 10 mg 01/29/25 09:00 01/31/25 11:35 Donepezil Hcl 10 Mg Tablet BY MOUTH 10 mg DAILY RENÉE Administration Duloxetine HCl 60 mg 01/29/25 09:00 01/31/25 11:36 Duloxetine Hcl 60 Mg Capsule.Dr BY MOUTH 60 mg DAILY RENÉE Administration Gabapentin 100 mg 01/29/25 09:00 01/31/25 11:35 Gabapentin 100 Mg Capsule BY MOUTH 100 mg TID RENÉE Administration Ceftriaxone Sodium 2 gm/ 100 mls @ 200 mls/hr 01/30/25 09:00 01/31/25 10:26 Sodium Chloride IVPB Infused QAM RENÉE Infusion Sodium Chloride 1,000 mls @ 75 mls/hr 01/30/25 07:20 01/31/25 12:25 Normal Saline Iv IV CONT 75 mls/hr .[id number] RENÉE Administration Mirtazapine 30 mg 01/28/25 23:35 01/30/25 19:19 Mirtazapine 30 Mg Tablet PO 30 mg QHS RENÉE Administration Miscellaneous Information 1 each 01/28/25 00:01 Brexpiprazole [Rexulti] 0.25 Mg Tablet Is Nonformulary, If Patient Brings From Home, Yaakovas XX 02/27/25 00:00 CLARIFY RENÉE Home Med ( 0.25 mg 01/29/25 09:00 01/31/25 11:36 Brexpiprazole [ PO 02/28/25 08:59 0.25 mg Rexulti] 0.25 Mg DAILY RENÉE Administration Tablet) Olanzapine 5 mg 01/29/25 21:00 01/30/25 19:19 Olanzapine Dispertab 5 Mg PO 5 mg HS RENÉE Administration Trazodone HCl 50 mg 01/28/25 23:01/30/25 19:19 Trazodone Hcl 50 Mg Tablet PO 50 mg QHS PRN Administration insomnia Radiology Results: ITS Impressions Renal Ultrasound 01/29/25 18:48 Impression: No significant abnormality. Chest X-Ray 01/30/25 10:34 Impression: No acute abnormality. 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 Labs Labs: Laboratory Results - last 24 hr 01/29/25 01/31/25 13:10 05:41 WBC 8.2 RBC 3.93 L Hgb 12.9 L D Hct 39.5 L MCV 100.5 H MCH 32.8 MCHC 32.7 RDW 13.6 Plt Count 127 L MPV 12.3 H Sodium 137 Potassium 3.4 Chloride 107 Carbon Dioxide 24 Anion Gap 6 BUN 23 H Creatinine 1.22 Estim Creat Clear Calc 35 Estimated GFR 57 L Glucose 90 Calcium 8.6 Prostate Specific Ag 1.4 Free PSA 0.31 % Free PSA 22.1 Quality VTE Prophylaxis VTE prophylaxis: mechanical ordered
[2025-01-31] MEDS: HYDROcodone/acetaminophen (*CRX) 5-325 MG TABLET 1 TAB PO (19:50)
[2025-01-31] MEDS: MIRTAZAPINE 30 MG TABLET PO (19:50)
[2025-01-31] MEDS: OLANZapine DISPERTAB 5 MG PO (19:50)
[2025-02-01] MEDS: SODIUM CHLORIDE 0.9% IV 1,000 ML 75 ML IV CONT (02:05)
[2025-02-01 05:42] LABS: Hematocrit 35.7 % (42.0-52.0); Hemoglobin 11.6 g/dL (14.0-18.0); Immature Platelet Fraction Pct 8.3 % (0.9-11.2); Mean Corpuscular HGB Conc 32.5 g/dl (32-36); Mean Corpuscular Hemoglobin 33.1 pg (26-34); Mean Corpuscular Volume 102.0 fl (80-100); Platelet Count Result 110 k/mm3 (150-375); Red Blood Count 3.50 M/mm3 (4.6-6.20); White Blood Count 6.2 K/mm3 (4.5-10.0)
[2025-02-01 05:57] LABS: Anion Gap 2 mmol/L (4-12); Blood Urea Nitrogen 15 mg/dL (9-20); Calcium 8.6 mg/dL (8.4-10.2); Carbon Dioxide 25 mmol/L (22-30); Chloride 108 mmol/L (98-107); Estimated CRCL calculation 42 ml/min; Estimated Glomerular Filt Rate > 60; Glucose 85 mg/dL (65-110); Potassium 3.7 mmol/L (3.4-5.0); Sodium 135 mmol/L (137-145)
[2025-02-01 06:00] VITALS: BP 140/84; PULSE 84; RESP 18; TEMP 36.1; O2SAT 100
[2025-02-01] MEDS: GABAPENTIN 100 MG CAPSULE BY MOUTH ×2 (10:11→13:26)
[2025-02-01] MEDS: ATORVASTATIN 40 MG TABLET BY MOUTH (10:11)
[2025-02-01] MEDS: DOCUSATE SODIUM 100 MG CAPSULE PO (10:11)
[2025-02-01] MEDS: DULoxetine HCL 60 MG CAPSULE.DR BY MOUTH (10:13)
[2025-02-01] MEDS: DONEPEZIL HCL 10 MG TABLET BY MOUTH (10:13)
[2025-02-01] MEDS: ASPIRIN 81 MG ENTERIC TABLET PO (10:13)
[2025-02-01] MEDS: BREXPIPRAZOLE 0.25 MG 0.25 EACH PO (10:14)
[2025-02-01 10:15] VITALS: O2SAT 100
--- NOTE | 2025-02-01 12:32 | P.PNIM_ITS ---
Progress Note: A&P Assessment and Plan (1) Fall: Qualifiers: Encounter type: subsequent encounter Qualified Code(s): W19.XXXD - Unspecified fall, subsequent encounter Code(s): W19.XXXA - Unspecified fall, initial encounter Status: Resolved Assessment and Plan: Patient is frequently falling at home the girlfriend states about 10 falls a month. She states that due to his progressive dementia she is unable to care for him. PT OT eval for placement Fall precaution (2) UTI (urinary tract infection): Code(s): N39.0 - Urinary tract infection, site not specified Status: Acute Assessment and Plan: IV Rocephin Culture and sensitivity pending (3) Failure to thrive: Status: Acute Assessment and Plan: Nutrition on board Still having poor oral intake declines PEG tube, discussed with girlfriend at bedside and she stated it is not in line with ihis wishes (4) Dementia: Code(s): F03.90 - Unspecified dementia, unspecified severity, without behavioral disturbance, psychotic disturbance, mood disturbance, and anxiety Status: Acute Assessment and Plan: Continues Alzheimer's medications Zyprexa and trazodone for sleep hygiene (5) Depressed mood: Code(s): R45.89 - Other symptoms and signs involving emotional state Status: Acute Assessment and Plan: Continue Cymbalta (6) CAD (coronary artery disease): Qualifiers: Coronary Disease-Associated Artery/Lesion type: unspecified vessel or lesion type [place] vs. transplanted heart: [place] heart Associated angina: with unspecified angina Qualified Code(s): I25.119 - Atherosclerotic heart disease of [place] coronary artery with unspecified angina pectoris Code(s): I25.10 - Atherosclerotic heart disease of [place] coronary artery without angina pectoris Status: Acute Assessment and Plan: Continue Lipitor in aspirin Does not appear to be on anticoagulant, as he is not safe to be on 1 from frequent falls (7) Hyperlipidemia: Qualifiers: Hyperlipidemia type: mixed hyperlipidemia Qualified Code(s): E78.2 - Mixed hyperlipidemia Code(s): E78.5 - Hyperlipidemia, unspecified Status: Acute Assessment and Plan: Continue statin (8) Urine frequency: Code(s): R35.0 - Frequency of micturition Status: Acute Assessment and Plan: PSa pending. US unremarkable (9) Pneumonia: Code(s): J18.9 - Pneumonia, unspecified organism Status: Acute Assessment and Plan: has Cough and rhinorrhea. pneumonia PCR pending CXR continue Rocephin (10) Leucocytosis: Code(s): D72.829 - Elevated white blood cell count, unspecified Status: Acute Assessment and Plan: UTI vs pneumonia C/W Abx (11) ANTONIO (acute kidney injury): Code(s): N17.9 - Acute kidney failure, unspecified Status: Acute Assessment and Plan: improving received IVF continue to monitor (12) Protein-calorie malnutrition, moderate: Code(s): E44.0 - Moderate protein-calorie malnutrition Status: Acute Assessment and Plan: dietitian on board supplements Plan DVT prophylaxis on Sq Lovenox Subjective Date/time seen: 02/01/25 12:32 Interval history: Comfortable at bedside still having poor oral intake Girlfriend noted patient will no do a PEG tube high school coordinator consulted for palliative/hospice care Review of Systems Review of Systems: ROS unobtainable: Yes unobtainable due to mental status Exam Narrative: General: well appearing, appears stated age. HEENT: normocephalic, atraumatic. Mucous membranes moist. EOMI, PERRLA, bilateral sclera anicteric, no conjunctival injection. Neck supple without JVD, lymphadenopathy, or bruit. Respiratory: clear to ascultation bilaterally. No rales/rhonic/wheezes. Cardiovascular: Regular rate and rhythm, normal S1-S2 upon ascultation. No murmurs, rubs, or clicks. PMI is nondisplaced, capillary refill less than 3 second. Abdomen: Soft, round, no pulsatile masses, nondistended and nontender. No rebound, no guarding. No CVA tenderness, no hepatosplenomegaly. Bowel sounds present to all four quadrants. No high pitch or tinkling sounds, resonant to percussion. Extremities: No cyanosis, clubbing, or edema present. Pulses are palpable 2/2. Active ROM to all four extremities. Neuro: Alert and orientated x 1-2. PERRLA. Cranial nerves 2-12 intact without focal deficit. Skin: Warm, dry, and intact, without rash, erythema, or lesion. Psych: pleasant, cooperative, normal speech, normal affect, no hallucinations, no dysarthia Objective Data Vital Signs Vital Signs: Vital Signs - 24 hr 01/31/25 13:52 02/01/25 06:00 Temperature 97.5 F L 96.9 F L Pulse Rate 73 84 Respiratory Rate 20 18 Blood Pressure 123/74 140/84 Pulse Oximetry 100 100 Intake/Output Intake/Output: Intake & Output 01/29/25 01/30/25 01/31/25 02/01/25 23:59 23:59 23:59 23:59 Intake Total 920 1662 2258.3 1270 Output Total 750 150 275 Balance 170 1512 1983.3 1270 Meds/Results Medications: Active Medications Generic Name Dose Route Start Last Admin Trade Name Freq PRN Reason Stop Dose Admin Acetaminophen 650 mg 01/28/25 20:15 01/30/25 23:26 Acetaminophen 325 Mg Tablet PO 650 mg Q4H PRN Administration Mild Pain (1-3) or Fever Hydrocodone Bitart/Acetaminophen 1 tab 01/28/25 20:15 01/31/25 19:50 Hydrocodone/Acetaminophen (*Crx) 5-325 Mg Tablet PO 1 tab Q4H PRN Administration Moderate Pain (4-6) Aspirin 81 mg 01/29/25 09:00 02/01/25 10:13 Aspirin 81 Mg Enteric Tablet PO 81 mg QAM RENÉE Administration Atorvastatin Calcium 40 mg 01/29/25 09:00 02/01/25 10:11 Atorvastatin 40 Mg Tablet BY MOUTH 40 mg DAILY RENÉE Administration Cephalexin HCl 500 mg 02/01/25 12:00 Cephalexin 500 Mg Capsule PO 02/04/25 21:01 Q12HR RENÉE Docusate Sodium 100 mg 01/29/25 09:00 02/01/25 10:11 Docusate Sodium 100 Mg Capsule PO 100 mg BID RENÉE Administration Donepezil HCl 10 mg 01/29/25 09:00 02/01/25 10:13 Donepezil Hcl 10 Mg Tablet BY MOUTH 10 mg DAILY RENÉE Administration Duloxetine HCl 60 mg 01/29/25 09:00 02/01/25 10:13 Duloxetine Hcl 60 Mg Capsule.Dr BY MOUTH 60 mg DAILY RENÉE Administration Gabapentin 100 mg 01/29/25 09:00 02/01/25 10:11 Gabapentin 100 Mg Capsule BY MOUTH 100 mg TID RENÉE Administration Sodium Chloride 1,000 mls @ 75 mls/hr 01/30/25 07:20 02/01/25 02:05 Normal Saline Iv IV CONT 75 mls/hr .[id number] RENÉE Administration Mirtazapine 30 mg 01/28/25 23:35 01/31/25 19:50 Mirtazapine 30 Mg Tablet PO 30 mg QHS RENÉE Administration Home Med ( 0.25 mg 01/29/25 09:00 02/01/25 10:14 Brexpiprazole [ PO 02/28/25 08:59 0.25 mg Rexulti] 0.25 Mg DAILY RENÉE Administration Tablet) Olanzapine 5 mg 01/29/25 21:00 01/31/25 19:50 Olanzapine Dispertab 5 Mg PO 5 mg HS RENÉE Administration Trazodone HCl 50 mg 01/28/25 23:21 01/31/25 19:51 Trazodone Hcl 50 Mg Tablet PO 50 mg QHS PRN Administration insomnia Radiology Results: ITS Impressions Renal Ultrasound 01/29/25 18:48 Impression: No significant abnormality. Chest X-Ray 01/30/25 10:34 Impression: No acute abnormality. 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 Labs Labs: Laboratory Results - last 24 hr 02/01/25 05:32 WBC 6.2 RBC 3.50 L Hgb 11.6 L Hct 35.7 L MCV 102.0 H MCH 33.1 MCHC 32.5 RDW 13.8 Plt Count 110 L MPV 11.9 H % Immature Plt Fraction 8.3 Sodium 135 L Potassium 3.7 Chloride 108 H Carbon Dioxide 25 Anion Gap 2 L BUN 15 D Creatinine 1.01 Estim Creat Clear Calc 42 Estimated GFR > 60 Glucose 85 Calcium 8.6 Quality VTE Prophylaxis VTE prophylaxis: mechanical ordered
[2025-02-01] MEDS: CEPHALEXIN 500 MG CAPSULE PO (13:26)
[2025-02-01 14:00] VITALS: BP 125/82; PULSE 65; RESP 20; TEMP 37; O2SAT 97
--- NOTE | 2025-02-01 15:05 | PM.DS ---
DS: Admitting Diagnosis Discharge Date 02/01/25 Admitting Diagnosis Progressing dementia DS: Discharge Diagnosis Discharge Diagnosis (1) Protein-calorie malnutrition, moderate: Code(s): E44.0 - Moderate protein-calorie malnutrition Status: Acute (2) Failure to thrive: Status: Acute (3) Adult failure to thrive: Code(s): R62.7 - Adult failure to thrive Status: Acute DS: Summary Hospital Course Hospital Course: 84-year-old male with past medical history of CAD, frequent falls, dementia, tardive dyskinesia, malnutrition and skin cancer brought into the hospital because family increased urination and no longer care for him at home. Family is lines look into placement options. Patient constantly feels like he has to urinate. Patient is very restless because of this. Patient has no complaints. Patient's UA has trace leukocyte esterase. CMP within normal limits. Patient being admitted for evaluation for placement and failure to thrive. Patient was placed on Remeron and association executive was consulted, spoke with girlfriend who noted patient has lost 30 lbs in 6 months. patient was managed for UTi, was on Rocephin and discharged on Kelfex for 4 more day. Patient's oral intake marginally improved and discussed with family for PEG tube placemetn which they declined. recommended palliative care/hospice which they also declined and preferred discharge home. Patient was discharged home with family per their request F/u with PCP in 3-5 days Time Spent with Patient Time attestation: Total time spent providing and/or coordinating discharge services: DS: Data Data Completed and Pending Labs on day of discharge: Labs from last 24 hours 02/01/25 05:32 WBC 6.2 RBC 3.50 L Hgb 11.6 L Hct 35.7 L MCV 102.0 H MCH 33.1 MCHC 32.5 RDW 13.8 Plt Count 110 L MPV 11.9 H % Immature Plt Fraction 8.3 Sodium 135 L Potassium 3.7 Chloride 108 H Carbon Dioxide 25 Anion Gap 2 L BUN 15 D Creatinine 1.01 Estim Creat Clear Calc 42 Estimated GFR > 60 Glucose 85 Calcium 8.6 Discharge Plan Discharge Attending physician on discharge: Heidi Domingo Consulting providers: Yaneli Stanley Discharging Clinician: Heidi Domingo Anticipated Discharge Date/Time: 02/01/25 15:02 Patient Disposition: Home Activity: as tolerated Diet: as tolerated and regular Patient Instructions: Antibiotic Form Patient Language: Swiss Stand Alone Forms: General Discharge Information Follow-up/Referrals: Marcus Childs MD [Primary Care Provider] - (F/u with PCP in 3-5 days ) Discharge Medications: New cephalexin 500 mg Capsule 500 mg PO Q12HR 4 Days Qty: 8 0RF Continued cyproheptadine 4 mg tablet See Rx Instructions .ROUTE .COMPLEX Qty: 60 5RF Dose Instruction: TAKE 1 TABLET BY MOUTH TWICE DAILY Rx Instructions: TAKE 1 TABLET BY MOUTH TWICE DAILY Rexulti 0.25 mg tablet 0.25 mg PO DAILY Qty: 90 1RF naltrexone 4.5 mg capsule 4.5 mg PO DAILY@0800 Slow-Mag 71.5 mg tablet,delayed release (DR/EC) 71.5 mg PO BID Qty: 60 5RF aspirin [Adult Aspirin Regimen] 81 mg tablet,delayed release (DR/EC) 81 mg PO QAM naltrexone 4.5 mg capsule 4.5 mg PO DAILY Protocol: Diet Supplements Protocol Text: Ensure Clear: clear liquid, fat-free oral supplement Ensure Compact: 4 oz. oral supplement Ensure Enlive: high calorie, high protein oral supplement Ensure Pre-Surgery: oral supplement for preoperative carbohydrate loading Ensure Surgery: oral supplement for patients undergoing elective surgery Glucerna Shake: carbohydrate controlled oral supplement for people with diabetes [place]: oral supplement designed to build lean body mass to support healing; contains arginine Nepro: high protein/calorie, low electrolyte oral supplement for people on dialysis Suplena: low protein, high calorie, low electrolyte formula for CKD patients not requiring dialysis donepezil 10 mg tablet See Rx Instructions .ROUTE .COMPLEX Qty: 90 1RF Dose Instruction: TAKE 1 TABLET BY MOUTH DAILY Rx Instructions: TAKE 1 TABLET BY MOUTH DAILY rabeprazole 20 mg tablet,delayed release (DR/EC) See Rx Instructions .ROUTE .COMPLEX Qty: 90 1RF Dose Instruction: TAKE 1 TABLET BY MOUTH DAILY Rx Instructions: TAKE 1 TABLET BY MOUTH DAILY folic acid 1 mg tablet See Rx Instructions .ROUTE .COMPLEX Qty: 90 1RF Dose Instruction: TAKE 1 TABLET BY MOUTH DAILY Rx Instructions: TAKE 1 TABLET BY MOUTH DAILY duloxetine 60 mg capsule,delayed release(DR/EC) See Rx Instructions .ROUTE .COMPLEX Qty: 90 1RF Dose Instruction: TAKE 1 CAPSULE BY MOUTH DAILY Rx Instructions: TAKE 1 CAPSULE BY MOUTH DAILY atorvastatin 40 mg tablet See Rx Instructions .ROUTE .COMPLEX Qty: 90 1RF Dose Instruction: TAKE 1 TABLET BY MOUTH DAILY Rx Instructions: TAKE 1 TABLET BY MOUTH DAILY trazodone 50 mg tablet 50 mg PO QHS PRN (Reason: insomnia) Qty: 90 1RF gabapentin 100 mg capsule See Rx Instructions .ROUTE .COMPLEX Qty: 90 0RF Dose Instruction: TAKE 1 CAPSULE BY MOUTH THREE TIMES DAILY Rx Instructions: TAKE 1 CAPSULE BY MOUTH THREE TIMES DAILY mirtazapine 30 mg tablet 30 mg PO QHS Qty: 90 1RF Rx Instructions: Please D/C the Mirtazapine 15mg. Thank you. Date of admission: 01/28/25 18:57 Primary Care Provider: Marcus Childs Admitting Provider: Woo Willis Attending physician on admission: Woo Willis Condition: Stable
== END 2025-02-01 16:20 | disposition home or self-care (01) ==
LOC: ANHED 17:52 → ANH3MEDSUR 22:13
PROVIDERS: Internal Medicine; Nurse Practitioner Gerontology; Admitting Provider Family Medicine; Emergency Provider Emergency Medicine; PCP Internal Medicine; Visit Provider Internal Medicine
DX: E44.0 Moderate protein-calorie malnutrition (principal); R62.7 Adult failure to thrive; Z68.1 Body mass index [BMI] 19.9 or less, adult; R35.0 Frequency of micturition; R29.6 Repeated falls; Z91.81 History of falling; N39.0 Urinary tract infection, site not specified; F03.90 Unspecified dementia, unspecified severity, without behavioral disturbance, psychotic disturbance, mood disturbance, and anxiety; D72.829 Elevated white blood cell count, unspecified; N17.9 Acute kidney failure, unspecified; R05.9 Cough, unspecified; R45.89 Other symptoms and signs involving emotional state; M81.0 Age-related osteoporosis without current pathological fracture; K21.9 Gastro-esophageal reflux disease without esophagitis; Z87.891 Personal history of nicotine dependence; Z85.828 Personal history of other malignant neoplasm of skin; I25.119 Atherosclerotic heart disease of native coronary artery with unspecified angina pectoris; E78.2 Mixed hyperlipidemia; Z20.822 Contact with and (suspected) exposure to COVID-19
CPT/HCPCS: 36415; 71045; 71046; 76775; 80048; 80053; 81001; 84153; 84154; 85025; 85027; 85055; 85610; 85730; 87086; 87637; 96361; 96365; 96372; 97110; 97161; 97165; 97530; 97535; 99285; A9270; G0103; G0378; J0696; J2359; J7030

== ENCOUNTER 2025-05-03 11:28 | Outpatient (CLI) | payer MEDICARE, SELFPAY ==
[2025-05-03 12:43] LABS: Alanine Aminotransferase 14 U/L (6-50); Albumin Level 3.8 g/dL (3.5-5.1); Alkaline Phosphatase 72 U/L (38-126); Anion Gap 4 mmol/L (4-12); Aspartate Amino Transferase 25 U/L (17-59); Bilirubin,Total 1.1 mg/dL (0.2-1.3); Blood Urea Nitrogen 24 mg/dL (9-20); Calcium 9.5 mg/dL (8.4-10.2); Carbon Dioxide 31 mmol/L (22-30); Chloride 103 mmol/L (98-107); Cholesterol 130 mg/dL (0-200); Estimated Glomerular Filt Rate 58; Glucose 86 mg/dL (65-110); HDL Direct 59 mg/dL; Potassium 4.4 mmol/L (3.4-5.0); Sodium 138 mmol/L (137-145); Total Protein 6.3 g/dL (6.3-8.2); Triglycerides 62 mg/dL (<150)
[2025-05-03 13:54] LABS: Vitamin B12 932.0 pg/mL (239-931)
--- OUTSIDE RECORDS SUMMARY | 2025-05-03 14:23 | XMS_ITS | Clinical Summary ---
Author Organization [facility] Address [address] [place] [address] Care Team Providers Care Terrazzo Laborer Name Role Phone Unavailable Primary Care Provider Unavailabl e Source Comments [facility],non-owned Affiliates and Associated Physician Practices is amultiple site organization consisting of ambulatory clinics and hospital sitesin [place], [place], [place] and [place]. This disclosure is being madepursuant to the Care Everywhere program and may not contain all information available regarding this patient. Last updated 18.[facility] Social History Tobacco Use Types Packs/Day Years [...] yrs (1 - 1-dose 75+ series) 2017 DEPRESSION SCREENING 07/14/2024 MEDICARE AWV CALENDAR YEAR 2024 COVID-19 VACCINE ( - 2023-2 5 season) 2025 INFLUENZA VACCINE (#1) 2025 HEPATITIS B VACCINE [...] patient's age to complete this topic Insurance [facility] MANAGED MEDICARE ADV
--- OUTSIDE RECORDS SUMMARY | 2025-05-03 14:23 | XMS_ITS | Encounter Summary ---
Author Organization [facility] Address [address] [place] [address] Care Team Providers Care Outside Maintenance Worker Name Role Phone Unavailable Primary Care Provider Unavailabl e Encounter Details Date Type Department Care Team (Late st Contact Info) Description 10/05/2024 Lab Requisition [facility] - DermPath Lab [address] [place] [address] Renee Castillo MD [address] [place] [address] Social History Tobacco Use Types Packs/Day Years [...] AM CDT) Case Report Dermatopathology Report Case: [id number] Authorizing Provider: Renee Castillo MD Collected: 10/05/2024 11:20 AM Ordering Location: [facility] - Received: 10/06/2024 09:36 AM DermPath Lab [...] by the Dermatopathology Laboratory at [facility], directed by Dr. Tato Acosta. These tests need not be, and therefore are not, approved by the [place] Food and Drug Administration. The tests are used for clinical purposes. Billing Codes Specimen Charges Stain Charges 30415 1 5 6:02 PM CDT DERMATOPATHOLOGY LABORATORY Embedded Images 6:02 PM CDT DERMATOPATHOLOGY LABORATORY Pathology/Cytolo gy TISSUE SPECIMEN FROM SKIN / Unknown 10/05/2024 11:20 AM CDT 10/06/2024 9:36 AM CDT Renee Castillo MD LAB - PATHOLOGY/CYTOLOGY OR DERABLES Final Result DERMATOPATHOLOGY LABORATORY [facility] - Department of Dermatology [address], [address] [phone] documented in this encounter Visit Diagnoses Not on filedocumented in this encounter
--- OUTSIDE RECORDS SUMMARY | 2025-05-03 14:23 | XMS_ITS | Clinical Summary ---
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 Gender Identity Not on file Sexual Orientation [...] Pneumococcal vaccine 65+ (2 of 2 - PCV20 or PCV21) 04/13/2019 04/13/2018 Fall Risk Assessment 01/26/2021 01/27/2020 Influenza Vaccine (#1) 2025 9, 04/09/2018, 04/03/2017, Additional history exists Insurance [facility] MEDICARE Address: [facility] [address] [place] [address] [facility] MEDICARE ADVANTAGE [facility]ICARE Address: [address] [address] [place] [address] [employer] MEDICARE ADVANTAGE [facility] MEDICARE Address: [address] [address] [place] [address] Care Teams Architect Relationship Specialty Start Date End Date Marcus Childs MD PCP - General 12/11/16
--- OUTSIDE RECORDS SUMMARY | 2025-05-03 14:23 | XMS_ITS | Patient Health Record ---
Author Organization [facility] Address [address] [facility] [address] [place] [address] Care Team Providers Care Outside Machinist Helper Name Role Phone Kymberly Alonzo Unavailable [phone] Reason For Referral No Information Medications Medication SIG (Take, Route, Frequency, Duration) Notes Start Date End Date Status Citalopram Hydrobromide 20 MG Tablet Oral 09/17/2021 Active Atorvastatin Calcium 40 MG Tablet Oral 09/17/2021 Active Gabapentin 100 MG Capsule Oral 09/17/2021 Active Memantine HCl 5 MG Tablet Oral 09/17/2021 Active Spironolactone 25 MG Tablet Oral 09/17/2021 Active Donepezil HCl 10 MG Tablet Oral 09/17/2021 Active Carvedilol 3.125 MG Tablet Oral 09/17/2021 Active Folic Acid 1 MG Tablet Oral 09/17/2021 Active Magnesium Oxide (Elemental) 400 MG Tablet Oral *Reorder from [employer] for eRx and Interaction Alerts* 09/17/2021 Active Cyproheptadine HCl 4 MG Tablet Oral 09/17/2021 Active Ibuprofen 600 MG Tablet Oral 09/17/2021 Active Namenda 5 MG Tablet Oral 09/17/2021 Active DULoxetine HCl 60 MG Capsule Delayed Release Particles Oral 09/17/2021 Active Sildenafil Citrate 100 MG Tablet Oral 09/17/2021 Active traMADol HCl 50 MG Tablet Oral 09/17/2021 Active Metoprolol Succinate ER 25 MG Tablet Extended Release 24 Hour Oral 09/17/2021 Active Lidocaine 5% Patch External 09/17/2021 Active HYDROcodone-Acetaminop hen 5-325 MG Tablet Oral 09/17/2021 Active Lisinopril 2.5 MG Tablet Oral 09/17/2021 Active predniSONE 20 MG Tablet Oral 09/17/2021 Active Meloxicam 15 MG Tablet Oral 09/17/2021 Active Azelastine HCl 137 MCG/SPRAY Solution Nasal 09/17/2021 Active predniSONE 10 MG Tablet Oral 09/17/2021 Active RABEprazole Sodium 20 MG Tablet Delayed Release Oral 09/17/2021 Active Immunizations Vaccine Route Administration Date Status Comme nts Pfizer Biontech Covid-19 Vac cine 2nd dose Unknown 10/23/2020 Administered Pfizer Biontech Covid-19 Vac cine 2nd dose Unknown 11/13/2020 Administered Social History Social History Additional Details Category Social Info Options Details Migrated Social History Migrated Social History Alcohol Intake: None 09/17/2021,Tobacco Years: Never smoker 09/17/2021 Plan Of Treatment No Information Insurance Providers Payer Name Payer Address Payer Phone Subscriber Number Group Number Insured Name Patient Relationship to Insured Coverage Start Date Coverage End Date [facility] [address] [place] [address] [id number] VIRAJ PRETTY Self - patient is the insured
== END 2025-05-03 11:29 | disposition home or self-care (01) ==
LOC: ANHLAB 11:29
PROVIDERS: PCP Internal Medicine; Visit Provider Internal Medicine
DX: E78.2 Mixed hyperlipidemia (principal); E53.8 Deficiency of other specified B group vitamins; I10 Essential (primary) hypertension; E55.9 Vitamin D deficiency, unspecified
CPT/HCPCS: 36415; 80053; 80061; 82306; 82607; 82746